=== PATIENT | female | born 1950 | race Caucasian/White ===

== ENCOUNTER 2024-07-30 10:49 | Outpatient (REF) | payer MEDICARE, SELFPAY ==
--- NOTE | ~2024-07-30 | XR_ITS ---
EXAMINATION: XR LUMBOSACRAL SPINE CLINICAL INFORMATION: M43.16 - Spondylolisthesis, lumbar region COMPARISON: None available. TECHNIQUE: 6 views of the lumbar spine, inclusive of flexion and extension views, were obtained. FINDINGS: There is a minimal right convex scoliosis, possibly positional. There is a normal lordosis. There is no fracture, compression deformity, or suspicious bone lesion. There are degenerative facet changes most notable L4-S1. There are mild to moderate degenerative disc changes L4-5 and L5-S1. There are otherwise mild disc degenerative changes. Neutral view demonstrates an 8 mm anterolisthesis of L4 on L5, and a 6 mm anterolisthesis of L5 on S1, both degenerative in appearance. Suggestion of pars defects at L4-5. On flexion exam, there is an 8 mm anterolisthesis of L4 on L5. There is a stable 6 mm anterolisthesis of L5 on S1. On extension exam there is a stable 8 mm anterolisthesis of L4 on L5. There is a stable 6 mm anterolisthesis of L5 on S1. There are vascular calcifications in the soft tissues. XR/XR lumbar spine 4V min IMPRESSION: 1. Moderate spondylosis of the lumbar spine most significant at L4-S1. 2. 8 mm degenerative anterolisthesis of L4 on L5, with questionable pars defects. 3. 6 mm degenerative anterolisthesis of L5 on S1. 4. Both subluxations appear unchanged on flexion and extension. There is no main film evidence of instability. Electronically signed by: Fermin Traore MD 08/02/2024 02:48 PM EDT
--- NOTE | ~2024-07-30 | XR_ITS ---
EXAMINATION: XR THORACIC SPINE CLINICAL INFORMATION: M54.9 - Dorsalgia, unspecified COMPARISON: None available. TECHNIQUE: 3 views of the thoracic spine were obtained. FINDINGS: There is a minimal levoconvex scoliosis, apex at T8. There is a normal kyphosis. There is no fracture, compression deformity, subluxation, or suspicious bone lesion. There is mild to moderate diffuse disc degeneration present. There is normal facet alignment. On the swimmer's view, degenerative changes of the lower cervical spine present with severe disc degeneration C4-5 and C5-6. Lungs appear somewhat hyperaerated likely reflective of COPD. There are vascular calcifications of the aorta. XR/XR thoracic spine 3V IMPRESSION: 1. No acute findings thoracic spine. Mild to moderate degenerative spondylosis. Electronically signed by: Fermin Traore MD 08/02/2024 02:41 PM EDT
== END 2024-07-30 10:50 | disposition home or self-care (01) ==
LOC: HO.XRAY 10:49
PROVIDERS: PCP Physician Assistant Medical; Referring Provider Internal Medicine Rheumatology; Visit Provider Nurse Practitioner Family
DX: M43.16 Spondylolisthesis, lumbar region (principal); M51.369 Other intervertebral disc degeneration, lumbar region without mention of lumbar back pain or lower extremity pain; M48.061 Spinal stenosis, lumbar region without neurogenic claudication; M54.16 Radiculopathy, lumbar region; M54.50 Low back pain, unspecified; M54.9 Dorsalgia, unspecified
CPT/HCPCS: 72072; 72110; 99202

== ENCOUNTER 2024-07-30 10:49 | Outpatient (AMB) | payer MEDICARE, SELFPAY ==
--- NOTE | 2024-07-30 10:59 | MHC.OFFVIS ---
Vital Signs 07/30/24 11:06 Height 5 ft 8 in Weight 183 lb BMI 27.8 BP 172/77 H Blood Pressure Location Rt brachial Position Sitting Pulse 63 Pulse Source Pulse Oximeter Pulse Oximetry (%) 97 Oxygen Delivery Method Room Air Intake Visit Reasons: Chronic Lower Back Pain/Sciatic Symptoms Intake Note: Pain today 5/10 Allergies erythromycin base Allergy (Unknown, Verified 07/30/24 11:05) Unknown lisinopril Allergy (Unknown, Verified 07/30/24 11:05) cough Medication List - Last Reconciled 07/31/24 by VALENTIN Meneses chlorthalidone 25 mg PO DAILY denosumab (Prolia) 60 mg subcut [id number] diltiazem HCl CD 180 mg PO DAILY famotidine 40 mg PO DAILY fluconazole 100 mg PO DAILY folic acid 1 mg PO DAILY ryan root extract 250 mg PO lidocaine 5% 1 patch topical DAILY 30 days losartan 100 mg PO DAILY magnesium oxide 200 mg PO .prn naproxen 500 mg PO DAILY timolol maleate 0.25% 1 drp ophthalmic (eye) DAILY HPI HPI Chronic Lower Back Pain/Sciatic Symptoms: Details: Patient is a 74 years old female with history of long standing chronic back pain, osteoporosis, RA, lumbar spinal stenosis with neurogenic claudication, presents today for second opinion for worsening low back pain with bilateral radiculopathy, worse on the left. She was referred by [facility]. Patient reports she completed lumbar spine MRI at [facility] in April and was seen by Dr. Echevarria at [facility] and was offered epidural steroid injection. She reports chronic lower back pain with mainly lateral and posterior of left leg numbness, tingling, weakness and bilateral neuropathy for many years, which has been worsening for past one year. She reports her legs become significantly numb during the night. Patient also reports mid-lower back pain when she makes certain movements. She recalls a sudden brief pain episode last month when she turned to the left and this increased her left lower thoracic and lower back pain and was quite unbearable. Patient reports despite daily pain, she remains physically active and used to regularly attend gym and doing hanging bar exercises for back until her late 50's because she injured her arms and shoulders and developed tendinitis. Back pain with sciatica symptoms has been present since her early 60's, alternating both sides but mainly on the left. Reports history of long distance bicycle rider in her 20's. Patient reports she usually walks 2 miles 2-3 times per week using walking sticks for balance. She has little dog at home and lives at home independently with her . Pain has been affecting her daily activities, functioning, mobility, sleep and social interactions. Denies any fever or chills, abdominal or groin pain, infection, rash, swelling, foot drop, bladder or bowel dysfunction, or saddle anesthesia. Reports left lower extremity intermittent weakness and bilateral numbness of both legs, worse at night with supine position. Patient reports history of prednisone treatments for RA in the past while residing in [facility]. She is currently on methotrexate for RA and Prolia for osteoporosis. Patient is a former tobacco smoker, reports h/o alcohol rehabilitation in through . Denies recreational drugs use or coffee intake. Location: Lower back pain with left sciatica, B/L leg numbness w/ supine sleep Duration: Chronic pain for 40 years, worsening for past one year Characteristics of symptom or complaint: Shooting, throbbing, cramping, aching, sore, heavy, radiating, throbbing Aggravating or associated factors: Walking, movements, cold weather, lifting, twisting, prolonged sitting Relieving factors: Heat therapy, Aleve, Tylenol, Aspirin, rest, homeopathic treatments Treatment: PT in 2019, Acupuncture, home exercise program, gym, walking [facility] Medical History (Updated 07/31/24 @ 08:13 by VALENTIN Meneses) Lumbar degenerative disc disease Spinal stenosis of lumbar region with radiculopathy Low back pain GERD (gastroesophageal reflux disease) HTN (hypertension) Rheumatoid arthritis Plantar fasciitis, right Osteoporosis Knee pain Surgical History Hx of tonsillectomy Review of Systems Const All systems reviewed & are unremarkable except as noted in HPI and below Physical Exam Vital Signs: Last Vital Signs Pulse 63 07/30/24 11:06 BP 172/77 H 07/30/24 11:06 Pulse Ox 97 07/30/24 11:06 Oxygen Delivery Method Room Air 07/30/24 11:06 BMI result Body Mass Index 27.8 General: Appears afebrile. Alert and oriented. Mood and affect appropriate. Follows and participates in conversation appropriately. Respiratory effort is unlabored. No cough. Able to transition from sit to stand unassisted. Ambulates with bilaterally normal heel strike and toe off. General: Yes no CVA tenderness Back/Spine/Pelvis Other: Partially limited lumbar ROM due to pain. Lumbar extension and flexion reproduces mild to moderate pain, worse with left lateral axial rotation. No limping. Can flex forward to 75-80 degrees and extend to 5-10 degrees before experiencing lumbar pain. Demonstrates 5/5 right and 4/5 left strength of quadriceps bilaterally as well as flexion/dorsiflexion of bilateral feet against resistance. 2+ pedal pulses bilaterally. Straight leg rise with dorsiflexion positive on the left. +2 right +1 left patellar and diminished achilles reflexes bilaterally. Facet loading test positive bilaterally. Florentino sign tender on the left, slight TTP on the right, Davis?s, Pelvic compression and Stinchfield tests are positive bilaterally, left>right. No groin pain with I/E hip rotations. Valsalva maneuver negative. Back: no CVA tenderness Cervical Spine: cervical ROM normal, No cervical muscular tenderness and No Cervical spine tenderness Thoracic/Lumbar Spine: thoracic and lumbar spine normal to inspection, No Thoracic/lumbar spine scar(s), Lasegue's sign positive on the left, pain with thoraco-lumbar ROM, paraspinal muscle tenderness on the left greater than right, thoraco-lumbar ROM limited, thoracic spinal tenderness (mid to lower thoracic) and lumbar spinal tenderness at L4 and at L5 Pelvis: buttock tenderness on the left Sacroiliac joints: bilaterally tender to palpation Extrem General: Yes capillary refill normal, Yes no clubbing, cyanosis or edema and Yes no calf tenderness Results Reviewed Results Reviewed: MR SPINE LUMBAR without CONTRAST 04/28/24 at [facility] INDICATION: Stenosis and nerve root impingement. Chronic lower back pain with left leg numbness, weakness, and neuropathy for many years. Left sciatica. TECHNIQUE: Unenhanced multiplanar, multisequence MR imaging of the lumbar spine. COMPARISON: None Available. FINDINGS: Grade I anterolisthesis of L4 on L5. Approximately 4 mm of slippage anteriorly. Normal signal intensity distal cord. Conus ends normally at L1 level. Bone marrow signal is within normal limits, and no suspicious osseous lesion is identified. Paraspinal soft tissues and visualized portions of the abdomen and pelvis are unremarkable. At T12-L1 there is diffuse bulge causing mild effacement of the central canal. No significant impression on the distal cord. At L1-2 there is diffuse bulge causing mild effacement of the thecal sac. At L2-3 there is diffuse bulge causing mild effacement of the thecal sac. At L3-4 there is diffuse bulge causing mild effacement of the thecal sac. At L4-5 there is diffuse bulge, facet joint arthropathy and hypertrophy of the ligamentum flavum contributing to a severe stenosis. Diffuse bulge extends into the left neural foramen narrowing the foramen but no significant impression on the exiting nerve root. At L5-S1 there is diffuse bulge and facet joint arthropathy causing moderate effacement of the thecal sac. Diffuse bulge is slightly touching the exiting right L5 nerve root beyond the foramen. IMPRESSION: Alignment abnormalities, degenerative disc disease and degenerative changes throughout the lower thoracic and lumbar spines as described. Findings are most severe at L4-5 where there is a severe stenosis. Assessment & Plan Assessment & Plan (1) Lumbar degenerative disc disease: Code(s): M51.369 - Other intervertebral disc degeneration, lumbar region without mention of lumbar back pain or lower extremity pain Category: Medical (2) Spinal stenosis of lumbar region with radiculopathy: Code(s): M48.061 - Spinal stenosis, lumbar region without neurogenic claudication; M54.16 - Radiculopathy, lumbar region Category: Medical (3) Low back pain: Code(s): M54.50 - Low back pain, unspecified Category: Medical (4) Lumbar degenerative disc disease: Code(s): M51.369 - Other intervertebral disc degeneration, lumbar region without mention of lumbar back pain or lower extremity pain Category: Medical (5) Spinal stenosis of lumbar region with radiculopathy: Code(s): M48.061 - Spinal stenosis, lumbar region without neurogenic claudication; M54.16 - Radiculopathy, lumbar region Category: Medical (6) Low back pain: Code(s): M54.50 - Low back pain, unspecified Category: Medical (7) Spondylolisthesis of lumbar region: Code(s): M43.16 - Spondylolisthesis, lumbar region Category: Medical (8) Mid back pain: Code(s): M54.9 - Dorsalgia, unspecified Category: Medical (9) Spinal stenosis of lumbar region with radiculopathy: Code(s): M48.061 - Spinal stenosis, lumbar region without neurogenic claudication; M54.16 - Radiculopathy, lumbar region Category: Medical (10) Sacroiliitis: Code(s): M46.1 - Sacroiliitis, not elsewhere classified Category: Medical Plan Discussed interventional treatments for lumbar stenosis related pain as well as axial low back pain with mild SIJ pain components. Due to osteoporosis, we will avoid therapeutic [place] and proceed with Neurosurgery evaluation with our colleagues at [facility]. Thoracic spine and lumbar spine with flexion and extension imaging to assess degree of degenerative changes, any subluxation, listhesis, compression fractures or pars defects and follow up on recent MRI findings. Script provided for lidocaine patches per patient's request. Patient is aware to call if pain worsens or if she develops any red flag symptoms to seek emergency care. Patient denies any cauda equina syndrome symptoms at this time. All questions and concerns have been answered and patient agreed with the plan. Follow up for xray results/Neurosurgery eval and sooner as needed. Orders: Orders XR lumbar spine 4V min 07/30/24 M43.16 - Spondylolisthesis, lumbar region, M48.061 - Spinal stenosis, lumbar region without neurogenic claudication, M51.369 - Other intervertebral disc degeneration, lumbar region without mention of lumbar back pain or lower extremity pain, M54.16 - Radiculopathy, lumbar region, M54.50 - Low back pain, unspecified XR thoracic spine 3V 07/30/24 M54.9 - Dorsalgia, unspecified Referrals Neuro Spine Referral M48.061 - Spinal stenosis, lumbar region without neurogenic claudication, M54.16 - Radiculopathy, lumbar region Medications: New lidocaine 5% 1 patch topical DAILY 30 days 30 ea 0RF pain M48.061 - Spinal stenosis, lumbar region without neurogenic claudication, M51.369 - Other intervertebral disc degeneration, lumbar region without mention of lumbar back pain or lower extremity pain, M54.16 - Radiculopathy, lumbar region, M54.50 - Low back pain, unspecified Coding Level of Care Code New Pt Level 4 (01048) Complex EM visit Add On G2211 Diagnoses Lumbar degenerative disc disease M51.369 Spinal stenosis of lumbar region with radiculopathy M48.061; M54.16 Low back pain M54.50 Spondylolisthesis of lumbar region M43.16 Mid back pain M54.9 Sacroiliitis M46.1
[2024-07-30 11:06] VITALS: BP 172/77; PULSE 63; O2SAT 97; BMI 27.8
--- OUTSIDE RECORDS SUMMARY | 2024-07-30 12:20 | XMS_ITS | Data Portability ---
Author Organization [place] - [employer] [facility], autoContract - [facility]Trans [facility] Address [address] [place] [address] Assessment Encounter Date Assessment Date Assessment LastModified by Organization Details LastModified Time 04/09/2024 04/09/2024 Head injury from garage door accident - Assessment: No signs of concussion or significant damage. Patient reports tenderness and a bump on the head. - Plan: - Reassure the patient that the injury is healing - Advise her to monitor for any worsening symptoms or new neurological symptoms - If symptoms worsen, consider re-evaluation Microvascular ischemia - Assessment: Incidental finding on the CT scan. - Plan: - Continue with preventative health measures, including blood pressure and cholesterol management. BP well controlled. On statin. LDL at goal - Encourage her to maintain a healthy lifestyle, including regular exercise and a balanced diet Risks and benefits of the treatment plan were discussed thoroughly with patient. Patient is in agreement with the current plan of care and all questions were answered. Patient agreed to call immediately with any new or worsening symptoms for advice. Patient will follow up in 1 week if not improving (or as above) Not available 04/09/2024 15:18:07 05/13/2024 05/13/2024 Patient verbally consented to participate in a telehealth visit today. Prior to visit patient was offered a face to face encounter as well but preferred telemedicine. The patient is aware that if at any point they or the provider feel the visit is in not adequate they can opt for scheduling a face to face visit. Verbal consent for this telehealth visit was obtained after limitations of telehealth were discussed with the patient. Risk of using a telemedicine provider include limited overall physical examination findings which may be difficult with diagnostic accuracy. OV declined Video not available IGT A1c 5.7 Continue diet exercise Reassess 4 to 6 months Hypocalcemia Possible secondary hyperparathyroidism Improvement on calcium and vitamin D without resolution Previous significant increase in PTH may have been secondary to recent Prolia injection Patient is interested in further evaluation off hypocalcemia and osteoporosis, will refer to endocrinology Restless legs Ferritin 72 Continue periodic monitoring of iron levels Venous insufficiency Plan in place with [facility] vein center Spinal stenosis Plan in place with orthopedics, considering ESL Microvascular ischemic changes on head CT at ER, possible history of infarction Check cranial MRI Normal echo 2017 Chronic inflammatory disorder may be contributing Continue best efforts at modifying vascular risk factors Hyperlipidemia CAC score 120 (2019), repeat 2024 Continue rosuvastatin 5 qd RA Plan in place with rheumatology Patient is in agreement with the current plan of care and all questions were answered. Patient agreed to call immediately or go straight to the emergency room with any new or worsening symptoms, or any symptoms that patient or others find worrisome; patient will proceed to the ER immediately if unable to reach our office Patient will follow up if no improvement after implementing care plan above Not available 05/15/2024 19:51:55 Plan of Treatment Reminders Order Date Submit Date Provider Last Modified By Organization Details Last Modified Time Details Appointments None recorded . Lab CBC 024 05/15/20 [facility], [address], [place], [address], 4 19:50:25 iron + TIBC + ferritin , serum 024 05/15/20 [facility], [address], [place], [address], 4 19:50:24 CMP, serum or plasma 024 05/15/20 [facility], [address], [place], [address], 4 19:50:26 HbA1c (hemoglo bin A1c), blood 024 05/15/20 [facility], [address], [place], [address], 4 19:50:25 lipid panel, serum 024 05/15/20 [facility], [address], [place], [address], 19:50:26 Referral None recorded . Procedures None recorded . Surgeries None recorded . Imaging None recorded . Medication Orders None recorded . Patient TargetsNo targets recorded. Patient InstructionsNo instructions recorded. Reason for Referral None Reported. Results Created Date Observation Date Name Description Value Unit Range Abnormal Flag Note LastModifiedBy Organization Detail LastModifiedTime 05/06/20 24 05/07/2024 PTH, INTAC T (ICMA ) AND IONIZ ED CALCI UM parathyroid hormone, intact 114 pg/mL 16-77 high Inter preti ve Guide Intac t PTH Calci um ----- ----- ----- --- ----- ----- ----- -- Lorena l Parat hyroi d Lorena l Lorena l Hypop yandy yroid ism Low or Low Lorena l Low Hyper parat hyroi dism Prima ry Lorena l or High High Secon jovita High Lorena l or Low Terti anthony High High Non-P yandy yroid Hyper calce theodore Low or Low Lorena l High Not Available [facility] [place] [facility] [address], [address], 05/07/2024 14:52:34 05/06/20 24 05/07/2024 PTH, INTAC T (ICMA ) AND IONIZ ED CALCI UM calcium 8.5 mg/dL 8.6-10 .4 low Not Available [facility] [place] [facility] [address], [address], 05/07/2024 14:52:34 05/06/20 24 05/07/2024 PTH, INTAC T (ICMA ) AND IONIZ ED CALCI UM calcium, ionized 4.8 mg/dL 4.7-5. 5 normal Not Available [facility] [address], [address], 05/07/2024 14:52:34 05/06/20 24 05/07/2024 LIPID PANEL WITH REFLE X TO DIREC T LDL cholesterol, total 174 mg/dL <200 normal Not Available [facility] [place] [facility] [address], [place], [address], 05/07/2024 14:52:35 05/06/20 24 05/07/2024 LIPID PANEL WITH REFLE X TO DIREC T LDL HDL cholesterol 80 mg/dL > or = 50 normal Not Available [facility] [place] [facility] [address], [place], [address], 05/07/2024 14:52:35 05/06/20 24 05/07/2024 LIPID PANEL WITH REFLE X TO DIREC T LDL triglyceride s 72 mg/dL <150 normal Not Available [facility] [place] [facility] [address], [place], [address], 05/07/2024 14:52:35 05/06/20 24 05/07/2024 LIPID PANEL WITH REFLE X TO DIREC T LDL LDL-choleste rol 79 mg/dL _(charles c) normal Refer ence range : <100 Tommy able range <100 mg/dL for prima ry preve ntion ; <70 mg/dL for patie nts with CHD or diabe tic patie nts with > or = 2 CHD risk facto rs. LDL-C is now calcu lated using the Emily n-Hop kins calcu jace n, which is a valid ated novel metho d provi ding mick r accur acy than the Fried balaji equat ion in the estim ation of LDL-C . Emily ahn SS et al. MELBA. 2013; 310(1 9): 2061- 2068 (http ://ed ucati on.Qu Rowena obrienIngageapps. com/f aq/FA Q164) Not Available [facility] [address], [place], [address], 05/07/2024 14:52:35 05/06/20 24 05/07/2024 LIPID PANEL WITH REFLE X TO DIREC T LDL chol/HDLC ratio 2.2 (calc ) <5.0 normal Not Available [facility] [address], [place], [address], 05/07/2024 14:52:35 05/06/20 24 05/07/2024 LIPID PANEL WITH REFLE X TO DIREC T LDL non HDL cholesterol 94 mg/dL _(charles c) <130 normal For patie nts with diabe romeo plus 1 major ASCVD risk facto r, treat ing to a non-H DL-C goal of <100 mg/dL (LDL- C of <70 mg/dL ) is chase oden therakshat rhodes optio n. Not Available [facility] [address], [place], [address], 05/07/2024 14:52:35 05/06/20 24 05/07/2024 IRON AND TOTAL IRON SHELLY NG CAPAC ITY iron, total 90 mcg/d L 45-160 normal Not Available [facility] [address], [place], [address], 05/07/2024 14:52:35 05/06/20 24 05/07/2024 IRON AND TOTAL IRON SHELLY NG CAPAC ITY iron binding capacity 319 mcg/d L_(ca lc) 250-45 0 normal Not Available [facility] [address], [place], [address], 05/07/2024 14:52:35 05/06/20 24 05/07/2024 IRON AND TOTAL IRON SHELLY NG CAPAC ITY % saturation 28 %_(ca lc) 16-45 normal Not Available [facility] [address], [place], [address], 05/07/2024 14:52:35 05/06/20 24 05/07/2024 COMPR EHENS NOMI METAB OLIC PANEL glucose 105 mg/dL 65-99 high Fasti ng refer ence inter ceasar For someo ne witho ut known diabe romeo, a gluco se value betwe en 100 and 125 mg/dL is consi stent with predi abete s and shoul d be confi rmed with a follo w-up test. Not Available [facility] [place] [facility] [address], [place], [address], 05/07/2024 14:52:36 05/06/2005/07/2024 COMPR EHENS NOMI METAB OLIC PANEL urea nitrogen (BUN) 15 mg/dL 7-25 normal Not Available [facility] [address], [place], [address], 05/07/2024 14:52:36 05/06/20 24 05/07/2024 COMPR EHENS NOMI METAB OLIC PANEL creatinine 0.70 mg/dL 0.60-1 .00 normal Not Available [facility] [place] [facility] [address], [place], [address], 05/07/2024 14:52:36 05/06/20 24 05/07/2024 COMPR EHENS NOMI METAB OLIC PANEL eGFR 92 mL/mi n/1.7 3m2 > or = 60 normal Not Available [facility] [address], [place], [address], 05/07/2024 14:52:36 05/06/20 24 05/07/2024 COMPR EHENS NOMI METAB OLIC PANEL BUN/creatini ne ratio SEE NOTE: (calc ) 6-22 Not Repor hill: BUN and Creat inine are withi n refer ence range . Not Available [facility] [address], [place], [address], 05/07/2024 14:52:36 05/06/20 24 05/07/2024 COMPR EHENS NOMI METAB OLIC PANEL sodium 140 mmol/ L 135-14 6 normal Not Available [facility] [address], [place], [address], 05/07/2024 14:52:36 05/06/20 24 05/07/2024 COMPR EHENS NOMI METAB OLIC PANEL potassium 4.2 mmol/ L 3.5-5. 3 normal Not Available [facility] [address], [place], [address], 05/07/2024 14:52:36 05/06/20 24 05/07/2024 COMPR EHENS NOMI METAB OLIC PANEL chloride 106 mmol/ L 98-110 normal Not Available [facility] [address], [place], [address], 05/07/2024 14:52:36 05/06/20 24 05/07/2024 COMPR EHENS NOMI METAB OLIC PANEL carbon dioxide 26 mmol/ L 20-32 normal Not Available [facility] [address], [place], [address], 05/07/2024 14:52:36 05/06/20 24 05/07/2024 COMPR EHENS NOMI METAB OLIC PANEL calcium 8.5 mg/dL 8.6-10 .4 low Not Available [facility] [address], [place], [address], 05/07/2024 14:52:36 05/06/20 24 05/07/2024 COMPR EHENS NOMI METAB OLIC PANEL protein, total 7.0 g/dL 6.1-8. 1 normal Not Available [facility] [address], [place], [address], 05/07/2024 14:52:36 05/06/20 24 05/07/2024 COMPR EHENS NOMI METAB OLIC PANEL albumin 3.9 g/dL 3.6-5. 1 normal Not Available [facility] [address], [place], [address], 05/07/2024 14:52:36 05/06/20 24 05/07/2024 COMPR EHENS NOMI METAB OLIC PANEL globulin 3.1 g/dL_ (calc ) 1.9-3. 7 normal Not Available [facility] [address], [place], [address], 05/07/2024 14:52:36 05/06/20 24 05/07/2024 COMPR EHENS NOMI METAB OLIC PANEL albumin/glob ulin ratio 1.3 (calc ) 1.0-2. 5 normal Not Available [facility] [address], [place], [address], 05/07/2024 14:52:36 05/06/20 24 05/07/2024 COMPR EHENS NOMI METAB OLIC PANEL bilirubin, total 0.6 mg/dL 0.2-1. 2 normal Not Available [facility] [address], [place], [address], 05/07/2024 14:52:36 05/06/20 24 05/07/2024 COMPR EHENS NOMI METAB OLIC PANEL alkaline phosphatase 72 U/L 37-153 normal Not Available [facility] [address], [place], [address], 05/07/2024 14:52:36 05/06/20 24 05/07/2024 COMPR EHENS NOMI METAB OLIC PANEL AST 20 U/L 10-35 normal Not Available [facility] [address], [place], [address], 05/07/2024 14:52:36 05/06/20 24 05/07/2024 COMPR EHENS NOMI METAB OLIC PANEL ALT 25 U/L 6-29 normal Not Available [facility] [place] [facility] [address], [place], [address], 05/07/2024 14:52:36 05/06/20 24 05/07/2024 CBC (INCL UDES DIFF/ PLT) white blood cell count 5.6 thous and/u L 3.8-10 .8 normal Not Available [facility] [place] [facility] [address], [place], [address], 05/07/2024 14:52:36 05/06/20 24 05/07/2024 CBC (INCL UDES DIFF/ PLT) red blood cell count 4.27 ashok on/uL 3.80-5 .10 normal Not Available [facility] [place] [facility] [address], [place], [address], 05/07/2024 14:52:36 05/06/20 24 05/07/2024 CBC (INCL UDES DIFF/ PLT) hemoglobin 13.4 g/dL 11.7-1 5.5 normal Not Available [facility] [place] [facility] [address], [place], [address], 05/07/2024 14:52:36 05/06/20 24 05/07/2024 CBC (INCL UDES DIFF/ PLT) hematocrit 40.5 % 35.0-4 5.0 normal Not Available [facility] [place] [facility] [address], [place], [address], 05/07/2024 14:52:36 05/06/20 24 05/07/2024 CBC (INCL UDES DIFF/ PLT) MCV 94.8 fL 80.0-1 00.0 normal Not Available [facility] [place] [facility] [address], [place], [address], 05/07/2024 14:52:36 05/06/20 24 05/07/2024 CBC (INCL UDES DIFF/ PLT) MCH 31.4 pg 27.0-3 3.0 normal Not Available [facility] [place] [facility] [address] [place], [place], [address], 05/07/2024 14:52:36 05/06/20 24 05/07/2024 CBC (INCL UDES DIFF/ PLT) MCHC 33.1 g/dL 32.0-3 6.0 normal For adult s, a sligh t decre ase in the calcu lated MCHC value (in the range of 30 to 32 g/dL) is most likel y not clini maikol signi fican t; fahad er, it shoul d be inter prete d with cauti on in corre lat n with other red cell tj eters and the patie nt's clini charles condi tion. Not Available [facility] [place] [facility] [address] [place], [place], [address], 05/07/2024 14:52:36 05/06/20 24 05/07/2024 CBC (INCL UDES DIFF/ PLT) RDW 14.1 % 11.0-1 5.0 normal Not Available [facility] [address] [place], [place], [address], 05/07/2024 14:52:36 05/06/20 24 05/07/2024 CBC (INCL UDES DIFF/ PLT) platelet count 275 thous and/u L 140-40 0 normal Not Available [facility] [address] [place], [place], [address], 05/07/2024 14:52:36 05/06/20 24 05/07/2024 CBC (INCL UDES DIFF/ PLT) MPV 10.3 fL 7.5-12 .5 normal Not Available [facility] [address], [place], [address], 05/07/2024 14:52:36 05/06/20 24 05/07/2024 CBC (INCL UDES DIFF/ PLT) absolute neutrophils 3662 cells /uL 1500-7 800 normal Not Available [facility] [place] [facility] [address], [place], [address], 05/07/2024 14:52:36 05/06/20 24 05/07/2024 CBC (INCL UDES DIFF/ PLT) absolute lymphocytes 1019 cells /uL 850-39 00 normal Not Available [facility] [place] [facility] [address], [place], [address], 05/07/2024 14:52:36 05/06/20 24 05/07/2024 CBC (INCL UDES DIFF/ PLT) absolute monocytes 538 cells /uL 200-95 0 normal Not Available [facility] [place] [facility] [address], [place], [address], 05/07/2024 14:52:36 05/06/20 24 05/07/2024 CBC (INCL UDES DIFF/ PLT) absolute eosinophils 330 cells /uL 15-500 normal Not Available [facility] [place] [facility] [address], [place], [address], 05/07/2024 14:52:36 05/06/20 24 05/07/2024 CBC (INCL UDES DIFF/ PLT) absolute basophils 50 cells /uL 0-200 normal Not Available [facility] [place] [facility] [address], [place], [address], 05/07/2024 14:52:36 05/06/20 24 05/07/2024 CBC (INCL UDES DIFF/ PLT) neutrophils 65.4 % normal Not Available [facility] [place] [facility] [address], [place], [address], 05/07/2024 14:52:36 05/06/20 24 05/07/2024 CBC (INCL UDES DIFF/ PLT) lymphocytes 18.2 % normal Not Available [facility] [place] [facility] [address], [place], [address], 05/07/2024 14:52:36 05/06/20 24 05/07/2024 CBC (INCL UDES DIFF/ PLT) monocytes 9.6 % normal Not Available [facility] [place] [facility] [address], [place], [address], 05/07/2024 14:52:36 05/06/20 24 05/07/2024 CBC (INCL UDES DIFF/ PLT) eosinophils 5.9 % normal Not Available [facility] [place] [facility] [address], [place], [address], 05/07/2024 14:52:36 05/06/20 24 05/07/2024 CBC (INCL UDES DIFF/ PLT) basophils 0.9 % normal Not Available [facility] [place] [facility] [address], [place], [address], 05/07/2024 14:52:36 05/06/20 24 05/07/2024 GLADYS TIN ferritin 72 NG/mL 16-288 normal Not Available [facility] [place] [facility] [address], [address], 05/07/2024 14:52:37 05/06/20 24 05/07/2024 VITAM IN D,25- OH,TO MIGUEL,I A vitamin D,25-oh,tota l,ia 36 NG/mL 30-100 normal Vitam in D Statu s 25-OH Vitam in D: Defic iency : <20 ng/mL Insuf ficie ncy: 20 - 29 ng/mL Optim al: > or = 30 ng/mL For 25-OH Vitam in D testi ng on patie nts on D2-blanchard pplem entat ion and patie nts for whom quant itati on of D2 and D3 fract ions is requi red, the [facility] Ass[facility] eD(TM ) 25-OH VIT D, (D2,D 3), LC/MS /MS is recom leann d: order code 57509 (amena ents >2yrs ). See Note 1 Note 1 For addit ional infor bassam de la cruz refer to http: //[facility] manuel ahn.Kane stDia gnost ics.c om/fa q/FAQ 199 (This link is being provi ded for infor abby quezada/ educa gema l purpo ses only. ) Not Available [facility] [place] [facility] [address], [address], 05/07/2024 14:52:37 05/06/20 24 05/07/2024 HEMOG LOBIN A1C WITH MPG hemoglobin A1C 5.7 %_of_ total _HGB <5.7 high For someo ne witho ut known diabe romeo, a hemog lobin A1c value betwe en 5.7% and 6.4% is consi stent with predi abete s and shoul d be confi rmed with a follo w-up test. For someo ne with known diabe romeo, a value <7% indic ates that their diabe romeo is well contr olled . A1c targe ts shoul d be indiv idual ized based on durat ion of diabe romeo, age, comor bid condi tions , and other consi derat ions. This assay resul t is consi stent with an incre ased risk of diabe romeo. Curre ntly, no conse nsus exist s regar ding use of hemog lobin A1c for diagn osis of diabe romeo for child angel. Not Available [facility] [place] [facility] [address], [address], 05/07/2024 14:52:38 05/06/20 24 05/07/2024 HEMOG LOBIN A1C WITH MPG mean plasma glucose 126 mg/dL _(charles c) Not Available [facility] [place] [facility] [address], [place], [address], 05/07/2024 14:52:38 05/04/20 24 05/03/2024 MRI, lumba r spine , w/o contr ast No observ ation record ed. [id number] [facility] [place] [address] [facility] [address], [place], [address], 05/09/2024 20:11:43 Result Notes None recorded. Problems Name Problem SNOMED Code Status Onset Date Resolution Date Notes Provider Name and Address Organization Details Recorded Time History of procedure 081443309 Active 2017 Echo Normal 08/29/17; TMC6Uuroh iption: History of echocardi ogram; QZQ50Omxm ription: History of echocardi ogram; dlname: Billie; dfname: Rita; Physician _Suffix: [place]; Physician _Phone: tel:[phone]; Physician _Fax: fax:[phone]; Physician _Addr1: [address] [place] [address]; Physician _Addr2: [facility] 6; Physician _City: [place]; Physician _State: [place]; Physician _PostalCo de: [id number]; Not Available [facility] 5 11:24:16 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 55862910091 645499 Active 2016 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/2015; TNZ6Ohyga iption: Neuropath y involving both lower extremiti es; NSP21Smbz ription: Neuropath y involving both lower extremiti es; NPI: [id number] 2; Not Available [facility] 5 11:24:16 Detachmen t of retina of left eye 47838308827 617426 Active 2019 Detached retina, left; JFZ1Immlw iption: Detached retina, left; CWS78Stjd ription: Detached retina, left; NPI: [id number] 2; Not Available [facility] 5 11:24:16 History of arthrosco py of knee joint 778143025 Active 2016 H/O arthrosco py of right knee; CEU2Hzfpe iption: H/O arthrosco py of right knee; MBE19Glxb ription: H/O arthrosco py of right knee; NPI: [id number] 2; Not Available [facility] 5 11:24:16 Electromy ogram abnormal 398601134 Active 2017 EMG LE 08/02/15; VZK5Axeof iption: Abnormal EMG; CKD48Mlim ription: Abnormal EMG; Not Available [facility] 5 11:24:16 Essential hypertens ion 11070379 Active 2016 Essential hypertens ion; FBY4Ogcxq iption: Essential hypertens ion; PQB99Frwf ription: Essential hypertens ion; NPI: [id number] 2; Not Available [facility] 5 11:24:17 Body mass index 25-29 - overweigh t 329501874 Active 2018 Overweigh t (BMI 25.0-29.9 ); OZG9Uhxht iption: Overweigh t (BMI 25.0-29.9 ); CMB21Vazs ription: Overweigh t (BMI 25.0-29.9 ); NPI: [id number] 2; Not Available [facility] 5 11:24:18 Chronic low back pain 591485704 Active 2018 Chronic bilateral low back pain with sciatica; KLR3Coqsv iption: Chronic bilateral low back pain with sciatica; SJL74Zaff ription: Chronic bilateral low back pain with sciatica; NPI: [id number] 2; Not Available [facility] 5 11:24:18 Degenerat ion of lumbar intervert ebral disc 54500424 Active 2019 Lumbar degenerat nomi disc disease; CYD8Clwmz iption: Lumbar degenerat nomi disc disease; BLU68Zdsz ription: Lumbar degenerat nomi disc disease; dlname: Delia; dfname: Blanchard; dminit: Gym; Physician _Suffix: MD; Physician _Specialt y: Rehabilit ation Medicine; NPI: [id number] 9; Not Available [facility] 5 11:24:19 History of cardiovas cular disease 414579766 Active 2017 History of Raynaud's syndrome; MVV4Lnwne iption: History of Raynaud's syndrome; JLN21Igdb ription: History of Raynaud's syndrome; Not Available [facility] 5 11:24:19 Senile osteoporo sis 22211095 Active 2017 osteoporo sis BMD 09/16/2017 ; T -2.7 spine, T -2.1; WXL1Ewuth iption: Age-relat ed osteoporo sis without current pathologi charles fracture; RPS69Aehk ription: Age-relat ed osteoporo sis without current pathologi charles fracture; NPI: [id number] 2; Not Available [facility] 5 11:24:20 Glaucoma 69338829 Active 2022 Unspecifi ed glaucoma; HGU3Mcftp iption: Unspecifi ed glaucoma; RIR96Vezy ription: Unspecifi ed glaucoma; NPI: [id number] 2; Not Available [facility] 5 11:24:21 Rheumatoi d arthritis of multiple joints 969880543 Active 2016 Rheumatoi d arthritis involving multiple sites with positive rheumatoi d factor; UYJ4Bcjqj iption: Rheumatoi d arthritis involving multiple sites with positive rheumatoi d factor; RNT18Anmo ription: Rheumatoi d arthritis involving multiple sites with positive rheumatoi d factor; NPI: [id number] 2; Not Available [facility] 5 11:24:22 Lumbar radiculop athy 354514674 Active 2019 Lumbar radiculop athy; KFU4Fqlby iption: Lumbar radiculop athy; ROU19Tioj ription: Lumbar radiculop athy; NPI: [id number] 9; Not Available [facility] 5 11:24:23 History of glaucoma 743561757 Active 2016 History of glaucoma; NIU1Fmsqv iption: History of glaucoma; QVH26Zrzj ription: History of glaucoma; NPI: [id number] 2; Not Available [facility] 5 11:24:23 Mixed hyperlipi demia 321703884 Active 2019 Mixed hyperlipi demia; AJS2Snqnl iption: Mixed hyperlipi demia; CZO42Gbcu ription: Mixed hyperlipi demia; NPI: [id number] 2; Not Available [facility] 5 11:24:23 Venous insuffici ency of leg 264137406 Active 2016 Venous insuffici ency of both lower extremiti es; LBR1Jjwre iption: Venous insuffici ency of both lower extremiti es; DGA44Epnm ription: Venous insuffici ency of both lower extremiti es; NPI: [id number]; Not Available [facility] 5 11:24:23 Restless legs 38563259 Active 2023 ANTONIETTA Carvajal [address], [place], [address] , [facility] 4 19:50:23 Spinal stenosis of lumbar region 01494678 Active 2023 ANTONIETTA Carvajal [address], [place], [address] , [place] [facility] 4 19:50:24 Periphera l venous insuffici ency 95553137 Active 2023 ANTONIETTA Carvajal [address], [place], [address] , [place] 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 4 19:50:29 Osteoporo sis 78273637 Active 2023 ANTONIETTA Carvajal [address], [place], , [place] [facility] 4 19:50:30 Impaired glucose tolerance 3872747 Active 2023 ANTONIETTA Carvajal [address], [place], , [facility] 4 19:50:33 Rheumatoi d arthritis 09840356 Active 2023 ANTONIETTA Carvajal [address] [place] [address], [address] , [facility] 4 19:52:06 Calcifica tion of coronary artery 037288941 Active 2023 ANTONIETTA Carvajal [address] [place] [address], [address] , [facility] 4 19:52:28 Problem Notes None recorded. Procedures Surgical History None recorded. Imaging Results Imaging Date Name Status LastModified by Organiz [facility] Details LastModified Time 05/03/2024 MRI, lumbar spine, w/o contrast completed [facility] [address] [facility] [address], [place], [address], 05/09/2024 20:11:43 Procedure Notes None recorded. Medical Equipment None Reported. Allergies Allergen ID Allergen Name Allergen Category Reaction Reaction Severity Criticality Documentation Date Start Date Code Code System Note Provider Name and Address Organization Details Recorded Time 1166 erythromy rico medicatio n Not available Not available Not available 04/09/2024 4053 RxNorm Rita Billie [facility] 4 14:22:49 1167 lisinopri l medicatio n Not available Not available Not available 04/09/2024 38182 RxNorm Rita Billie [facility] 4 14:23:03 Medications Name Sig Start Date Stop Date Status Note LastModified by Organization Details LastModified Time latanopro st 0.005 % eye drops INSTILL 1 DROP INTO LEFT EYE AT BEDTIME 2022 active Not Available Not Available Not Avai lable fluconazo le 100 mg tablet 04/09 completed Not Available Not Available Not Available diltiazem ER 180 mg capsule,2 4 hr,extend ed release Take 1 capsule (180 mg total) by mouth daily. 2023 active dfname: Syd kirkland; dlname: Avalos; Physicia n_Addr1: [address]; Physicia n_Addr2: [facility]; Physicia n_City: [place] ; Physicia n_State: [place]; [place] n_Postal Code: [id number]; NPI: [id number]; Physicia n_Suffix : SHAYNE; [employer] n_Phone: tel: [phone]; [employer] n_Fax: fax: [phone]; [place] n_Specia lty: Director [employer] ; Not Available Not Available Not Available diltiazem CD 180 mg capsule,e xtended release 24 hr active Not Available Not Available Not Available chlorthal idone 25 mg tablet 04/09 completed Not Available Not Available Not Available methotrex ate sodium 2.5 mg tablet Take 10 tablets (25 mg total) by mouth once a week. active dfname: Lillyic al; dlname: Henok ; [place] n_Addr1: [address] [facility]; [place] n[place]City: [place]; Physicia n_State: [place]; [place] n_Postal Code: [id number]; NPI: [id number]; Physicia n_Suffix : [place]; [employer] n_Phone: tel:[phone]; Not Available Not Available Not Available nystatin- triamcino lone 100,000 unit/g-0. 1 % topical cream Apply topicall y 2 (two) times a day. 05/13 completed Not Available Not Available Not Available folic acid 1 mg tablet Take 1 tablet (1 mg total) by mouth 4 (four) times a week. active NPI: [id number]; Not Available Not Available Not Available timolol maleate 0.5 % eye drops INSTILL 1 DROP INTO BOTH EYES TWICE A DAY active Not Available Not Available No t Available losartan 100 mg tablet TAKE 1 TABLET BY MOUTH DAILY active Not Available Not Available No t Available naproxen 500 mg tablet active Not Available Not Available Not Available rosuvasta tin 5 mg tablet TAKE 1 TABLET BY MOUTH DAILY active Not Available Not Available No t Available denosumab 60 mg/mL subcutane ous syringe Inject 1 mL (60 mg total) under the skin once. active NPI: [id number]; Not Available Not Available Not Available Vyzulta 0.024 % eye drops active Not Available Not Available No t Available Vitals Date Recorded Body weight Heart rate Systolic blood pressure Diastolic blood pressure Provider Name and Address Organization Details Last Updated DateTime 04/09/2024 20431.29 g 63 /min 122 mm[Hg] 75 mm[Hg] Rita Wise [facility] 04/09/2024 14:25:41 Social History None recorded. Functional Status None recorded. Mental Status None recorded. Family History Nothing Reported. Medical History No medical history recorded. Gynecological HistoryNo gynecological history recorded. Obstetrics History GPAL:G 0 P 0 0 0 0 Immunizations Vaccine Type Date Status Note Provider Nam e and Address Organization Details Recorded Time Td (adult), 5 Lf tetanus toxoid, preservative free, adsorbed 2 completed Not Available [facility] 07/05/2024 11:41:31 Tdap 9 completed Not Available [facility] 07/05/2024 11:41:31 COVID-19, mRNA, LNP-S, PF, 30 mcg/0.3 mL dose 1 completed Not Available [facility] 07/05/2024 11:41:31 COVID-19, mRNA, LNP-S, PF, 30 mcg/0.3 mL dose 1 completed Not Available [facility] 07/05/2024 11:41:31 Past Encounters Encounter ID Performer Location Encounter Start Date Encounter Closed Date Diagnosis/Indication Diagnosis SNOMED-CT Code Diagnosis ICD10 Code Diagnosis Note [id number] Shannan Keller APRN [id number] A_PCP [address] [place] [phone] 04/09/2024 14:04:42 04/09/2024 15:31:26 Injury of head 45987360 S09.90XA Contusion of head 135641 009 S00.93XA [id number] ANTONIETTA Carvajal [id number] A_PCP [address] [place] [id number] 1 05/13/2024 07:01:04 05/17/2024 10:16:35 Impaired glucose tolerance 4338862 R73.03 High hemog lobin A1c level 802164664 R73.09 Hypocalcemia 6920076 E83 .51 Osteoporosis 05579974 M8 1.0 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 525850485 R90.82 Peripheral venous insufficiency 04770331 I87.2 Restless legs 45304589 G 25.81 Spinal ajay nosis of lumbar region 65657465 M48.062 Adult heal th examination 128061597 Z00.00 Rheumatoid arthritis 698 13365 M06.9 Calcificat ion of coronary artery 107012301 I25.84 Health Concerns Section Related Observation LastModified by Organization Detai ls LastModified Time None Recorded Concern Status LastModified by Organization Details LastModified Time None Recorded Advance Directives Directive None Recorded Payers Encounter Date Sequence Insurance Name Policy Number Policy Adhikari Covered Member ID Adhikari Member ID Guarantor Name 04/09/2024 1 [facility] (MEDICARE REPLACEMENT/A DVANTAGE - HMO) [id number] Isabel Emerson [id number] Isabel Romanon 05/13/2024 1 [facility] (MEDICARE REPLACEMENT/A DVANTAGE - HMO) [id number] Isabel Emerson [id number] Isabel Emerson Notes Date Note Type Note Provider Name and Address Organization Details Recorded Time 04/09/2024 text/html Isabel comes into the office for a follow up after going to the ED on 03/25/24 after having an accident in her driveway on [facility], where the garage door closed on her head. She went to [place] and had a CT scan, which showed no acute findings. She was advised to see her provider for a follow-up. She denies experiencing headaches, visual changes, confusion, or difficulty concentrating, and has no nausea. She does have an improving contusion on her head. Shannan Keller, [address],[facility], [place], [address], [facility] 04/09/2024 15:18:55 05/13/2024 text/html Telehealth follo w up for labsThe patient's A1c level is 5.7, indicating borderline prediabetes. In response, she has made dietary changes, including watching carbohydrate intake and increasing physical activity. She reports losing 6-8 lbs. The patient mentions a family history of diabetes mellitus on the maternal side. The patient admits to having a sweet tooth and consuming cake on her birthday, but is now watching her carbohydrate intake. She is trying to walk more for exercise.She also has several other issues she would like to mention or discuss:The patient notes a recent history of treatment for venous insufficiency in both legs and is still recuperating. 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 The patient questions whether this could indicate a possible stroke. 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 The patient has stopped taking calcium supplements since the previous office visit.In the review of systems, the patient reports leg pain from venous insufficiency and back pain from spinal stenosis. She does not report any symptoms related to her borderline prediabetes. ANTONIETTA Carvajal [address] [place] [address], [phone], [facility] 05/15/2024 19:52:59 OBGyn Episode No OBEpisode recorded.
--- OUTSIDE RECORDS SUMMARY | 2024-07-30 12:20 | XMS_ITS | Clinical Summary ---
Author Organization [facility] Address [address] [place] [address] Care Team Providers Care Benzene Worker Name Role Phone Doreen Avalos PA-C Primary Care Provider Allergies Active Allergy Reactions Criticality Noted Date Comments Erythromycin 11/22/2014 Lisinopril 11/22/2014 Medications Medication Sig Dispensed Refills Start Date End Date Status methotrexate 2.5 MG tablet Take 10 tablets (25 mg total) by mouth once a week. 0 Active folic acid (FOLVITE) tablet 1 mg Take 1 tablet (1 mg total) by mouth 4 (four) times a week. 0 Active denosumab (PROLIA) injection 60 mg/mL Inject 1 mL (60 mg total) under the skin once. 0 Active Nyla, Zingiber officinalis, (NYLA ROOT PO) Take by mouth. 0 Acti ve timolol (TIMOPTIC) 0.5 % ophthalmic solution 0 05/29/2020 Active naproxen (NAPROSYN) 500 MG tablet 0 11/15/2022 Active latanoprost (XALATAN) 0.005 % ophthalmic solution INSTILL 1 DROP INTO LEFT EYE AT BEDTIME 0 03/05/2023 Active losartan (COZAAR) 100 MG tablet TAKE 1 TABLET BY MOUTH DAILY 90 tablet 3 09/24/2023 Active rosuvastatin (CRESTOR) tablet 5 mg TAKE 1 TABLET BY MOUTH DAILY 90 tablet 3 09/24/2023 Active nystatin-triamcinol one (MYCOLOG II) cream Apply topically 2 (two) times a day. 60 g 0 02/17/2024 Active dilTIAZem (CARDIZEM CD) 180 MG 24 hr capsule TAKE 1 CAPSULE BY MOUTH DAILY 90 capsule 3 03/11/2024 Active Active Problems Problem Noted Date Diagnosed Date Unspecified glaucoma 02/04/2023 Overview: Mixed hyperlipidemia 12/22/2019 Lumbar degenerative disc disease 09/08/2019 Lumbar radiculopathy 09/08/2019 Spinal stenosis of lumbar re gion with neurogenic claudication 09/08/2019 Detached retina, left 07/22/2019 Chronic bilateral low back pain with sciatica Overweight (BMI 25.0-29.9) 11/21/2018 History of Raynaud's syndrome 11/19/2017 EMG LE 08/02/15 11/19/2017 Overview: Mild symmetric sensory polyneuropathy and chronic L4 radiculopathy Left peroneal neuropathy bu no symptoms (normal exam) osteoporosis BMD 09/16/2017; T -2.7 spine, T -2.1 09/25/2017 Overview: 09-16-17 Osteopenia. LSS T -2.7 Hip - 2.1 Followed by Rheumatology Echo Normal 08/29/17 09/17/2017 Agatston coronary artery calcium score 120 2/202 0 09/07/2017 Essential hypertension 04/07/2017 Rheumatoid arthritis involvi ng multiple sites with positive rheumatoid factor 04/07/2017 History of glaucoma 04/07/2017 Venous insufficiency of both lower extremities 1 06/07/2016 LE axonal sensory polyneuropathy EMG 08/02/2015 H/O arthroscopy of right knee 04/07/2017 Resolved Problems Problem Noted Date Diagnosed Date Resolved Date Cologuard Negative 11/14/2017 12/01/2017 11/03/2023 Overview: 11/14/17 Sebaceous cyst 11/22/2014 04/07/2017 Immunizations Name Administration Dates Next Due Boostrix (Tdap) 11/21/2018 Covid-19 (Pfizer) Dilution Required 08/29/2020,0 08/08/2020 [facility] 04/14/2012 Family History Medical History Relation Name Comments No Sig Med Hx Father Atrial fibrillation Mother Other Mother at age 92 cause unknown Stroke Mother Relation Name Status Comments Father Mother Social History Tobacco Use Types Packs/Day Years Used Date Smoking Tobacco: Former Cigarettes Q uit: 04/07/1979 Smokeless Tobacco: Never Alcohol Use Standard Drinks/Week Comments No 0 (1 standard drink = 0.6 oz pur e alcohol) No Drink since 1978 Sex and Gender Information Value Date Recorded Sex Assigned at Female 08/29/2020 10:42 AM EDT Gender Identity Not on file Sexual Orientation Not on file Job Start Date Occupation Industry Not on file Not on file Not on file Last Filed Vital Signs Vital Sign Reading Time Taken Comments Blood Pressure 146/59 03/25/2024 5:42 PM EDT Pulse 63 03/25/2024 5:42 PM EDT Temperature 36.3 ??C (97.4 ??F) 02/07/2024 11:35 AM E DT Respiratory Rate 18 03/25/2024 5:42 PM EDT Oxygen Saturation 98% 03/25/2024 5:42 PM EDT Inhaled Oxygen Concentration - - Weight 80.3 kg (177 lb) 03/25/2024 5:42 PM EDT Height 172.7 cm (5' 8 ) 03/25/2024 5:42 PM EDT Body Mass Index 26.91 03/25/2024 5:42 PM EDT Plan of Treatment Health Maintenance Due Date Last Done Comments Shingrix-Zoster Vaccine (1 of 2) 2002 Pneumococcal Vaccine (1 of 1 - PCV) 2017 COVID-19 Vaccine (3 - season) 2024 08/29/2020, 08/08/2020 Influenza Vaccine (#1) 2024 Osteoporosis Screening (DEXA Scan) 03/19/2024 03/19/2022, 12/30/2019 Depression Screening 11/02/2024 11/03/2023, 10/30/2022, 10/25/2021, Additional history exists Fall Risk Assessment 11/02/2024 11/03/2023, 10/30/2022, 10/25/2021, Additional history exists Preventative Health Evaluation 11/02/2024 11/03/2023, 11/03/2023, 10/30/2022, Additional history exists Breast Cancer Screening (Mammogram) 03/14/2025 03/14/2023, 03/04/2022, 02/08/2021, Additional history exists RSV Adult > 60+ Yrs or (1 - 1-dose 75+ series) 2027 DTap / Tdap / Td (2 - Td or Tdap) 11/21/2028 11/21/2018, 04/14/2012 Colon Cancer Screening (Colonoscopy) 11/18/2032 11/18/2022, 11/30/2020, 11/12/2017 Hepatitis C Screening Completed 12/15/2019 Hepatitis B Vaccines Aged Out No long er eligible based on patient's age to complete this topic RSV Ped < 20 months Aged Out No longe r eligible based on patient's age to complete this topic Procedures Procedure Name Priority Date/Time Associated Diagnosis Comments PTH, INTACT (ICMA) AND IONIZED CALCIUM Routine 05/06/2024 7:05 AM EST osteoporosis BMD 09/16/2017; T -2.7 spine, T -2.1 Vitamin D deficiency Secondary hyperparathyroidism (HCC) Prediabetes Medication monitoring encounter Hypocalcemia Restless legs Sleep related leg cramps Fatigue, unspecified type Mixed hyperlipidemia FERRITIN Routine 05/06/2024 7:05 AM EST osteoporosis BMD 09/16/2017; T -2.7 spine, T -2.1 Vitamin D deficiency Secondary hyperparathyroidism (HCC) Prediabetes Medication monitoring encounter Hypocalcemia Restless legs Sleep related leg cramps Fatigue, unspecified type Mixed hyperlipidemia IRON PANEL (IRON,TIBC,%SAT) Routine 05/06/2024 7:05 AM EST osteoporosis BMD 09/16/2017; T -2.7 spine, T -2.1 Vitamin D deficiency Secondary hyperparathyroidism (HCC) Prediabetes Medication monitoring encounter Hypocalcemia Restless legs Sleep related leg cramps Fatigue, unspecified type Mixed hyperlipidemia HEMOGLOBIN A1C WITH MPG Routine 05/06/2024 7:05 AM EST osteoporosis BMD 09/16/2017; T -2.7 spine, T -2.1 Vitamin D deficiency Secondary hyperparathyroidism (HCC) Prediabetes Medication monitoring encounter Hypocalcemia Restless legs Sleep related leg cramps Fatigue, unspecified type Mixed hyperlipidemia LIPID PANEL WITH REFLEX TO DIRECT LDL Routine 05/06/2024 7:05 AM EST osteoporosis BMD 09/16/2017; T -2.7 spine, T -2.1 Vitamin D deficiency Secondary hyperparathyroidism (HCC) Prediabetes Medication monitoring encounter Hypocalcemia Restless legs Sleep related leg cramps Fatigue, unspecified type Mixed hyperlipidemia COMPREHENSIVE METABOLIC PANEL RANDOM/FASTING Routine 05/06/2024 7:05 AM EST osteoporosis BMD 09/16/2017; T -2.7 spine, T -2.1 Vitamin D deficiency Secondary hyperparathyroidism (HCC) Prediabetes Medication monitoring encounter Hypocalcemia Restless legs Sleep related leg cramps Fatigue, unspecified type Mixed hyperlipidemia CBC W/AUTO DIFFERENTIAL Routine 05/06/2024 7:05 AM EST osteoporosis BMD 09/16/2017; T -2.7 spine, T -2.1 Vitamin D deficiency Secondary hyperparathyroidism (HCC) Prediabetes Medication monitoring encounter Hypocalcemia Restless legs Sleep related leg cramps Fatigue, unspecified type Mixed hyperlipidemia 25-HYDROXY VITAMIN D Routine 05/06/2024 7:05 AM EST osteoporosis BMD 09/16/2017; T -2.7 spine, T -2.1 Vitamin D deficiency Secondary hyperparathyroidism (HCC) Prediabetes Medication monitoring encounter Hypocalcemia Restless legs Sleep related leg cramps Fatigue, unspecified type Mixed hyperlipidemia from Last 3 Months Results * (ABNORMAL) Comprehensive Metabolic panel Random/Fasting (05/06/2024 7:05 AM EST) [facility] Glucose 105(H) 65 - 99 mg/dL [facility] Comment: ? Fasting reference interval For someone without known diabetes, a glucose value between 100 and 125 mg/dL is consistent with prediabetes and should be confirmed with a follow-up test. Urea Nitrogen (BUN) 15 7 - 25 mg/dL [facility] Creatinine, Serum 0.70 0.60 - 1.00 mg/dL [facility] EGFR 92 > OR = 60 mL/min/1. 73m2 [facility] BUN/Creatinine Ratio SEE NOTE: 6 - 22 (calc) [facility] Comment: ?? Not Reported: BUN and Creatinine are within ?? reference range. ? Sodium 140 135 - 146 mmol/L [facility] POTASSIUM 4.2 3.5 - 5.3 mmol/L [facility] Chloride 106 98 - 110 mmol/L [facility] Carbon Dioxide 26 20 - 32 mmol/L [facility] Calcium 8.5(L) 8.6 - 10.4 mg/dL [facility] PROTEIN, TOTAL 7.0 6.1 - 8.1 g/dL [facility] ALBUMIN 3.9 3.6 - 5.1 g/dL [facility] GLOBULIN 3.1 1.9 - 3.7 g/dL (calc) [facility] Albumin/Globulin Ratio 1.3 1.0 - 2.5 (calc) [facility] Bilirubin, Total 0.6 0.2 - 1.2 mg/dL [facility] ALKALINE PHOSPHATASE 72 37 - 153 U/L [facility] AST 20 10 - 35 U/L [facility] ALT 25 6 - 29 U/L [facility] 05/06/2024 7:05 AM EST 05/06/2024 7:06 AM EST Narrative Resulting Agency Comment Performing Organization Information: ?Site ID: [id number] ?Name: [employer] ?Address: [address] [place] [id number] ?Director: Jamey Nath M.D. Doreen Avalos PA-C LAB BLOOD ORDERABLES [facility] * CBC W/Auto Differential (05/06/2024 7:05 AM EST) White Blood Cell Count 5.6 3.8 - 10.8 Thousand/ uL [facility] Red Blood Cell Count 4.27 3.80 - 5.10 Million/u L [facility] Hemoglobin 13.4 11.7 - 15.5 g/dL [facility] Hematocrit 40.5 35.0 - 45.0 % [facility] MCV 94.8 80.0 - 100.0 fL [facility] MCH 31.4 27.0 - 33.0 pg [facility] MCHC 33.1 32.0 - 36.0 g/dL [facility] Comment: For adults, a slight decrease in the calculated MCHC value (in the range of 30 to 32 g/dL) is most likely not clinically significant; however, it should be interpreted with caution in correlation with other red cell parameters and the patient's clinical condition. RDW 14.1 11.0 - 15.0 % [facility] Platelet Count 275 140 - 400 Thousand/ uL [facility] MPV 10.3 7.5 - 12.5 fL [facility] Absolute Neutrophils 3,662 1,500 - 7,800 cells/uL [facility] Absolute Band Neutrophils CANCELED 0 - 750 cells/uL [facility] Comment:Result canceled by t he ancillary. Absolute Metamyelocytes CANCELED 0 cells/uL [facility] Comment:Result canceled by t he ancillary. Absolute Myeloctytes CANCELED 0 cells/uL [facility] Comment:Result canceled by t he ancillary. Absolute Promyelocytes CANCELED 0 cells/uL [facility] Comment:Result canceled by t he ancillary. Absolute Lymphocytes 1,019 850 - 3,900 cells/uL [facility] Absolute Monocytes 538 200 - 950 cells/uL [facility] Absolute Eosinophils 330 15 - 500 cells/uL [facility] Absolute Basophils 50 0 - 200 cells/uL [facility] Absolute Blasts CANCELED 0 cells/uL [facility] Comment:Result canceled by t he ancillary. Absolute Nucleated RBC CANCELED 0 cells/uL [facility] Comment:Result canceled by t he ancillary. Neutrophils 65.4 % [facility] Band Neutrophils CANCELED % [facility] Comment:Result canceled by t he ancillary. Metamyelocytes CANCELED % [facility] Comment:Result canceled by t he ancillary. Myelocytes CANCELED % [facility] Comment:Result canceled by t he ancillary. Promyelocytes CANCELED % [facility] Comment:Result canceled by t he ancillary. Lymphocytes 18.2 % [facility] Reactive Lymphocytes CANCELED 0 - 10 % [facility] Comment:Result canceled by t he ancillary. Monocytes 9.6 % [facility] Eosinophils 5.9 % [facility] Basophils 0.9 % [facility] Blasts CANCELED % [facility] Comment:Result canceled by t he ancillary. Nucleated RBC CANCELED 0 /100 WBC [facility] Comment:Result canceled by t he ancillary. Comment(s) CANCELED [facility] Comment:Result canceled by t he ancillary. 05/06/2024 7:05 AM EST 05/06/2024 7:06 AM EST Narrative Resulting Agency Comment Performing Organization Information: ?Site ID: [id number] ?Name: [employer] ?Address: [address] [place] [address] ?Director: Jamey Nath M.D. Doreen Avalos PA-C LAB BLOOD ORDERABLES Performing Organization Address [facility] de Phone Number [facility] * Iron Panel (Iron,TIBC,%Sat) (05/06/2024 7:05 AM EST) IRON, TOTAL 90 45 - 160 mcg/dL [facility] IRON BINDING CAPACITY 319 250 - 450 mcg/dL (calc) [facility] % SATURATION 28 16 - 45 % (calc) [facility] 05/06/2024 7:05 AM EST 05/06/2024 7:06 AM EST Narrative Resulting Agency Comment Performing Organization Information: ?Site ID: [id number] ?Name: [employer] ?Address: [address] [place] [address] ?Director: Jamey Nath M.D. Doreen Avalos PA-C LAB BLOOD ORDERABLES Performing Organization Address [facility] Phone Number [facility] * Ferritin (05/06/2024 7:05 AM EST) FERRITIN 72 16 - 288 ng/mL [facility] 05/06/2024 7:05 AM EST 05/06/2024 7:06 AM EST Narrative Resulting Agency Comment Performing Organization Information: ?Site ID: [id number] ?Name: [employer] ?Address: [address] [place] [address] ?Director: Jamey Nath M.D. Doreen Avalos PA-C LAB BLOOD ORDERABLES Performing Organization Address [facility] de Phone Number [facility] * 25-Hydroxy Vitamin D (05/06/2024 7:05 AM EST) Vitamin D,25-OH, Total 36 30 - 100 ng/mL [facility] Comment: Vitamin D Status ? 25-OH Vitamin D: Deficiency: ?<20 ng/mL Insufficiency: ? 20 - 29 ng/mL Optimal: ? > or = 30 ng/mL For 25-OH Vitamin D testing on patients on D2-supplementation and patients for whom quantitation of D2 and D3 fractions is required, the QuestAssureD(TM) 25-OH VIT D, (D2,D3), LC/MS/MS is recommended: order code 55981 (patients >2yrs). See Note 1 Note 1 For additional information, please refer to http://education.internetstores/faq/YTH104 (This link is being provided for informational/ educational purposes only.) 05/06/2024 7:05 AM EST 05/06/2024 7:06 AM EST Narrative Resulting Agency Comment Performing Organization Information: ?Site ID: [id number] ?Name: [employer] ?Address: [address] [place] [phone] ?Director: Jamey Nath M.D. Doreen Avalos PA-C LAB BLOOD ORDERABLES [facility] * (ABNORMAL) PTH, INTACT (ICMA) AND IONIZED CALCIUM (05/06/2024 7:05 AM EST) PARATHYROID HORMONE, INTACT 114(H) 16 - 77 pg/mL [facility] Comment: Interpretive Guide ?Intact PTH ? Calcium ? ------- Normal Parathyroid ?Normal ? Normal Hypoparathyroidism ?Low or Low Normal ?Low Hyperparathyroidism ?? Primary ?Normal or High ? High ?? Secondary ?High ? Normal or Low ?? Tertiary ? High ? High Non-Parathyroid ?? Hypercalcemia ?Low or Low Normal ?High Calcium 8.5(L) 8.6 - 10.4 mg/dL [facility] CALCIUM, IONIZED 4.8 4.7 - 5.5 mg/dL [facility] 05/06/2024 7:05 AM EST 05/06/2024 7:06 AM EST Narrative Resulting Agency Comment Performing Organization Information: ?Site ID: [id number] ?Name: [employer] ?Address: [address] [place] [id number] ?Director: Jamey Nath M.D. Doreen Avalos PA-C LAB BLOOD ORDERABLES [facility] * Lipid Panel with Reflex to Direct LDL (05/06/2024 7:05 AM EST) Cholesterol, Total 174 <200 mg/dL [facility] HDL Cholesterol 80 > OR = 50 mg/dL [facility] Triglycerides 72 <150 mg/dL [facility] LDL-Cholesterol 79 mg/dL (calc) [facility] Comment: Reference range: <100 Desirable range <100 mg/dL for primary prevention; ?? <70 mg/dL for patients with CHD or diabetic patients with > or = 2 CHD risk factors. LDL-C is now calculated using the Eliazar calculation, which is a validated novel method providing better accuracy than the Friedewald equation in the estimation of LDL-C. Malcom CISNEROS et al. MELBA. 2013;310(19): 7414-6435 (http://education.internetstores/faq/VCX381) Chol/HDLC Ratio 2.2 <5.0 (calc) [facility] Non HDL Cholesterol 94 <130 mg/dL (calc) [facility] Comment: For patients with diabetes plus 1 major ASCVD risk factor, treating to a non-HDL-C goal of <100 mg/dL (LDL-C of <70 mg/dL) is considered a therapeutic option. 05/06/2024 7:05 AM EST 05/06/2024 7:06 AM EST Narrative Resulting Agency Comment Performing Organization Information: ?Site ID: [id number] ?Name: [employer] ?Address: [address] [place] [phone] ?Director: Jamey Nath M.D. Doreen Avalos PA-C LAB BLOOD ORDERABLES Performing Organization Address [facility] de Phone Number [facility] * (ABNORMAL) HEMOGLOBIN A1C WITH MPG (05/06/2024 7:05 AM EST) Hemoglobin A1c 5.7(H) <5.7 % of total Hgb [facility] Comment: For someone without known diabetes, a hemoglobin A1c value between 5.7% and 6.4% is consistent with prediabetes and should be confirmed with a follow-up test. For someone with known diabetes, a value <7% indicates that their diabetes is well controlled. A1c targets should be individualized based on duration of diabetes, age, comorbid conditions, and other considerations. This assay result is consistent with an increased risk of diabetes. Currently, no consensus exists regarding use of hemoglobin A1c for diagnosis of diabetes for children. MEAN PLASMA GLUCOSE 126 mg/dL (calc) [facility] 05/06/2024 7:05 AM EST 05/06/2024 7:06 AM EST Narrative Resulting Agency Comment Performing Organization Information: ?Site ID: [id number] ?Name: [employer] ?Address: [address] [place] [id number] ?Director: Jamey Nath M.D. Authorizing Provider Result Ashley Avalos PA-C LAB BLOOD ORDERABLES [facility] from Last 3 Months Care Teams Benzene Worker Relationship Specialty Start Date End Date Doreen Avalos PA-C PCP - General Physician Claim Agent 11/22/14
--- OUTSIDE RECORDS SUMMARY | 2024-07-30 12:20 | XMS_ITS ---
Author Name [facility] Organization Unknown Results Test Name/Text Value Interpretation Date Range Source MCHC RBC Auto-mCnc 33.1g/dL Normal 32 - 36 [facility] Eosinophil/leuk NFr Bld Auto 5.9% Normal [facility] RBC # Bld Auto 4.27Million/uL Normal [id number] 3.8 - 5 .1 [facility] Neutrophils # Bld Auto 3662cells/uL Normal 1500 - 7800 [facility] Basophils # Bld Auto 50cells/uL Normal [id number] 0 - 2 00 [facility] MCV RBC Auto 94.8fL Normal [id number] 80 - 100 QUES T Neutrophils/leuk NFr Bld Auto 65.4% Normal [id number] [facility] Basophils/leuk NFr Bld Auto 0.9% Normal [id number] [facility] RDW RBC Auto-Rto 14.1% Normal [id number] 11 - 15 [facility] Lymphocytes/leuk NFr Bld Auto 18.2% Normal [id number] [facility] Eosinophil # Bld Auto 330cells/uL Normal [id number] 15 - 500 [facility] Hct VFr Bld Auto 40.5% Normal [id number] 35 - 45 [facility] PMV Bld Soham-Marisela 10.3fL Normal [id number] 7.5 - 12 .5 [facility] Monocytes # Bld Auto 538cells/uL Normal [id number] 200 - 950 [facility] Monocytes/leuk NFr Bld Auto 9.6% Normal [id number] [facility] Lymphocytes # Bld Auto 1019cells/uL Normal 850 - 3900 [facility] WBC # Bld Auto 5.6Thousand/uL Normal [id number] 3.8 - 1 0.8 [facility] Hgb Bld-mCnc 13.4g/dL Normal [id number] 11.7 - 15.5 QU EST Platelet # Bld Auto 275Thousand/uL Normal 14 0 - 400 [facility] MCH RBC Qn Auto 31.4pg Normal 27 - 33 Q [facility] NonHDLc SerPl-mCnc 94mg/dL(calc) Normal - 13 0 [facility] Cholest SerPl-mCnc 174mg/dL Normal [id number] - 200 [facility] LDLc SerPl Calc-mCnc 79mg/dL(calc) Normal [facility] HDLc SerPl-mCnc 80mg/dL Normal [id number] - Q [facility] Trigl SerPl-mCnc 72mg/dL Normal [id number] - 150 [facility] Cholest/HDLc SerPl 2.2(calc) Normal [id number] - 5 [facility] 25(OH)D3+25(OH)D2 SerPl-mCnc 36ng/mL Normal 30 - 100 [facility] HbA1c MFr Bld 5.7%oftotalHgb Above high normal - 5.7 [facility] Est. average glucose Bld gHb Est-mCnc 126mg/dL(calc) Normal [facility] BUN/Creat SerPl SEE NOTE: Normal 6 - 22 Q [facility] Albumin SerPl-mCnc 3.9g/dL Normal 3.6 - 5. 1 [facility] ALT SerPl-cCnc 25U/L Normal 6 - 29 QU EST Prot SerPl-mCnc 7g/dL Normal 6.1 - 8.1 Q [facility] Glucose SerPl-mCnc 105mg/dL Above high normal 65 - 99 [facility] CO2 SerPl-sCnc 26mmol/L Normal 20 - 32 QU EST Chloride SerPl-sCnc 106mmol/L Normal 98 - 11 0 [facility] Bilirub SerPl-mCnc 0.6mg/dL Normal 0.2 - 1. 2 [facility] AST SerPl-cCnc 20U/L Normal 10 - 35 QU EST BUN SerPl-mCnc 15mg/dL Normal 7 - 25 QU EST ALP SerPl-cCnc 72U/L Normal 37 - 153 QU EST eGFRcr SerPlBld CKD-EPI 2020 92mL/min/1.73m 2 Normal - [facility] Globulin Ser Calc-mCnc 3.1g/dL(calc) Normal 1.9 - 3.7 [facility] Creat SerPl-mCnc 0.7mg/dL Normal 0.6 - 1 [facility] Sodium SerPl-sCnc 140mmol/L Normal 135 - 146 [facility] Potassium SerPl-sCnc 4.2mmol/L Normal 3.5 - 5.3 [facility] Calcium SerPl-mCnc 8.5mg/dL Below low normal 8 .6 - 10.4 [facility] Albumin/Glob SerPl 1.3(calc) Normal 1 - 2.5 [facility] Ferritin SerPl-mCnc 72ng/mL Normal 16 - 28 8 [facility] Ca-I SerPl-mCnc 4.8mg/dL Normal 4.7 - 5.5 Q [facility] PTH-Intact SerPl-mCnc 114pg/mL Above high normal [id number] 48 16 - 77 [facility] Calcium SerPl-mCnc 8.5mg/dL Below low normal 8 .6 - 10.4 [facility] TIBC SerPl-mCnc 319mcg/dL(calc ) Normal [id number] 250 - 450 [facility] Iron Satn MFr SerPl 28%(calc) Normal 16 - 45 [facility] Iron SerPl-mCnc 90mcg/dL Normal [id number] 45 - 160 Q [facility] History of Medication Use Medication Directions Dispensed Refills Start Date End Date Stat us Naproxen 500mg Delayed-Release Tablet 04/12/2024 ac tive MAGNESIUM 04/12/2024 active Allergies Allergen Reaction Severity Comment Documented Date Source Statu s ERYTHROMYCIN ENS_PODCRCT LISINOPRIL ENS_PODCRCT Problems Problem Status Onset Date Problem Type Date of Resolution Source [id number] - Heel pain active 2024-04-12 EncounterDiagnosisAct ENS_PO DCRCT Other hammer toe(s) (acquired), right foot active 2024-04-12 EncounterDiagnosisAct ENS_PO DCRCT Pain in left toe(s) active 2024-04-12 ProblemAct ENS_PODCRCT Porokeratoma active 2024-04-12 ProblemAct ENS_P ODCRCT Rheumatoid arthritis, right ankle and foot active 2024-04-12 ProblemAct ENS_PODCRCT Other hammer toe(s) (acquired), left foot active 2024-04-12 EncounterDiagnosisAct ENS_PO DCRCT Rheumatoid arthritis, left ankle and foot active 2024-04-12 EncounterDiagnosisAct ENS_ PODCRCT
--- OUTSIDE RECORDS SUMMARY | 2024-07-30 12:20 | XMS_ITS | Encounter Summary ---
Author Organization [facility] Address [address] [place] [address] Care Team Providers Care Supervisor Felting Name Role Phone Kade Cummings MD Primary Care Provider [phone] Encounter Details Date Type Department Care Team ([facility] st Contact Info) Description 07/22/2019 Prep for Surgery OPHTHALMOLOGY [address] [place] [address] Triston Fulton MD [address] [facility] [address] [place] [address] Social History Tobacco Use Types Packs/Day Years Used Date Smoking Tobacco: Former Cigarettes 0 07/22/1976 - 07/22/1981 Smokeless Tobacco: Never Alcohol Use Standard Drinks/Week Comments Never 0 (1 standard drink = 0.6 oz pur e alcohol) AUDIT-C Answer Date Recorded Frequency of Alcohol Consumption Never 07/22/2019 Average Number of Drinks Not on file 020 Frequency of Binge Drinking Not on file 06/27 Sex and Gender Information Value Date Recorded Sex Assigned at Not on file Gender Identity Not on file Sexual Orientation Not on file documented as of this encounter Plan of Treatment Not on file documented as of this encounter Visit Diagnoses Not on filedocumented in this encounter Care Teams Supervisor Felting Relationship Specialty Start Date End Date Kade Cummings MD [address] [place] [address] PCP - General Internal Medicine 04/25/17 documented as of this encounter
--- OUTSIDE RECORDS SUMMARY | 2024-07-30 12:20 | XMS_ITS | Clinical Summary ---
Author Organization [facility] Address [address] [place] [address] Care Team Providers Care Adaptive Physical Educator Name Role Phone Doreen Avalos Primary Care Provider [phone] Surgical History Surgery Date Site/Laterality Comments KNEE ARTHROSCOPY Right PROCEDURE:KNEE ARTHROSCOPY SECTION PROCEDURE: SECTION TONSILLECTOMY PROCEDURE:TONSILLECTOMY Medical History Medical History Date Comments Hypertension DX:Hypertension Glaucoma DX:Glaucoma Rheumatoid aortitis DX:Rheumatoi d aortitis Family History Medical History Relation Name Comments No Known Problems Father Atrial fibrillation Mother Other: Mother at age 92 cause unknown Stroke Mother Relation Name Status Comments Father Mother Social History Tobacco Use Types Packs/Day Years Used Date Smoking Tobacco: Former Cigarettes Q uit: 04/07/1979 Smokeless Tobacco: Never Alcohol Use Standard Drinks/Week Comments No 0 (1 standard drink = 0.6 oz pur e alcohol) Comments Unknown Sex and Gender Information Value Date Recorded Sex Assigned at Not on file Legal Sex Female 12:09 AM EST Gender Identity Not on file Sexual Orientation Not on file Obstetrics History Last Filed Vital Signs Vital Sign Reading Time Taken Comments Blood Pressure 124/79 02/17/2024 10:01 AM EDT Pulse 65 02/17/2024 10:01 AM EDT Temperature - - Respiratory Rate - - Oxygen Saturation - - Inhaled Oxygen Concentration - - Weight 80.3 kg (177 lb) 03/25/2024 5:42 PM EDT Height 172.7 cm (5' 8 ) 03/25/2024 5:42 PM EDT Body Mass Index 26.91 03/25/2024 5:42 PM EDT Plan of Treatment Health Maintenance Due Date Last Done Comments Breast Cancer Screening 1950 Pneumococcal Vaccine: 50+ Years (1 of 1 - PCV) 2002 Zoster Vaccines (1 of 2) 2002 COVID-19 Vaccine (3 - Pfizer risk series) 09/26/2020 08/29/2020, 08/08/2020 Colorectal Cancer Screening: Colonoscopy 05/02/2022 Depression Screening 05/02/2022 Falls Risk Assessment 05/02/2022 Hepatitis C Screening 05/02/2022 Social Influencers of Health Screening 05/02/2022 Hypertension/CHF/CAD Annual BMP Blood Test 05/05/2022 Influenza Vaccine (#1) 2024 RSV Immunization Patients 60 + Years Old (1 - 1-dose 75+ series) 2027 Cholesterol Screening (Lipid Panel) 10/27/2028 10/28/2023 DTaP,Tdap,and Td Vaccines (3 - Td or Tdap) 11/21/2028 11/21/2018, 04/14/2012 Osteoporosis Screening (Bone Density Screening) 03/19/2032 03/19/2022 HIB Vaccines Aged Out No longer eligi ble based on patient's age to complete this topic HPV Vaccines Aged Out No longer eligi ble based on patient's age to complete this topic Hepatitis A Vaccines Aged Out No long er eligible based on patient's age to complete this topic Hepatitis B Vaccines Aged Out No long er eligible based on patient's age to complete this topic IPV Vaccines Aged Out No longer eligi ble based on patient's age to complete this topic MMR Vaccines Aged Out No longer eligi ble based on patient's age to complete this topic Meningococcal ACWY Vaccine Aged Out N o longer eligible based on patient's age to complete this topic Meningococcal B Vacine Aged Out No lo nger eligible based on patient's age to complete this topic RSV Immunization Patients Under 20 months Aged Out No longer eligible b ased on patient's age to complete this topic Varicella Vaccines Aged Out No longer eligible based on patient's age to complete this topic Procedures Procedure Name Priority Date/Time Associated Diagnosis Comments BONE DENSITY STUDY Routine 03/19/2022 10 :44 AM EDT Encounter for screening for osteoporosis Asymptomatic menopausal state Other specified disorders of bone density and structure, unspecified site Menopausal and female climacteric states from Last 3 Months or Most Recently Relevant to Health Maintenance Results * BONE DENSITY STUDY (03/19/2022 10:44 AM EDT) Anatomical Region Laterality Modality Bone Densitometr y 03/08/2022 3:39 PM EDT Narrative 03/19/2022 11:18 AM EDT Bone density study Indication and risk factors: Postmenopausal female. ??Screening for osteoporosis. ??No priors. Study acquired on a [employer] densitometer. Imaging of the lumbar spine and hip was completed. FINDINGS: Averaged L1 through L4: Bone density: 0.97 g/cm2 Z score: -0.6 T score: -1.7 Left total hip: Bone density: 0.81 g/cm2 Z score: -0.5 T score: -1.6 CONCLUSION: 1. ??Osteopenia of the lumbar spine and left hip. FRAX 10 year probability of fracture, when taking into consideration the patient's personal risk factors: There is a 11% chance of a major osteoporotic fracture and a 1% chance of a hip fracture. SESSION: Not applicable World Health Organization Definitions of Osteoporosis: T score -0.9 and above: Normal BMD T score between -1.0 and -2.4: Low BMD (Osteopenia) T score -2.5 and below: Osteoporosis Report reviewed and signed by : Dr. Amie العراقي on 03/19/2022 11:18 AM. Workstation Name - LIV Procedure Note Amie العراقي MD - 05/17/2022 Bone density study Indication and risk factors: Postmenopausal female. Screening forosteoporosis. No priors. Study acquired on a [employer] densitometer. Imaging of thelumbar spine and hip was completed. FINDINGS: Averaged L1 through L4: Bone density: 0.97 g/cm2 Z score: -0.6 T score: -1.7 Left total hip: Bone density: 0.81 g/cm2 Z score: -0.5 T score: -1.6 CONCLUSION: 1. Osteopenia of the lumbar spine and left hip. FRAX 10 year probability of fracture, when taking into consideration thepatient's personal risk factors: There is a 11% chance of a majorosteoporotic fracture and a 1% chance of a hip fracture. SESSION: Not applicable World Health Organization Definitions of Osteoporosis: T score -0.9 and above: Normal BMD T score between -1.0 and -2.4: Low BMD (Osteopenia) T score -2.5 and below: Osteoporosis Report reviewed and signed by : Dr. Amie العراقي on 03/19/2022 11:18 AM.Workstation Name - [facility] C Gautam Mcconnell MD IMG DXA PROCEDURES Final Re sult from Last 3 Months or Most Recently Relevant to Health Maintenance Care Teams Adaptive Physical Educator Relationship Specialty Start Date End Date Doreen Avalos PA PCP - General Physician Computer Customer Support Specialist 11/22/14
--- OUTSIDE RECORDS SUMMARY | 2024-07-30 12:20 | XMS_ITS | Clinical Summary ---
Author Organization [facility] Address [address] [place] [address] Care Team Providers Care Groundskeeper Name Role Phone Kade Cummings MD Primary Care Provider [phone] Allergies Active Allergy Reactions Criticality Noted Date Comments Erythromycin Unknown/Patient and Family Unable to Define Medium 07/22/2019 Lisinopril Cough Low 07/22/2019 Medications Medication Sig Dispensed Refills Start Date End Date Status brimonidine (Alphagan P) 0.1 % Solution Administer 1 drop to both eyes 2 (two) times a day. 10/06/2018 Active diltiazem (CARDIZEM CD) 180 MG 24 hr capsule Take 1 capsule by mouth daily. 09/28/2018 Active folic acid (FOLVITE) 1 MG tablet Take 1 mg by mouth daily. Active losartan (COZAAR) 50 MG tablet Take 1 tablet by mouth daily. 02/01/2019 Active methotrexate (RHEUMATREX) 2.5 MG tablet Take 20 mg by mouth once a week Active denosumab (PROLIA) 60 mg/mL Solution Prefilled Syringe subcutaneous injection Inject 60 mg under the skin every 6 (six) months. Administer in the upper arm, upper thigh, or abdomen. Active naproxen (NAPROSYN) 500 MG tablet Take 500 mg by mouth 2 times daily (every 12 hours) as needed for mild pain. Take with meals or food to reduce stomach upset. Active Social History Tobacco Use Types Packs/Day Years [...] on file Sexual Orientation Not on file Last Filed Vital Signs Vital Sign Reading Time Taken Comments Blood Pressure 130/56 07/23/2019 4:30 PM EST Pulse 74 07/23/2019 4:30 PM EST Temperature 37.3 ??C (99.1 ??F) 07/23/2019 3:30 PM ES T Respiratory Rate 12 07/23/2019 4:30 PM EST Oxygen Saturation 99% 07/23/2019 4:30 PM EST Inhaled Oxygen Concentration - - Weight - - Height - - Body Mass Index - - Plan of Treatment Health Maintenance Due Date Last Done Comments Hepatitis C Virus Screening 1952 COVID-19 Vaccine (#1) 1957 DTaP/Tdap/Td Vaccines (1 - Tdap) 1971 Pneumococcal Vaccines 50+ (1 of 2 - PCV) 1971 Zoster (Shingles) Vaccine (1 of 2) 1971 Mammogram 1992 Colonoscopy 1997 RSV Vaccine 60 years and old er and Patients (1 - Risk 60-74 years 1-dose series) 2012 DXA Bone Density (Females,Ag es 65 and older) 2017 Influenza Vaccine 12/25/2023 Hepatitis B Vaccines Aged Out No long er eligible based on patient's age to complete this topic Medical Devices Implanted Type Area Biofuels Production Associate Device Identifier Shelf Expiration Date Model / Serial / Lot Lens Iol 0 D +16 Loco Mod L Bcnvx 13mm 6mm Posterior Chamber - [id number] Implanted:Qty: 1 on 04/30/2017 by Ricardo Villarreal MD at [facility] [place], [place] [employer] [id number].160 / [id number] / Lens Iol 0 D +15.5 Loco Mod L Bcnvx 13mm 6mm Posterior - [id number] Implanted:Qty: 1 on 05/28/2017 by Ricardo Villarreal MD at [facility] [place], [place] [employer] [id number].155 / [id number] / Advance Directives * Full Code (Latest Code Status on File) Date Activated Date Inactivated Comments 07/23/2019 12:50 PM Care Teams Groundskeeper Relationship Specialty Start Date End Date Kade Cummings MD [address] [place] [id number] PCP - General Internal Medicine 04/25/17
== END 2024-07-30 11:43 | disposition home or self-care (01) ==
PROVIDERS: PCP Physician Assistant Medical; Referring Provider Internal Medicine Rheumatology; Visit Provider Nurse Practitioner Family
DX: M51.369 Other intervertebral disc degeneration, lumbar region without mention of lumbar back pain or lower extremity pain (principal); M48.061 Spinal stenosis, lumbar region without neurogenic claudication; M54.16 Radiculopathy, lumbar region; M54.50 Low back pain, unspecified; M43.16 Spondylolisthesis, lumbar region; M54.9 Dorsalgia, unspecified; M46.1 Sacroiliitis, not elsewhere classified
CPT/HCPCS: 99204; G2211

== ENCOUNTER → 2024-07-30 12:04 | Outpatient (BNV) | payer MEDICARE, SELFPAY | PROVIDERS: PCP Physician Assistant Medical; Referring Provider Internal Medicine Rheumatology; Visit Provider Radiology Diagnostic Radiology | DX: M47.817 Spondylosis without myelopathy or radiculopathy, lumbosacral region (principal); M43.16 Spondylolisthesis, lumbar region; M47.9 Spondylosis, unspecified | CPT/HCPCS: 72072; 72110 ==

== ENCOUNTER 2024-08-13 10:21 | Outpatient (AMB) | payer MEDICARE, SELFPAY ==
--- NOTE | 2024-08-13 10:24 | HO.SPINEOV ---
Vital Signs 08/13/24 10:28 Height 5 ft 8 in Weight 183 lb BMI 27.8 Intake Visit Reasons: spinal stenosis, lumbar region Intake Note: Ms. Emerson is here today c/o Low back pain. Senior Manufacturing Test Engineer Required: No Allergies erythromycin base Allergy (Unknown, Verified 08/13/24 10:29) Unknown lisinopril Allergy (Unknown, Verified 08/13/24 10:29) cough Physical Exam Vital Signs: BMI result Body Mass Index 27.8 Assessment & Plan Assessment & Plan (1) Spondylolisthesis of lumbar region: Code(s): M43.16 - Spondylolisthesis, lumbar region Category: Medical (2) Spinal stenosis of lumbar region with radiculopathy: Code(s): M48.061 - Spinal stenosis, lumbar region without neurogenic claudication; M54.16 - Radiculopathy, lumbar region Category: Medical Plan Dear colleague Thank you for referring Isabel Emerson to the office today with a chief complaint of low back pain. HPI: This 74-year-old female developed back pain when she was in her 30s. Fast for walking in her 50s she was doing exercise on a regular basis and her back pain was well controlled. In her 60s she lost the appetite to do exercises. She then developed bilateral sciatica that would alternate with walking and standing. The symptoms became so bad that she decided to give up walking. She was giving shoe inserts which gave her tremendous relief and currently she is able to walk for several miles and can stand for approximately 30 minutes before she has to sit down. Her main concern today is a left-sided pain in the mid lumbar region that comes when she twists in his certain position. She was seen by a integrated logistics programs director who recommended an injection. She was evaluated by our pain management team who did not recommend any form of injections and referred her to me for surgical opinion. PMH: Hypertension, rheumatoid arthritis Medications: Methotrexate, folic acid, naproxen, rosuvastatin, losartan, diltiazem Allergies: Erythromycin and lisinopril Social history: . Nonsmoker Physical Exam: Pleasant female. She is able to get out of chair without difficulties. She stands in a flexed position and is deviated towards the right side. She states that she is deviating towards the right side to avoid the sudden pain that can come with twisting. Neurological exam is intact for motor sensation and reflexes Radiological Studies: MRI of the lumbar spine shows a grade 1 anterolisthesis L4-5 with associated severe L4-5 spinal stenosis and bilateral facet arthropathy. A standing x-ray of the lumbar spine confirms an 8 mm slip at L4-5. Impression/Plan: This patient was initially suffering from neurogenic claudication due to the L4-5 spondylolisthesis and associated spinal stenosis. Fortunately, shoe inserts gave her tremendous relief of her symptoms. The left-sided intermittent back pain in my opinion is also related to the L4-5 level. Her symptoms are not severe enough to offer surgery to address his symptoms. She is in full agreement. She is also not a candidate for injections. She will return to my office if an increase in symptoms occur. Thank you for allowing me to participate in your patients care. total time spent was 50 minutes in counseling ,coordination of plan, personal review of imaging, surgical decision making and subsequent plan Misbah Cuellar MD, PhD Spine Fellowship Trained Neurosurgeon Director, [facility] Coding Level of Care Code New Pt Level 4 (04279) Diagnoses Spondylolisthesis of lumbar region M43.16 Spinal stenosis of lumbar region with radiculopathy M48.061; M54.16
[2024-08-13 10:28] VITALS: BMI 27.8
--- OUTSIDE RECORDS SUMMARY | 2024-08-13 12:25 | XMS_ITS | Encounter Summary ---
Author Organization [facility] Address [address] [place] [address] Care Team Providers Care After School Counselor Name Role Phone Kade Cummings MD Primary Care Provider Encounter Details Date Type Department Care Team ([facility] st Contact Info) Description 07/22/2019 Prep for Surgery OPHTHALMOLOGY [address] [place] [address] Triston Fulton MD [address] [facility] [address] [place] [address] Social History Tobacco Use Types Packs/Day Years [...] on filedocumented in this encounter Care Teams After School Counselor Relationship Specialty Start Date End Date Kade Cummings MD [address] [place] [address] PCP - General Internal Medicine 04/25/17 documented as of this encounter
--- OUTSIDE RECORDS SUMMARY | 2024-08-13 12:25 | XMS_ITS | Clinical Summary ---
Author Organization [facility] Address [address] [place] [address] Care Team Providers Care Title Abstractor Name Role Phone Kade Cummings MD Primary Care Provider [phone] Allergies Active Allergy Reactions Criticality Noted Date [...] this topic Medical Devices Implanted Type Area Assistant Manager Pt Device Identifier Shelf Expiration Date Model / Serial / Lot Lens Iol 0 D +16 Loco Mod L Bcnvx 13mm 6mm Posterior Chamber - [id number] Implanted:Qty: 1 on 04/30/2017 by Ricardo Villarreal MD at [facility] [place], [place] [employer] [id number].160 / [id number] / Lens Iol 0 D +15.5 Loco Mod L Bcnvx 13mm 6mm Posterior - [id number] Implanted:Qty: 1 on 05/28/2017 by Ricardo Villarreal MD at [facility] [place], [place] [employer] [id number].155 / [id number] / Advance Directives * Full Code (Latest Code Status on File) Date Activated Date Inactivated Comments 07/23/2019 12:50 PM Care Teams Title Abstractor Relationship Specialty Start Date End Date Kade Cummings MD [address] [place] [id number] PCP - General Internal Medicine 04/25/17
--- OUTSIDE RECORDS SUMMARY | 2024-08-13 12:25 | XMS_ITS | Clinical Summary ---
Author Organization [facility] Address [address] [place] [address] Care Team Providers Care Smoke Eater Name Role Phone Doreen Avaols PA-C Primary Care Provider [phone] Allergies Active Allergy Reactions Criticality Noted Date [...] Covid-19 (Pfizer) Dilution Required 08/29/2020,0 08/08/2020 Td ([facility]) 04/14/2012 Family History Medical History Relation Name [...] on patient's age to complete this topic Care Teams Smoke Eater Relationship Specialty Start Date End Date Doreen Avalos PA-C PCP - General Physician Therapist Rrt 11/22/14
--- OUTSIDE RECORDS SUMMARY | 2024-08-13 12:25 | XMS_ITS | Clinical Summary ---
Author Organization [facility] Address [address] [place] [address] Care Team Providers Care [employer] Task [employer] Planners Name Role Phone Doreen Avalos Primary Care Provider [phone] Surgical History Surgery Date Site/Laterality Comments KNEE [...] osteoporosis. ??No priors. Study acquired on a [employer] densitometer. Imaging of the lumbar spine and [...] forosteoporosis. No priors. Study acquired on a [employer] densitometer. Imaging of thelumbar spine and [...] Recently Relevant to Health Maintenance Care Teams [employer] Planners Relationship Specialty Start Date End Date Doreen Avalos PA PCP - General Physician [place] Machine Operator 11/22/14
--- OUTSIDE RECORDS SUMMARY | 2024-08-13 12:25 | XMS_ITS | Data Portability ---
Author Organization [place] - [facility], autoContract - [facility] [employer] [facility] Address [address] [place] [address] Assessment Encounter Date Assessment Date Assessment LastModified [...] week if not improving (or as above) [email or web address] Not available 04/09/2024 15:18:07 05/13/2024 05/13/2024 Patient [...] levels Venous insufficiency Plan in place with [facility] vein center Spinal stenosis Plan in place [...] None recorded . Lab CBC 024 05/15/20 [facility], [address], [place], [address], 4 19:50:25 iron + TIBC + ferritin , serum 024 05/15/20 [facility], [address], [place], [address], 4 19:50:24 CMP, serum or plasma 024 05/15/20 [facility], [address], [place], [address], 4 19:50:26 HbA1c (hemoglo bin A1c), blood 024 05/15/20 [facility], [address], [place], [address], 4 19:50:25 lipid panel, serum 024 05/15/20 [facility], [address], [place], [address], 19:50:26 Referral None recorded . Procedures None recorded . Surgeries None recorded . Imaging None recorded . Medication Orders None recorded . Patient TargetsNo targets recorded. Patient InstructionsNo instructions recorded. Reason for Referral None Reported. Results Created Date Observation Date Name Description Value Unit Range Abnormal Flag Note LastModifiedBy Organization Detail LastModifiedTime 03/25/20 24 03/25/[address] scan of the head witho ut contr ast: histo ry: 73-ye ar-ol d femal e with head strik e/ hendricks ?head traum a apex skull - hendricks techn ique: helic al CT scann ing of the head was perfo rmed witho ut contr ast admin istra tion. ?high resol ution refor matte d image s were produ alannah.C T conrad cols utili zed aec (auto matic expos ure contr ol) and MA modul ation with auto/ start [place] for low-d ose conrad col. kaitlynn rison : ?no prior studi es are avail able for kaitlynn rison . findi ngs: there IS mild periv entri cular white matte r lucen cy, stati stica lly most likel y the basis of micro vascu lar ische theodore. ?the most promi nent areas in the left front al periv entri cular white matte r IS kaitlynn tible with an old infar ction . the crani um IS intac t. the masto id air cells and visua lized paran rosa maria sinus es are well pneum atize d. there IS no evide nce of acute intra crani al infar ction , hemor rhage or mass detec hill. impre ssion : seque lae of micro vascu lar ische raghu disea se. there IS no evide nce of intra crani al hemor rhage , acute infar ction or mass detec hill. repor t revie wed and judy d by : dr. pilar gibbs on 03/25 6:21 pm. works deb n name - [facility] [email or web address] Not Available Not Available 08/03/2024 03:59:58 03/25/20 24 03/25/2024 lab resul t pxn pilar peterson md - 03/25 Not Available Not Available 08/03/2024 03:59:58 05/06/20 24 05/07/2024 PTH, INTAC T (ICMA [...] or Low Terti anthony High High Non-P yadny yroid Hyper calce theodore Low or Low Lorena l High Not Available [facility] [address], [address], 05/07/2024 14:52:34 05/06/20 24 05/07/2024 PTH, INTAC T (ICMA ) AND IONIZ ED CALCI UM calcium 8.5 mg/dL 8.6-10 .4 low Not Available [facility] [address], [address], 05/07/2024 14:52:34 05/06/20 24 05/07/2024 PTH, INTAC T (ICMA ) AND IONIZ ED CALCI UM calcium, ionized 4.8 mg/dL 4.7-5. 5 normal Not Available [facility] [address], [address], 05/07/2024 14:52:34 05/06/20 24 05/07/2024 LIPID PANEL WITH REFLE X TO DIREC T LDL cholesterol, total 174 mg/dL <200 normal Not Available [facility] [address], [place], [address], 05/07/2024 14:52:35 05/06/20 24 05/07/2024 LIPID PANEL WITH REFLE X TO DIREC T LDL HDL cholesterol 80 mg/dL > or = 50 normal Not Available [facility] [place] [facility] [address], [place], [address], 05/07/2024 14:52:35 05/06/20 24 05/07/2024 LIPID PANEL WITH REFLE X TO DIREC T LDL triglyceride s 72 mg/dL <150 normal Not Available [facility] [place] [facility] [address], [place], [address], 05/07/2024 14:52:35 05/06/20 24 05/07/2024 LIPID PANEL [...] n, which is a valid ated novel maryo linda rodriguezte r accur acy than the Fried balaji equat ion in the estim ation of LDL-C . Emily CISNEROS et al. MELBA. 2013; 310(1 9): 2061- 2068 (http ://ed ucati on.Qu Rowena obrienKids Movies. com/f aq/FA Q164) Not Available [facility] [place] [facility] [address], [place], [address], 05/07/2024 14:52:35 05/06/20 24 05/07/2024 LIPID PANEL WITH REFLE X TO DIREC T LDL chol/HDLC ratio 2.2 (calc ) <5.0 normal Not Available [facility] [place] [facility] [address], [place], [address], 05/07/2024 14:52:35 05/06/20 24 05/07/2024 LIPID PANEL WITH REFLE X TO DIREC T LDL non HDL cholesterol 94 mg/dL _(charles c) <130 normal For patie nts with diabe romeo plus 1 major ASCVD risk facto r, treat ing to a non-H DL-C goal of <100 mg/dL (LDL- C of <70 mg/dL ) is consi dered a thera peuti c optio n. Not Available [facility] [address], [place], [address], 05/07/2024 14:52:35 05/06/20 24 05/07/2024 IRON AND TOTAL IRON SHELLY NG CAPAC ITY iron, total 90 mcg/d L 45-160 normal Not Available [facility] [address], [place], [address], 05/07/2024 14:52:35 05/06/20 24 05/07/2024 IRON AND TOTAL IRON SHELLY NG CAPAC ITY iron binding capacity 319 mcg/d L_(ca lc) 250-45 0 normal Not Available [facility] [address], [place], [address], 05/07/2024 14:52:35 05/06/20 24 05/07/2024 IRON AND TOTAL IRON SHELLY NG CAPAC ITY % saturation 28 %_(ca lc) 16-45 normal Not Available [facility] [address], [address], 05/07/2024 14:52:35 05/06/20 24 05/07/2024 COMPR EHENS NOMI METAB OLIC PANEL glucose 105 mg/dL 65-99 high Fasti ng refer ence inter ceasar For someo ne witho ut known diabe romeo, a gluco se value betwe en 100 and 125 mg/dL is consi stent with predi abete s and shoul d be confi rmed with a follo w-up test. Not Available [facility] [address], [place], [address], 05/07/2024 14:52:36 05/06/20 24 05/07/2024 COMPR EHENS NOMI METAB OLIC PANEL urea nitrogen (BUN) 15 mg/dL 7-25 normal Not Available [facility] [address], [place], [address], 05/07/2024 14:52:36 05/06/20 24 05/07/2024 COMPR EHENS NOMI METAB OLIC PANEL creatinine 0.70 mg/dL 0.60-1 .00 normal Not Available [facility] [address], [place], [address], 05/07/2024 14:52:36 05/06/20 24 05/07/2024 COMPR EHENS NOMI METAB OLIC PANEL eGFR 92 mL/mi n/1.7 3m2 > or = 60 normal Not Available [facility] [address], [place], [address], 05/07/2024 14:52:36 05/06/20 24 05/07/2024 COMPR EHENS NOMI METAB OLIC PANEL BUN/creatini ne ratio SEE NOTE: (calc ) 6-22 Not Repor hill: BUN and Creat inine are withi n refer ence range . Not Available [facility] [address], [place], [address], 05/07/2024 14:52:36 05/06/20 24 05/07/2024 COMPR EHENS NOMI METAB OLIC PANEL sodium 140 mmol/ L 135-14 6 normal Not Available [facility] [address], [place], [address], 05/07/2024 14:52:36 05/06/20 24 05/07/2024 COMPR EHENS NOMI METAB OLIC PANEL potassium 4.2 mmol/ L 3.5-5. 3 normal Not Available [facility] [address], [place], [address], 05/07/2024 14:52:36 05/06/20 24 05/07/2024 COMPR EHENS NOMI METAB OLIC PANEL chloride 106 mmol/ L 98-110 normal Not Available [facility] [address], [place], [address], 05/07/2024 14:52:36 05/06/20 24 05/07/2024 COMPR EHENS NOMI METAB OLIC PANEL carbon dioxide 26 mmol/ L 20-32 normal Not Available [facility] [address], [place], [address], 05/07/2024 14:52:36 05/06/20 24 05/07/2024 COMPR EHENS NOMI METAB OLIC PANEL calcium 8.5 mg/dL 8.6-10 .4 low Not Available [facility] [address], [place], [address], 05/07/2024 14:52:36 05/06/20 24 05/07/2024 COMPR EHENS NOMI METAB OLIC PANEL protein, total 7.0 g/dL 6.1-8. 1 normal Not Available [facility] [address], [place], [address], 05/07/2024 14:52:36 05/06/20 24 05/07/2024 COMPR EHENS NOMI METAB OLIC PANEL albumin 3.9 g/dL 3.6-5. 1 normal Not Available [facility] [address], [place], [address], 05/07/2024 14:52:36 05/06/20 24 05/07/2024 COMPR EHENS NOMI METAB OLIC PANEL globulin 3.1 g/dL_ (calc ) 1.9-3. 7 normal Not Available [facility] [address], [place], [address], 05/07/2024 14:52:36 05/06/20 24 05/07/2024 COMPR EHENS NOMI METAB OLIC PANEL albumin/glob ulin ratio 1.3 (calc ) 1.0-2. 5 normal Not Available [facility] [address], [place], [address], 05/07/2024 14:52:36 05/06/20 24 05/07/2024 COMPR EHENS NOMI METAB OLIC PANEL bilirubin, total 0.6 mg/dL 0.2-1. 2 normal Not Available [facility] [address], [place], [address], 05/07/2024 14:52:36 05/06/20 24 05/07/2024 COMPR EHENS NOMI METAB OLIC PANEL alkaline phosphatase 72 U/L 37-153 normal Not Available [facility] [address], [place], [address], 05/07/2024 14:52:36 05/06/20 24 05/07/2024 COMPR EHENS NOMI METAB OLIC PANEL AST 20 U/L 10-35 normal Not Available [facility] [address], [place], [address], 05/07/2024 14:52:36 05/06/20 24 05/07/2024 COMPR EHENS NOMI METAB OLIC PANEL ALT 25 U/L 6-29 normal Not Available [facility] [address] [place], [address], 05/07/2024 14:52:36 05/06/20 24 05/07/2024 CBC (INCL UDES DIFF/ PLT) white blood cell count 5.6 thous and/u L 3.8-10 .8 normal Not Available [facility] [place] [facility] [address], [place], [address], 05/07/2024 14:52:36 05/06/20 24 05/07/2024 CBC (INCL UDES DIFF/ PLT) red blood cell count 4.27 ashok on/uL 3.80-5 .10 normal Not Available [facility] [place] [facility] [address], [place], [address], 05/07/2024 14:52:36 05/06/20 24 05/07/2024 CBC (INCL UDES DIFF/ PLT) hemoglobin 13.4 g/dL 11.7-1 5.5 normal Not Available [facility] [place] [facility] [address], [place], [address], 05/07/2024 14:52:36 05/06/20 24 05/07/2024 CBC (INCL UDES DIFF/ PLT) hematocrit 40.5 % 35.0-4 5.0 normal Not Available [facility] [place] [facility] [address], [place], [address], 05/07/2024 14:52:36 05/06/20 24 05/07/2024 CBC (INCL UDES DIFF/ PLT) MCV 94.8 fL 80.0-1 00.0 normal Not Available [facility] [place] [facility] [address], [place], [address], 05/07/2024 14:52:36 05/06/20 24 05/07/2024 CBC (INCL UDES DIFF/ PLT) MCH 31.4 pg 27.0-3 3.0 normal Not Available [facility] [place] [facility] [address], [place], [address], 05/07/2024 14:52:36 05/06/20 24 05/07/2024 CBC (INCL UDES DIFF/ PLT) MCHC 33.1 g/dL 32.0-3 6.0 normal For adult s, a sligh t decre ase in the calcu lated MCHC value (in the range of 30 to 32 g/dL) is most likel y not clini maikol signi fican t; howev er, it shoul d be inter prete d with cauti on in corre lat n with other red cell tj eters and the patie nt's clini charles condi tion. Not Available [facility] [place] [facility] [address], [place], [address], 05/07/2024 14:52:36 05/06/20 24 05/07/2024 CBC (INCL UDES DIFF/ PLT) RDW 14.1 % 11.0-1 5.0 normal Not Available [facility] [place] [facility] [address], [place], [address], 05/07/2024 14:52:36 05/06/20 24 05/07/2024 CBC (INCL UDES DIFF/ PLT) platelet count 275 thous and/u L 140-40 0 normal Not Available [facility] [place] [facility] [address], [place], [address], 05/07/2024 14:52:36 05/06/20 24 05/07/2024 CBC (INCL UDES DIFF/ PLT) MPV 10.3 fL 7.5-12 .5 normal Not Available [facility] [place] [facility] [address], [place], [address], 05/07/2024 14:52:36 05/06/20 24 05/07/2024 CBC (INCL UDES DIFF/ PLT) absolute neutrophils 3662 cells /uL 1500-7 800 normal Not Available [facility] [place] [facility] [address], [place], [address], 05/07/2024 14:52:36 05/06/20 24 05/07/2024 CBC (INCL UDES DIFF/ PLT) absolute lymphocytes 1019 cells /uL 850-39 00 normal Not Available [facility] [place] [facility] [address], [place], [address], 05/07/2024 14:52:36 05/06/20 24 05/07/2024 CBC (INCL UDES DIFF/ PLT) absolute monocytes 538 cells /uL 200-95 0 normal Not Available [facility] [place] [facility] [address], [place], [address], 05/07/2024 14:52:36 05/06/20 24 05/07/2024 CBC (INCL UDES DIFF/ PLT) absolute eosinophils 330 cells /uL 15-500 normal Not Available [facility] [place] [facility] [address], [place], [address], 05/07/2024 14:52:36 05/06/20 24 05/07/2024 CBC (INCL UDES DIFF/ PLT) absolute basophils 50 cells /uL 0-200 normal Not Available [facility] [place] [facility] [address], [place], [address], 05/07/2024 14:52:36 05/06/20 24 05/07/2024 CBC (INCL UDES DIFF/ PLT) neutrophils 65.4 % normal Not Available [facility] [place] [facility] [address], [place], [address], 05/07/2024 14:52:36 05/06/20 24 05/07/2024 CBC (INCL UDES DIFF/ PLT) lymphocytes 18.2 % normal Not Available [facility] [place] [facility] [address], [place], [address], 05/07/2024 14:52:36 05/06/20 24 05/07/2024 CBC (INCL UDES DIFF/ PLT) monocytes 9.6 % normal Not Available [facility] [place] [facility] [address], [place], [address], 05/07/2024 14:52:36 05/06/20 24 05/07/2024 CBC (INCL UDES DIFF/ PLT) eosinophils 5.9 % normal Not Available [facility] [place] [facility] [address], [place], [address], 05/07/2024 14:52:36 05/06/20 24 05/07/2024 CBC (INCL UDES DIFF/ PLT) basophils 0.9 % normal Not Available [facility] [address], [place], [address], 05/07/2024 14:52:36 05/06/20 24 05/07/2024 GLADYS TIN ferritin 72 NG/mL 16-288 normal Not Available [facility] [address], [place], [address], 05/07/2024 14:52:37 05/06/20 24 05/07/2024 VITAM IN D,25- OH,TO MIGUEL,I A vitamin D,25-oh,tota l,ia 36 NG/mL 30-100 normal Vitam in D Statu s 25-OH Vitam in D: Defic iency : <20 ng/mL Insuf ficie ncy: 20 - 29 ng/mL Optim al: > or = 30 ng/mL For 25-OH Vitam in D testi ng on patie nts on D2-peerira pplem entat ion and patie nts for whom quant itati on of D2 and D3 fract ions is requi red, the [facility] e[facility](TM ) 25-OH VIT D, (D2,D 3), LC/MS /MS is recom leann d: order code 87600 (amena ents >2yrs ). See Note 1 Note 1 For addit ional infor bassam de la cruz refer to http: //donis Burgos stDia gnost ics.c om/fa q/FAQ 199 (This link is being provi ded for infor abby quezada/ educa gema l purpo ses only. ) Not Available [facility] [place] [facility] [address], [place], [address], 05/07/2024 14:52:37 05/06/2005/07/2024 HEMOG LOBIN A1C WITH MPG hemoglobin A1C [...] for child angel. Not Available [facility] [place] [facility] [address], [place], [address], 05/07/2024 14:52:38 05/06/2005/07/2024 HEMOG LOBIN A1C WITH MPG mean plasma glucose 126 mg/dL _(charles c) Not Available [facility] [place] [facility] [address], [place], [address], 05/07/2024 14:52:38 05/04/20 24 05/03/2024 MRI, lumba r spine , w/o contr ast No observ ation record ed. [email or web address] [facility] [address] [facility] [address], [place], [address], 05/09/2024 20:11:43 08/03/19 25 07/30/2024 XR, thora cic spine No observ ation record ed. [email or web address] [facility] [address] [facility], [place], [address], 08/08/2024 13:56:57 08/03/19 25 07/30/2024 XR, lumbo sacra l spine , 2 or 3 view No observ ation record ed. [email or web address] [facility] [address] [place] [address], [address], 08/08/2024 13:57:26 Result Notes None recorded. Problems Name Problem SNOMED Code Status Onset Date Resolution Date Notes Provider Name and Address Organization Details Recorded Time History of procedure 921642173 Active 2017 Echo Normal 08/29/17; PCR1Itepl iption: History of echocardi ogram; JUR98Song ription: History of echocardi ogram; dlname: Billie; dfname: Rita; Physician _Suffix: ENMA; Physician _Phone: tel:[phone]; Physician _Fax: fax:[phone]; Physician _Addr1: [address] [place] [address]; Physician _Addr2: [facility] 6; Physician _City: [place]; Physician _State: [place]; Physician _PostalCo de: [id number]; Not Available [facility] 5 11:24:16 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 59064110139 428586 Active 2016 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/2015; SLG5Dxhsy iption: Neuropath y involving both lower extremiti es; JIP90Qopv ription: Neuropath y involving both lower extremiti es; NPI: [id number] 2; Not Available [facility] 5 11:24:16 Detachmen t of retina of left eye 08805213329 121165 Active 2019 Detached retina, left; KBL5Xaewh iption: Detached retina, left; JGD80Easd ription: Detached retina, left; NPI: [id number]; Not Available [facility] 5 11:24:16 History of arthrosco py of knee joint 271775978 Active 2016 H/O arthrosco py of right knee; MNZ9Cbcmk iption: H/O arthrosco py of right knee; MPH65Ifnf ription: H/O arthrosco py of right knee; NPI: [id number]; Not Available [facility] 5 11:24:16 Electromy ogram abnormal 211492255 Active 2017 EMG LE 08/02/15; OAD8Ufamg iption: Abnormal EMG; GIA65Inxi ription: Abnormal EMG; Not Available [facility] 5 11:24:16 Essential hypertens ion 12795718 Active 2016 Essential hypertens ion; XJF4Jowen iption: Essential hypertens ion; ZUJ26Gztz ription: Essential hypertens ion; NPI: [id number] 2; Not Available [facility] 5 11:24:17 Body mass index 25-29 - overweigh t 758864474 Active 2018 Overweigh t (BMI 25.0-29.9 ); CEE1Mppqz iption: Overweigh t (BMI 25.0-29.9 ); DXI37Mepc ription: Overweigh t (BMI 25.0-29.9 ); NPI: [id number] 2; Not Available [facility] 5 11:24:18 Chronic low back pain 193861620 Active 2018 Chronic bilateral low back pain with sciatica; OWA6Npntz iption: Chronic bilateral low back pain with sciatica; QMZ10Ckda ription: Chronic bilateral low back pain with sciatica; NPI: [id number] 2; Not Available [facility] 5 11:24:18 Degenerat ion of lumbar intervert ebral disc 43660752 Active 2019 Lumbar degenerat nomi disc disease; ZQU4Wwopi iption: Lumbar degenerat nomi disc disease; AXO92Rrhu ription: Lumbar degenerat nomi disc disease; dlname: Delia; dfname: Lo; dminit: Gym; Physician _Suffix: MD; Physician _Specialt y: Rehabilit ation Medicine; NPI: [id number] 9; Not Available [facility] 5 11:24:19 History of cardiovas cular disease 681319699 Active 2017 History of Raynaud's syndrome; TBZ1Zgbsi iption: History of Raynaud's syndrome; NMY00Blqb ription: History of Raynaud's syndrome; Not Available [facility] 5 11:24:19 Senile osteoporo sis 92535984 Active 2017 osteoporo sis BMD 09/16/2017 ; T -2.7 spine, T -2.1; WCO4Tcbxs iption: Age-relat ed osteoporo sis without current pathologi charles fracture; NUM42Lsxk ription: Age-relat ed osteoporo sis without current pathologi charles fracture; NPI: [id number] 2; Not Available [facility] 5 11:24:20 Glaucoma 66334199 Active 2022 Unspecifi ed glaucoma; YRB5Afyyb iption: Unspecifi ed glaucoma; DVF80Zcdv ription: Unspecifi ed glaucoma; NPI: [id number] 2; Not Available [facility] 5 11:24:21 Rheumatoi d arthritis of multiple joints 217581455 Active 2016 Rheumatoi d arthritis involving multiple sites with positive rheumatoi d factor; JGV4Jqjmy iption: Rheumatoi d arthritis involving multiple sites with positive rheumatoi d factor; AMT34Syyf ription: Rheumatoi d arthritis involving multiple sites with positive rheumatoi d factor; NPI: [id number] 2; Not Available [facility] 5 11:24:22 Lumbar radiculop athy 840454763 Active 2019 Lumbar radiculop athy; BFS4Bvztw iption: Lumbar radiculop athy; MSY69Jkkv ription: Lumbar radiculop athy; NPI: [id number] 9; Not Available [facility] 5 11:24:23 History of glaucoma 085205169 Active 2016 History of glaucoma; YDM8Iyvte iption: History of glaucoma; YNJ88Ypoy ription: History of glaucoma; NPI: [id number] 2; Not Available [facility] 5 11:24:23 Mixed hyperlipi demia 743285286 Active 2019 Mixed hyperlipi demia; SNE7Ckgtu iption: Mixed hyperlipi demia; ZGM92Vgxq ription: Mixed hyperlipi demia; NPI: [id number] 2; Not Available [facility] 5 11:24:23 Venous insuffici ency of leg 714465891 Active 2016 Venous insuffici ency of both lower extremiti es; DAD3Exujs iption: Venous insuffici ency of both lower extremiti es; URB79Oaxr ription: Venous insuffici ency of both lower extremiti es; NPI: [id number] 2; Not Available [facility] 5 11:24:23 Restless legs 35144528 Active 2023 [address], [place], [address] , [facility] 4 19:50:23 Spinal stenosis of lumbar region 20162105 Active 2023 [address], [place], [address] , [facility] 4 19:50:24 Periphera l venous insuffici ency 47198776 Active 2023 AN[address]TA [address], [place], [place], , [place] [facility] 4 19:50:27 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 480323918 Active 2023 AN[address], [place], [address] , [facility] 4 19:50:29 Osteoporo sis 57460857 Active 2023 AN[address]TA [address], [place], [address] , [place] [facility] 19:50:30 Impaired glucose tolerance 3561075 Active 2023 AN[address]TA [address], [place], [address] , [place] - [facility] 19:50:33 Rheumatoi d arthritis 68382149 Active 2023 [address]TA [address], [place], [address] , [place] - [facility] 19:52:06 Calcifica tion of coronary artery 545448837 Active 2023 [address]TA [address], [place], [address] , [place] [facility] 19:52:28 Problem Notes None recorded. Procedures Surgical History Date Name Laterality Status Provider Name and Address Organization Details Recorded Time Anesth knee joint procedure completed Not Available [facility] 08/03/2024 04:04:07 Anes delivery only completed Not Available [facility] 08/03/2024 04:04:07 Removal of tonsils completed Not Available [facility] 08/03/2024 04:04:07 Imaging Results Imaging Date Name Status LastModified by Organiz ation Details LastModified Time 05/03/2024 MRI, lumbar spine, w/o contrast completed [facility] [address] [place] [address], [place], [address], 05/09/2024 20:11:43 07/30/2024 XR, thoracic spine completed [email or web address] [address], [address], 08/08/2024 13:56:57 07/30/2024 XR, lumbosacral spine, 2 or 3 view completed [email or web address] [facility] [address] [place], [address], 08/08/2024 13:57:26 Procedure Notes None recorded. Medical Equipment None Reported. Allergies Allergen ID Allergen Name Allergen Category Reaction Reaction Severity Criticality Documentation Date Start Date Code Code System Note Provider Name and Address Organization Details Recorded Time 1166 erythromy rico medicatio n Not available Not available Not available 04/09/2024 4053 RxNorm Rita Billie null, [facility] 4 14:22:49 1167 lisinopri l medicatio n Not available Not available Not available 04/09/2024 24542 RxNorm Rita Billie null, [facility] 4 14:23:03 Medications Name Sig Start Date [...] daily. 2023 active dfname: Syd kirkland; dlname: César Physicia n_Addr1: [address] [facility]; Physicia n_Addr2: [facility]; Physicia n_City: [place] ; Physicia n_State: [place]; Physicia n_Postal Code: [id number]; NPI: [id number]; Physicia n_Suffix : PA-C; Physicia n_Phone: tel:[phone]; Physicia n_Fax: fax:[phone]; Physicia n_Specia lty: Insolvency Practitioner ; Not Available Not Available Not Available diltiazem CD 180 mg capsule,e xtended release 24 hr active Not Available Not Available Not Available chlorthal idone 25 mg tablet 04/09 completed Not Available Not Available Not Available methotrex ate sodium 2.5 mg tablet Take 10 tablets (25 mg total) by mouth once a week. active dfname: Joanne al; dlname: Provider ; Physicia n_Addr1: [address]; Emasimone n_City: [place]; Jessica n_State: [place]; Jessica n_Postal Code: [id number]; NPI: [id number]; Jessica n_Suffix : KATHERIN ahn_Phone: tel:[phone]; Not Available Not Available Not Available nystatin- triamcino lone 100,000 unit/g-0. 1 % topical cream Apply topicall y 2 (two) times a day. 05/13 completed Not Available Not Available Not Available folic acid 1 mg tablet Take 1 tablet (1 mg total) by mouth 4 (four) times a week. active NPI: [id number]; Not Available Not Available Not Available [...] total) under the skin once. active NPI: [id number]; Not Available Not Available Not Available Vyzulta 0.024 % eye drops active Not Available Not Available No t Available Vitals Date Recorded Body weight Heart rate Systolic blood pressure Diastolic blood pressure Provider Name and Address Organization Details Last Updated DateTime 04/09/2024 27496.29 g 63 /min 122 mm[Hg] 75 mm[Hg] Rita [facility] 04/09/2024 14:25:41 Social History Question Answer Notes LastModified by Organizat ion Details LastModified Time Tobacco Smoking Status Current Every Day Smoker Not Available [facility] 08/03/2024 04:02:59 What Is Your Level Of Alcohol Consumption? None [email or web address] Information not available 08/03/2024 Sex: Unknown Functional Status None recorded. Mental Status None recorded. Family History Relationship Description Onset Age of this Age Resolved Age Notes LastModified by Organization Details LastModified Time Father Problem No Sig Med Hx; Member s: Father Not available 08/03/2024 04:05:34 Mother Atrial fibrillation Atrial fibril lation ; Member s: Mother Not available 08/03/2024 04:05:34 Notes:08/03/2024: Mother: Ot her, Stroke Medical History No medical history recorded. Gynecological HistoryNo gynecological history recorded. Obstetrics History GPAL:G 0 P 0 0 0 0 Immunizations Vaccine Type Date Status Note Provider Nam e and Address Organization Details Recorded Time Td (adult), 5 Lf tetanus toxoid, preservative free, adsorbed 2 completed Not Available [facility] 07/05/2024 11:41:31 Tdap 9 completed Not Available [facility] 07/05/2024 11:41:31 COVID-19, mRNA, LNP-S, PF, 30 mcg/0.3 mL dose 1 completed Not Available [facility] 07/05/2024 11:41:31 COVID-19, mRNA, LNP-S, PF, 30 mcg/0.3 mL dose 1 completed Not Available [facility] 07/05/2024 11:41:31 Past Encounters Encounter ID Performer Location Encounter Start Date Encounter Closed Date Diagnosis/Indication Diagnosis SNOMED-CT Code Diagnosis ICD10 Code Diagnosis Note [id number] Shannan Keller APRN [id number]_BL A_PCP [address] [place] [address] [id number] 1 04/09/2024 14:04:42 04/09/2024 15:31:26 Injury of head 89452377 S09.90XA Contusion of head 366785 009 S00.93XA [id number] ANTONIETTA Carvajal [id number] A_PCP [address] [place] [address] [id number] 1 05/13/2024 07:01:04 05/17/2024 10:16:35 Impaired glucose tolerance 3984921 R73.03 High hemog lobin A1c level 396732785 R73.09 Hypocalcemia 5698712 E83 .51 Osteoporosis 25447552 M8 1.0 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 851315990 R90.82 Peripheral venous insufficiency 03789917 I87.2 Restless legs 09356079 G 25.81 Spinal ajay nosis of lumbar region 57510340 M48.062 Adult heal th examination 639185054 Z00.00 Rheumatoid arthritis 698 27414 M06.9 Calcificat ion of coronary artery 537052604 I25.84 Health Concerns Section Related Observation LastModified by Organization Detai ls LastModified Time None Recorded Concern Status LastModified by Organization Details LastModified Time None Recorded Advance Directives Directive None Recorded Payers Encounter Date Sequence Insurance Name Policy Number Policy Adhikari Covered Member ID Adhikari Member ID Guarantor Name 04/09/2024 1 [facility] (MEDICARE REPLACEMENT/A DVANTAGE - HMO) [id number] Isabel Emerson [id number] Isabel Emerson 05/13/2024 1 [facility] (MEDICARE REPLACEMENT/A DVANTAGE - HMO) [id number] Isabel Emersno [id number] Isabel Emerson Notes Date Note Type Note Provider Name and Address Organization Details Recorded Time 04/09/2024 text/html Isabel comes into the office for a follow up after going to the ED on 03/25/24 after having an accident in her driveway on [facility], where the garage door closed on her head. She went to [place] and had a CT scan, which showed no acute findings. She was advised to see her provider for a follow-up. She denies experiencing headaches, visual changes, confusion, or difficulty concentrating, and has no nausea. She does have an improving contusion on her head. Shannan Keller, [address], [phone], [facility] - [facility] 04/09/2024 15:18:55 05/13/2024 text/html Telehealth follo w [...] and supplements include Prolia, most recent injection Feb or Mar per her java sdet. The patient has stopped taking calcium supplements since the previous office visit.In the review of systems, the patient reports leg pain from venous insufficiency and back pain from spinal stenosis. She does not report any symptoms related to her borderline prediabetes. ANTONIETTA Carvajal [address] [place] [address], [id number], [facility] - [facility] 05/15/2024 19:52:59 OBGyn Episode No OBEpisode recorded.
== END 2024-08-13 11:40 | disposition home or self-care (01) ==
LOC: HO.HNS 10:22
PROVIDERS: PCP Physician Assistant Medical; Referring Provider Nurse Practitioner Family; Visit Provider Neurological Surgery
DX: M43.16 Spondylolisthesis, lumbar region (principal); M48.061 Spinal stenosis, lumbar region without neurogenic claudication; M54.16 Radiculopathy, lumbar region
CPT/HCPCS: 99204

== ENCOUNTER → 2024-08-13 10:21 | Outpatient (BNVA) | payer MEDICARE, SELFPAY | PROVIDERS: PCP Physician Assistant Medical; Referring Provider Nurse Practitioner Family; Visit Provider Neurological Surgery | DX: M43.16 Spondylolisthesis, lumbar region (principal); M48.061 Spinal stenosis, lumbar region without neurogenic claudication; M54.16 Radiculopathy, lumbar region | CPT/HCPCS: 99202 ==

== ENCOUNTER 2024-12-10 13:14 | Outpatient (AMB) | payer MEDICARE, SELFPAY ==
--- OUTSIDE RECORDS SUMMARY | 2021-05-02 07:30 | XMS_ITS | Continuity of Care Document ---
Author Organization [facility] Address [address] [address] Phone Care Team Providers Care Treater Name Role Phone Lencho Still MD Unavailable [...] Established 15 Mins [facility], [address], [id number], tel:[phone] [place] Body mass index (BMI) 28.0-28.9, adultCramp and spasmVenous insufficiency (chronic) (peripheral) 1 [address]. [address], [facility] [address], [place], [address], [place]. tel: [phone] Referring Provider: Doreen Avalos, [address] [facility], [place], [address]. tel:[phone] [facility], [address] [place] [address], [id number], [place] [phone] VR - [place] Chronic venous hypertension w inflammation of r low extremVaricose veins of right lower extremities with pain 1 Che[address]. [address], [address], [place], [address], [place]. tel: [phone] Referring Provider: Doreen Avalos, [address] [facility], [place], [address]. tel:[phone] Office/Outpt E&M Established 15 Mins [facility], [address] [place] [address], [id number], [place] [phone] VR - [place] Body mass index (BMI) 28.0-28.9, adultVenous insufficiency (chronic) (peripheral) 1 [address]. [address], [address], [place], [address], [place]. tel:[phone] Referring Provider: Doreen Avalos, [address] [facility], [place], [address]. tel:[phone] [facility], [address] [place] [address], [id number], [place] tel:[phone] VR - [place] Chronic venous htn w inflammation of bilateral low extrm Thomas-0 7-202 1 [address]. [address], [address], [place], [address], [place]. tel: [phone] Referring Provider: Bridgette Carvajal [address], [place], [address]. tel:[phone] Office/Outpt E&M Established 15 Mins [facility], [address] [place] [address], [id number], [place] tel:[phone] - [place] Body mass index (BMI) 28.0-28.9, adultVenous insufficiency (chronic) (peripheral)Asym ptomatic varicose veins of right lower extremity Jul-0 8- 1 [address]a. [address], [address], [place], [address], [place]. tel: [phone] Referring Provider: Bridgette Carvajal [address], [place], [address]. tel:[phone] [facility], [address] [place] [address], [place], [place], [id number], [place] tel:[phone] VR - [place] Chronic venous hypertension w oth comp of r low extrem Jul-0 8- 1 Che[address]a. [address], [address], [place], [address], [place]. tel: [phone] Referring Provider: Bridgette Carvaj[address], [place], [address]. tel:[phone] [facility], [address] [place] [address], [place], [place], [id number], [place] tel:[phone] VR - [place] Encntr for f/u exam aft trtmt for cond oth than malig neoplmChronic venous hypertension w oth comp of r low extrem 1 [address]. [address], [address], [facility], [address], [place]. tel: [phone] Referring Provider: Doreen Avalos, [address] [facility], [place], [address]. tel:[phone] [facility], [address] [place] [address], [id number], [place] tel:[phone] VR - [place] Varicose veins of right lower extremity with inflammation 1 [address]. [address], [address], [place], [address], [place]. tel: [phone] Referring Provider: Doreen Avalos, [address] [facility], [place], [address]. tel:[phone] Office/Oupt E&M New Pt 45 Mins [facility], [address] [place] [address], [id number], [place] tel:[phone] VR - [place] Body mass index (BMI) 28.0-28.9, adultEssential (primary) hypertensionVeno us insufficiency (chronic) (peripheral)Vari cose veins of bi low extrem w oth complications 1 [address]. [address], [address], [facility], [address], [place]. tel: [phone] Referring Provider: Doreen Avalos, [address] [facility], [place], [address]. tel:[phone] [facility], [address] [place] [address], [id number], [place] tel:[phone] VR - [place] Chronic venous htn w oth comp of bilateral low extrm 1 [address]. [address], [address], [facility], [address], [place]. tel:[phone] Referring Provider: Doreen Avalos, [address] [place], [address]. tel:[phone] [facility], [address] [place] [address], [id number], tel:[phone] VR - [place] Varicose veins of right lower extremities with pain 0 Virgie DAMON Thang. [address] [place] [address], [facility] [address], [place], [id number] , . tel: [phone] Referring Provider: Doreen Avalos, [address] [place], [address]. tel:[phone] Family History Family Member Type Diagnosis Age [...] Insurance type Covered democrat ID Authormindya bee(s) [facility] Medicare A dvantage X [id number] Social History Type Description Quantity Date Captured [...] Diet education completed Goal Diet education completed Referral Ordered: [...] Patient education booklet given Related to Cramping Giving Encouragement to Exercise Related to Body mass index [BMI] 28.0-28.9, adult Diet education Related to Body mass index [BMI] 28.0-28.9, adult Giving Encouragement to Exercise Related to Body mass index [BMI] 28.0-28.9, adult Diet education Related to Body mass index [BMI] 28.0-28.9, adult Patient education booklet given Related to Venous Insufficiency (Chronic / Peripheral) Giving Encouragement to Exercise Related to Body mass index [BMI] 28.0-28.9, adult Diet education Related to Body mass index [BMI] 28.0-28.9, adult Continue compression stocking us e Related to Venous Insufficiency (Chronic / Peripheral) Continue compression stocking us e Related to Venous Insufficiency (Chronic / Peripheral) Patient education booklet given Related to Venous Insufficiency (Chronic / Peripheral) Exercise education Related to Es sential (primary) hypertension Diet education Related to Essen tial (primary) hypertension Lifestyle education Related to E ssential (primary) hypertension Giving Encouragement to Exercise Related to Body mass index [BMI] 28.0-28.9, adult Diet education Related to Body mass index [BMI] 28.0-28.9, adult Assessments Type Assessment Date assessment Body mass index [BMI] 28.0-28.9, adult assessment Cramp and spasm assessment Venous insufficiency (chronic) ( peripheral) Patient Care Teams Name Effective Dates (start - stop) Status Members No Information
--- OUTSIDE RECORDS SUMMARY | 2024-12-10 13:17 | XMS_ITS | Clinical Summary ---
Author Organization [facility] Address [address] [place] [address] Care Team Providers Care Sheet Metal Worker Apprentice Name Role Phone Doreen Avalos PA-C Primary Care Provider [phone] Allergies Active Allergy Reactions Criticality Noted Date [...] Covid-19 (Pfizer) Dilution Required 08/29/2020,0 08/08/2020 [facility]/14/2012 Family History Medical History Relation Name [...] 63 03/25/2024 5:42 PM EDT Temperature 36.3 C (97.4 F) 02/07/2024 11:35 AM EDT Respiratory Rate 18 03/25/2024 5:42 PM EDT [...] of 1 - PCV) 2017 COVID-19 Vaccine ( - season) 2024 08/29/2020, 08/08/2020 Osteoporosis Screening (DEXA Scan) 03/19/2024 03/19/2022, 12/30/2019 Depression Screening 11/02/2024 11/03/2023, 10/30/2022, 10/25/2021, Additional history exists Fall Risk Assessment 11/02/2024 11/03/2023, 10/30/2022, 10/25/2021, Additional history exists Preventative Health Evaluation 11/02/2024 11/03/2023, 11/03/2023, 10/30/2022, Additional history exists Influenza Vaccine (#1) 2025 Breast Cancer Screening (Mammogram) 03/14/2025 03/14/2023, 03/04/2022, [...] age to complete this topic Care Teams Sheet Metal Worker Apprentice Relationship Specialty Start Date End Date Doreen Avalos PA-C PCP - General Physician Outsole Cementer 11/22/14
--- OUTSIDE RECORDS SUMMARY | 2024-12-10 13:17 | XMS_ITS | Clinical Summary ---
Author Organization [facility] Address [address] [place] [address] Phone Care Team Providers Care Vacuum Metalizing Supervisor Name Role Phone Doreen Avalos Primary Care Provider [phone] Surgical History Surgery Date Site/Laterality Comments KNEE [...] 03/25/2024 5:42 PM EDT Plan of Treatment Upcoming Encounters Date Type Department Care Team (Late st Contact Info) Description 01/28/2025 11:30 AM EDT Consult Rehabilitation Medicine - [place] [address] [facility] [address] [place] [id number] Lo Lin MD [address] [place] [address] Health Maintenance Due Date Last Done Comments Breast Cancer Screening 1950 Pneumococcal Vaccine: 50+ Years (1 of 1 - PCV) 2002 Zoster Vaccines (1 of 2) 2002 COVID-19 Vaccine (3 - Pfizer risk series) 09/26/2020 08/29/2020, 08/08/2020 Colorectal Cancer Screening: Colonoscopy 05/02/2022 Falls Risk Assessment 05/02/2022 Hepatitis C Screening 05/02/2022 Social Influencers of Health Screening 05/02/2022 Hypertension/CHF/CAD Annual BMP Blood Test 05/05/2022 Depression Screening 05/26/2024 Influenza Vaccine (#1) 2025 RSV Immunization Adult Patients (1 - 1-dose 75+ series) 2027 Cholesterol [...] age to complete this topic Meningococcal B Vaccine Aged Out No l onger eligible based on patient's age to complete [...] Indication and risk factors: Postmenopausal female. Screening for osteoporosis. No priors. Study acquired on a [facility] densitometer. Imaging of the lumbar spine and [...] on 03/19/2022 11:18 AM. Workstation Name - [facility] Procedure Note Amie العراقي MD - 05/17/2022 Bone density study Indication and risk factors: Postmenopausal female. Screening forosteoporosis. No priors. Study acquired on a [employer] densitometer. Imaging of thelumbar spine and [...] on 03/19/2022 11:18 AM.Workstation Name - [facility] Gautam Mcconnell MD IMG DXA PROCEDURES Final Re sult from Last 3 Months or Most Recently Relevant to Health Maintenance Insurance [facility]) Care Teams Vacuum Metalizing Supervisor Relationship Specialty Start Date End Date Doreen Avalos PA PCP - General Physician Security Alarm Technician 11/22/14
--- OUTSIDE RECORDS SUMMARY | 2024-12-10 13:17 | XMS_ITS | Encounter Summary ---
Author Organization [facility] Address [address] [place] [address] Care Team Providers Care Metal Bumper Name Role Phone Kade Cummings MD Primary Care Provider Encounter Details Date Type Department Care Team ([facility] st Contact Info) Description 07/22/2019 Prep for Surgery OPHTHALMOLOGY [address] [place] [phone] Triston Fulton MD [address] [facility] [address] [place] [address] Social History Tobacco Use Types Packs/Day Years Used Date Smoking Tobacco: Former Cigarettes 0 07/22/1976 - 07/22/1981 Smokeless Tobacco: Never Alcohol Use Standard Drinks/Week Comments Never 0 (1 standard drink = 0.6 oz pur e alcohol) AUDIT-C Answer Date Recorded Frequency of Alcohol Consumption Never 07/22/2019 Average Number of Drinks Not on file 020 Frequency of Binge Drinking Not on file 06/27 Comments Unknown Sex and Gender Information Value Date Recorded Sex Assigned at Not on file Legal Sex Female 3:03 PM EST Gender Identity Not on file Sexual Orientation Not on file documented as of this encounter Functional Status documented as of this encounter Plan of Treatment Not on file documented as of this encounter Visit Diagnoses Not on filedocumented in this encounter Care Teams Metal Bumper Relationship Specialty Start Date End Date Kade Cummings MD [address] [place] [address] PCP - General Internal Medicine 04/25/17 documented as of this encounter
--- OUTSIDE RECORDS SUMMARY | 2024-12-10 13:17 | XMS_ITS ---
Author Name [facility] Organization Unknown Results Test Name/Text Value Interpretation Date Range Source Ferritin SerPl-mCnc 72.0 ng/mL Normal 05/07/2024 16 - 288 [facility] 25(OH)D3+25(OH)D2 SerPl-mCnc 36.0 ng/mL Normal 05/07/2024 30 - 100 [facility] Iron Satn MFr SerPl 28.0 % (calc) Normal 05/07/2024 16 - 45 [facility] Iron SerPl-mCnc 90.0 mcg/dL Normal 05/07/2024 45 - 160 [facility] TIBC SerPl-mCnc 319.0 mcg/dL (calc) Normal 05/07/2024 250 - 450 [facility] Ca-I SerPl-mCnc 4.8 mg/dL Normal 05/07/2024 4.7 - 5.[address] Calcium SerPl-mCnc 8.5 mg/dL Below low normal 05/07/2024 8.6 - 10.4 [facility] PTH-Intact SerPl-mCnc 114.0 pg/mL Above high normal 05/07/20 24 16 - 77 [facility] Hct VFr Bld Auto 40.5 % Normal 05/07/2024 35 - 45 QU EST Neutrophils # Bld Auto 3662.0 cells/uL Normal 05/07/2024 1500 - 7800 [facility] Hgb Bld-mCnc 13.4 g/dL Normal 05/07/2024 11.7 - 15.5 [facility] Neutrophils/leuk NFr Bld Auto 65.4 % Normal 05/07/2024 [facility] WBC # Bld Auto 5.6 Thousand/uL Normal 05/07/2024 3.8 - 10 .8 [facility] Monocytes/leuk NFr Bld Auto 9.6 % Normal 05/07/2024 [facility] Monocytes # Bld Auto 538.0 cells/uL Normal 05/07/2024 200 - 950 [facility] Eosinophil # Bld Auto 330.0 cells/uL Normal 05/07/2024 15 - 500 [facility] Basophils/leuk NFr Bld Auto 0.9 % Normal 05/07/2024 [facility] MCH RBC Qn Auto 31.4 pg Normal 05/07/2024 27 - [address] PMV Bld Soham-Marisela 10.3 fL Normal 05/07/2024 7.5 - 12.5 [facility] Lymphocytes # Bld Auto 1019.0 cells/uL Normal 05/07/2024 850 - 3900 [facility] RDW RBC Auto-Rto 14.1 % Normal 05/07/2024 11 - 15 QU EST Eosinophil/leuk NFr Bld Auto 5.9 % Normal 05/07/2024 [facility] RBC # Bld Auto 4.27 Million/uL Normal 05/07/2024 3.8 - 5. 1 [facility] MCV RBC Auto 94.8 fL Normal 05/07/2024 80 - 100 [facility] Basophils # Bld Auto 50.0 cells/uL Normal 05/07/2024 0 - 200 [facility] MCHC RBC Auto-mCnc 33.1 g/dL Normal 05/07/2024 32 - 36 [facility] Lymphocytes/leuk NFr Bld Auto 18.2 % Normal 05/07/2024 [facility] Platelet # Bld Auto 275.0 Thousand/uL Normal 05/07/2024 140 - 400 [facility] LDLc SerPl Calc-mCnc 79.0 mg/dL (calc) Normal 05/07/2024 [facility] HDLc SerPl-mCnc 80.0 mg/dL Normal 05/07/2024 - QU EST NonHDLc SerPl-mCnc 94.0 mg/dL (calc) Normal 05/07/2024 - 130 [facility] Cholest/HDLc SerPl 2.2 (calc) Normal 05/07/2024 - 5 [facility] Cholest SerPl-mCnc 174.0 mg/dL Normal 05/07/2024 - 200 [facility] Trigl SerPl-mCnc 72.0 mg/dL Normal 05/07/2024 - 150 [facility] Est. average glucose Bld gHb Est-mCnc 126.0 mg/dL (calc) Normal 05/07/2024 [facility] HbA1c MFr Bld 5.7 % of total Hgb Above high normal 05/07/2024 - 5.7 [facility] BUN SerPl-mCnc 15.0 mg/dL Normal 05/07/2024 7 - [address] CO2 SerPl-sCnc 26.0 mmol/L Normal 05/07/2024 20 - 32 QU EST Creat SerPl-mCnc 0.7 mg/dL Normal 05/07/2024 0.6 - 1 QU EST Globulin Ser Calc-mCnc 3.1 g/dL (calc) Normal 05/07/2024 1.9 - 3.7 [facility] Glucose SerPl-mCnc 105.0 mg/dL Above high normal 05/07/2024 65 - 99 [facility] Calcium SerPl-mCnc 8.5 mg/dL Below low normal 05/07/2024 8.6 - 10.4 [facility] Potassium SerPl-sCnc 4.2 mmol/L Normal 05/07/2024 3.5 - 5 .3 [facility] Albumin/Glob SerPl 1.3 (calc) Normal 05/07/2024 1 - 2.5 [facility] Prot SerPl-mCnc 7.0 g/dL Normal 05/07/2024 6.1 - 8.[address] eGFRcr SerPlBld CKD-EPI 2020 92.0 mL/min/1.73m2 Normal 05/07/2024 - [facility] Albumin SerPl-mCnc 3.9 g/dL Normal 05/07/2024 3.6 - 5.1 [facility] ALT SerPl-cCnc 25.0 U/L Normal 05/07/2024 6 - 29 [facility] Sodium SerPl-sCnc 140.0 mmol/L Normal 05/07/2024 135 - 14 6 [facility] BUN/Creat SerPl SEE NOTE: Normal 05/07/2024 6 - [address] Bilirub SerPl-mCnc 0.6 mg/dL Normal 05/07/2024 0.2 - 1.2 [facility] Chloride SerPl-sCnc 106.0 mmol/L Normal 05/07/2024 98 - 1 10 [facility] ALP SerPl-cCnc 72.0 U/L Normal 05/07/2024 37 - 153 [facility] AST SerPl-cCnc 20.0 U/L Normal 05/07/2024 10 - 35 [facility] History of Medication Use Medication Directions Dispensed Refills Start Date End Date Stat prednisone 20 mg tablet Take 2 tablets every day by oral route in the morning for 3 days. 11/30/2024 active tramadol 50 mg tablet Take 1 tablet every 6-8 hours by oral route, for pain; can take with tylenol. 11/30/2024 active losartan 100 mg tablet Take 1 tablet by mouth daily. 09/03/2024 active rosuvastatin 5 mg tablet Take 1 tablet by mouth daily. 09/03/2024 active MAGNESIUM 04/12/2024 active Naproxen 500mg Delayed-Release Tablet 04/12/2024 active diltiazem ER 180 mg capsule,24 hr,extended release Take 1 capsule (180 mg total) by mouth daily. 05/28/2023 active latanoprost 0.005 % eye drops INSTILL 1 DROP INTO LEFT EYE AT BEDTIME 03/05/2023 active nystatin-triamcinolo ne 100,000 unit/g-0.1 % topical cream Apply topically 2 (two) times a day. 4 completed chlorthalidone 25 mg tablet 4 completed fluconazole 100 mg tablet 4 completed prednisone 20 mg tablet active tramadol 50 mg tablet active methocarbamol 500 mg tablet active denosumab 60 mg/mL subcutaneous syringe Inject 1 mL (60 mg total) under the skin once. active folic acid 1 mg tablet Take 1 tablet (1 mg total) by mouth 4 (four) times a week. active methocarbamol 500 mg tablet active methotrexate sodium 2.5 mg tablet Take 10 tablets (25 mg total) by mouth once a week. active naproxen 500 mg tablet active Reclast active timolol maleate 0.5 % eye drops INSTILL 1 DROP INTO BOTH EYES TWICE A DAY active Vyzulta 0.024 % eye drops active Allergies Allergen Reaction Severity Comment Documented Date Source Statu s ERYTHROMYCIN ENS_PODCRCT ERYTHROMYCIN BASE [facility] LISINOPRIL ENS_PODCRCT Problems Problem Status Onset Date Problem Type Date of Resolution Source Essential hypertension active 2017-04-07 ProblemAct [facility] Lumbar radiculopathy active 2019-09-08 ProblemAct [facility] Bilateral peripheral neuropathy of lower limbs active 2017-04-07 ProblemAct [facility] Rheumatoid arthritis of multiple joints active 2017-04-07 ProblemAct [facility] Impaired glucose tolerance active 2024-05-15 ProblemAct [facility] Electromyogram abnormal active 2017-11-19 ProblemAct [facility] History of glaucoma active 2017-04-07 ProblemAct [facility] Venous insufficiency of leg active 2017-04-07 ProblemAct [facility] Peripheral venous insufficiency active 2024-05-15 ProblemAct [facility] Glaucoma active 2023-02-04 ProblemAct [facility] Osteoporosis active 2024-05-15 [address] [facility] NE History of arthroscopy of knee joint active 2017-04-07 ProblemAct [facility] Degeneration of lumbar intervertebral disc active 2019-09-08 ProblemAct [facility] Spinal stenosis of lumbar region active 2024-05-15 ProblemAct [facility] Rheumatoid arthritis active 2024-05-15 ProblemAct [facility] Calcification of coronary artery active 2024-05-15 ProblemAct [facility] Body mass index 25-29 - overweight active 2018-11-21 ProblemAct [facility] Senile osteoporosis active 2017-09-25 ProblemAct [facility] Mixed hyperlipidemia active 2019-12-22 ProblemAct [facility] Detachment of retina of left eye active 2019-07-22 ProblemAct [facility] Restless legs active 2024-05-15 Problem[address] [facility]_S ONE History of procedure active 2017-09-17 ProblemAct [facility] 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 active 2024-05-15 ProblemAct [facility] Restless legs active 2024-05-15 ProblemAct [facility]_S ONE Detachment of retina of left eye active 2019-07-22 ProblemAct [facility] 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 active 2024-05-15 ProblemAct [facility] Chronic low back pain active 2018-11-21 ProblemAct [facility] History of cardiovascular disease active 2017-11-19 ProblemAct [facility] Other hammer toe(s) (acquired), left foot active 2024-04-12 EncounterDiagnosisAct ENS_PO DCRCT [id number] - Heel pain active 2024-04-[address] ENS_PODCRCT Rheumatoid arthritis, left ankle and foot active 2024-04-12 EncounterDiagnosisAct ENS_ PODCRCT Rheumatoid arthritis, right ankle and foot active 2024-04-12 ProblemAct ENS_PODCRCT Other hammer toe(s) (acquired), right foot active 2024-04-12 EncounterDiagnosisAct ENS_PO DCRCT Pain in left toe(s) active 2024-04-12 ProblemAct ENS_PODCRCT Porokeratoma active 2024-04-12 ProblemAct ENS_P ODCRCT Immunizations Vaccine Date Source Lot Number Status SARS-COV-2 (COVID-19) vaccin e, mRNA, spike protein, LNP, preservative free, 30 mcg/0.3mL dose, charissa-sucrose formulation 12/21/2021 [facility] [id number] c ompleted SARS-COV-2 (COVID-19) vaccin e, mRNA, spike protein, LNP, preservative free, 30 mcg/0.3mL dose 03/05/2021 [facility] [id number] completed SARS-COV-2 (COVID-19) vaccin e, mRNA, spike protein, LNP, preservative free, 30 mcg/0.3mL dose 08/29/2020 [facility] [id number] completed SARS-COV-2 (COVID-19) vaccin e, mRNA, spike protein, LNP, preservative free, 30 mcg/0.3mL dose 08/08/2020 [facility] [id number] completed tetanus toxoid, reduced diph theria toxoid, and acellular pertussis vaccine, adsorbed 11/21/2018 [facility] [id number] completed tetanus and diphtheria toxoi ds, adsorbed, preservative free, for adult use 04/14/2012 [facility] completed Encounters Encounter Type Encounter Reason Primary Diagnosis Location Date Ambulatory [facility] 11/30/2024 Ambulatory [facility] 05/08/2024 Ambulatory [facility] 03/29/2024 Emergency Headache, unspecified Headache, unspecified [facility] 03/25/2024 Care Team Organization Name Specialty Phone Email Start Date End Da te [facility] 09/18/2024 [facility] 04/12/20 [facility] 03[facility]30/2024 [facility] 03/26/2024 12/07/2024 [facility] 03/26/2024 [facility] 05/2023 [facility] 03/20/2023 [facility] 02/15/2021 01/12/2024
--- NOTE | 2024-12-10 13:55 | A.SPINEOV_ITS ---
Intake Visit Reasons: continued and increasing back pain Intake Note: Mrs. Banda is here today c/o increasing back pain. Sulfuric Acid Plant Operator Required: No Allergies erythromycin base Allergy (Unknown, Verified 12/10/24 13:55) Unknown lisinopril Allergy (Unknown, Verified 12/10/24 13:55) cough Assessment & Plan Assessment & Plan (1) Spondylolisthesis of lumbar region: Code(s): M43.16 - Spondylolisthesis, lumbar region Category: Medical (2) Spinal stenosis of lumbar region with radiculopathy: Code(s): M48.061 - Spinal stenosis, lumbar region without neurogenic claudication; M54.16 - Radiculopathy, lumbar region Category: Medical Plan Dear colleague, On 12/10/2024, I saw for follow-up Isabel Banda. She experienced a significant increase in her symptomatology. Previously when I saw her she was symptomatic from an L4-5 spondylolisthesis with severe L4-5 spinal stenosis but she was able to manage her symptoms and was not interested in any invasive solutions. In the beginning of November her symptoms dramatically changed. She can not walk or stand for any given period of time. In addition, she has severe back pain. She now ambulates with a walker to get some relief. The back pain radiates down both legs in his a 10/10. She to prednisone and tramadol without success. She denies weakness or numbness. She is looking for a permanent solution. As previously stated, she is suffering from neurogenic claudication caused by the lumbar spondylolisthesis and spinal stenosis. A dynamic x-ray shows a grade 2 L4-5 spondylolisthesis and possibly also a spondylolisthesis at L5-S1. The treatment for current symptoms remains surgery. I would like to obtain a CT of the lumbar spine to have a better understanding of the bony anatomy and the amount of spondylolisthesis at the L5-S1 level. If the L5-S1 level shows a significant shift than this needs to be included in the proposed fusion through an oblique lumbar interbody fusion. We will request CT of the lumbar spine and she will follow-up with me shannen to determine a final plan. Of note, I do not think that an epidural steroid injection is going to be helpful in this patient. I spent 25 minutes in his consult to review imaging and discussing plan of care. Misbah Cuellar MD, PhD Spine Fellowship Trained Neurosurgeon Director, [facility] Orders: Orders CT lumbar spine wo IV con Today M43.16 - Spondylolisthesis, lumbar region, M48.061 - Spinal stenosis, lumbar region without neurogenic claudication, M54.16 - Radiculopathy, lumbar region Coding Level of Care Code Est Pt Level 3 (79620) Diagnoses Spondylolisthesis of lumbar region M43.16 Spinal stenosis of lumbar region with radiculopathy M48.061; M54.16
== END 2024-12-10 14:35 | disposition home or self-care (01) ==
LOC: HO.HNS 13:15
PROVIDERS: PCP Physician Assistant Medical; Visit Provider Neurological Surgery
DX: M43.16 Spondylolisthesis, lumbar region (principal); M48.061 Spinal stenosis, lumbar region without neurogenic claudication; M54.16 Radiculopathy, lumbar region
CPT/HCPCS: 99213

== ENCOUNTER → 2024-12-10 13:14 | Outpatient (BNVA) | payer MEDICARE, SELFPAY | PROVIDERS: PCP Physician Assistant Medical; Visit Provider Neurological Surgery | DX: M43.16 Spondylolisthesis, lumbar region (principal); M48.061 Spinal stenosis, lumbar region without neurogenic claudication; M54.16 Radiculopathy, lumbar region | CPT/HCPCS: 99212 ==

== ENCOUNTER 2025-01-25 05:53 | Inpatient (IN) | payer MEDICARE, SELFPAY ==
--- OUTSIDE RECORDS SUMMARY | 2021-05-02 07:30 | XMS_ITS | Continuity of Care Document ---
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 [address] [place], [facility] [address], [place], [address], [place]. tel: [phone] Referring Provider: Doreen Avalos, [address] [facility], [place], [address]. tel:[phone] [facility], [address] [place] [address], [id number], [place] [phone] VR - [place] - [place] Chronic venous hypertension w inflammation of r low extremVaricose veins of right lower extremities with pain 1 Cheko Musa. [address] [place], [address], [place], [address], [place]. tel: [phone] Referring Provider: Doreen Avalos, [address] [facility], [place], [address]. tel:[phone] Office/Outpt E&M Established 15 Mins [facility], [address] [place] [address], [id number], [place] [phone] VR - [place] - [place] Body mass index (BMI) 28.0-28.9, adultVenous insufficiency (chronic) (peripheral) 1 Cheko Musa. [address] [place], [address], [place], [address], [place]. tel:[phone] Referring Provider: Doreen Avalos, [address] [facility], [place], [address]. tel:[phone] [facility], [address] [place] [address], [id number], [place] tel:[phone] VR - [place] - [place] Chronic venous htn w inflammation of bilateral low extrm Thomas-0 7-202 1 Cheko Musa. [address] [place], [address], [place], [address], [place]. tel: [phone] Referring Provider: Bridgette Carvajal RD, [place], [address]. tel:[phone] Office/Outpt E&M Established 15 Mins [facility], [address] [place] [address], [id number], [place] tel:[phone] - [place] - [place] Body mass index (BMI) 28.0-28.9, adultVenous insufficiency (chronic) (peripheral)Asym ptomatic varicose veins of right lower extremity Jul-0 8- 1 Cheko Musa. [address] [place], [address], [place], [address], [place]. tel: [phone] Referring Provider: Bridgette [place]vajal RD, [place], [address]. tel:[phone] [facility], [address] [place] [address], [place], [place], [id number], [place] tel:[phone] VR - [place] - [place] Chronic venous hypertension w oth comp of r low extrem Jul-0 8- 1 Cheko Musa. [address] [place], [address], [place], [address], [place]. tel: [phone] Referring Provider: Bridgette Carvajal RD, [place], [address]. tel:[phone] [facility], [address] [place] [address], [place], [place], [id number], [place] tel:[phone] VR - [place] - [place] Encntr for f/u exam aft trtmt for cond oth than malig neoplmChronic venous hypertension w oth comp of r low extrem 1 Cheko Musa. [address] [place], [address], [facility] [place], [address], [place]. tel: [phone] Referring Provider: Doreen Avalos, [address] [facility], [place], [address]. tel:[phone] [facility], [address] [place] [address], [id number], [place] tel:[phone] VR - [place] - [place] Varicose veins of right lower extremity with inflammation 1 Cheko Musa. [address] [place], [address], [place], [address], [place]. tel: [phone] Referring Provider: Doreen Avalos, [address] [facility], [place], [address]. tel:[phone] Office/Oupt E&M New Pt 45 Mins [facility], [address] [place] [address], [id number], [place] tel:[phone] VR - [place] - [place] Body mass index (BMI) 28.0-28.9, adultEssential (primary) hypertensionVeno us insufficiency (chronic) (peripheral)Vari cose veins of bi low extrem w oth complications 1 Cheko Musa. [address] [place], [address], [facility] [place], [address], [place]. tel: [phone] Referring Provider: Doreen Avalos, [address] [facility], [place], [address]. tel:[phone] [facility], [address] [place] [address], [id number], [place] tel:[phone] VR - [place] - [place] Chronic venous htn w oth comp of bilateral low extrm 1 Cheko Musa. [address] [place], [address], [facility] [place], [address], [place]. tel:[phone] Referring Provider: Doreen Avalos, [address] [place], [address]. tel:[phone] Physician for Vein Synagogue [facility], [address] [place] [address], [id number], tel:[phone] VR - [place] - [place] Varicose veins of right lower extremities with pain 0 Virgie DAMON Thang. [address] [place] [address], [facility] [address], [place], [id number] , . tel: [phone] Referring Provider: Doreen Avalos, [address] [place], [address]. tel:[phone] Family History Family Member Type Diagnosis Age [...] insufficiency Payers Payer name Insurance type Covered democrat ID Authormindya bee(s) [facility] Medicare A dvantage X CI [id number] Social History Type Description Quantity Date Captured [...] Of Treatment Date Type Action Status Goal Tobacco cessation counseling completed Goal Diet [...]
--- OUTSIDE RECORDS SUMMARY | 2024-11-08 20:00 | XMS_ITS | Continuity of Care Document ---
Author Organization [facility] Address [address] MD [place] [address] Phone Care Team Providers Care Railroader Name Role Phone Mark DAMON, INDIRA, TAL, [...] Diagnoses Date Provider Providers Copied on Encounter [place] [facility], [address] [place] [address] Dr Ribeiro 1000[facility] 1000[place], [id number], tel:[phone] CVR - [facility] No Information 5 Mark DAMON RVT, TAL Martin. [address] [place] [address], [id number], [place]. tel:[phone] Referring Provider: Doreen Avalos [address] [place] [address], [facility]. tel:[phone] Office/Outpt E&M Established 25 Mins- CT & [place] [facility], [address] [place] [address] Dr Ribeiro 1000[facility] 1000[place]rice [place], [id number], tel:[phone] CVR [facility] Chronic venous hypertension (idiopathic) with other complications of bilateral lower extremity 5 Mark DAMON RVT, TAL Martin. [address] [place] [address], [id number], [place]. tel:[phone] Referring Provider: Bridgette Carvajal [place], [place], [facility]. tel:[phone] [place] [facility], [address] [place] [address] Dr Ribeiro 1000[facility] 1000[place]rice [place], [id number], [place] tel:[phone] CVR [facility] Chronic venous hypertension (idiopathic) with other complications of bilateral lower extremity 5 Mark DAMON RVT, RPVI Robert. [address] [place] [address], [id number], [place]. tel:[phone] Referring Provider: Bridgette Carvajal [place], [facility]. tel:[phone] Office/Outpt E&M Established 15 Mins- CT & [place] [facility] MD [facility], [address] [place] [address] Dr Ribeiro 1000Beatrice velasquez MD, [id number], [place] tel:[phone] [facility] - [place] Venous insufficiency (chronic) (peripheral)Es sential (primary) hypertension 4 Malina Christensen. [address] [place] [address], [facility] [place], [id number], [place]. tel:[phone] Referring Provider: Doreen Avalos [address] [place] [address], [facility]. tel:[phone] [facility] [place] [facility], [address] [place] [address] Dr Ribeiro 1000Beatrice velasquez MD, [id number], [place] tel:[phone] CVR - [facility] Chronic venous hypertension (idiopathic) with other complications of bilateral lower extremity 4 Delia Benítez. [address] [place] [address], [place], [place], [id number], [place]. tel:[phone] Referring Provider: Doreen Avalos [address] [place] [address], [facility]. tel:[phone] [facility] [place], [address] [place] [address] Dr Ribeiro 1000Beatrice velasquez MD, [id number], [place] tel:[phone] [facility] - [place] Localized edema 4 Mark DAMON RVT, RPVI Robert. [address] [place] [address], [place], [id number], [place]. tel:[phone] [facility] [place] [facility], [address] [place] [address] Dr Ribeiro 1000SuBeatrice velasquez MD, [id number], [place] tel:[phone] [facility] Encounter for follow-up examination after completed treatment for conditions other than malignant neoplasmPain in right lower leg 4 Mark DAMON RVT, RPVI Robert. [address] [place] [address], [facility] [place], [id number], [place]. tel:[phone] Referring Provider: Doreen Avalos [address] [place] [address], [facility]. tel:[phone] [facility] [place] [facility], [address] [place] [address] Dr Ribeiro 1000Suite [place]rice Rizvi MD, [id number], [place] tel:[phone] [facility] Encounter for follow-up examination after completed treatment for conditions other than malignant neVaricose veins of right lower extremity with pain 4 Mark DAMON RVT, TAL Martin. [address] [place] [address], [facility] [place], [id number], [place]. tel:[phone] Referring Provider: Bridgette Carvajal [place], [facility]. tel:[phone] [facility], [address] [place] [address] Dr Ribeiro 1000Suite Beatrice Rizvi MD, [id number], [place] tel:[phone] [facility] Varicose veins of right lower extremity with other complications 4 Devin Schaeffer. [address] [place] [address], [facility] [place] [place], [id number], [place]. tel:[phone] Referring Provider: Doreen Avalos [address] [place] [address], [facility]. tel:[phone] [facility], [address] [place] [address] Dr Ribeiro 1000Suite Beatrice Rizvi MD, [id number], [place] tel:[phone] [facility] Varicose veins of right lower extremity with other complications 4 Mark DAMON RVT, TAL Martin. [address] [place] [address], [facility] [place] [place], [id number], [place]. tel:[phone] Referring Provider: Bridgette Carvajal [place], [facility]. tel:[phone] [facility], [address] [place] [address] Dr Ribeiro 1000Suite Beatrice Rizvi MD, [id number], [place] tel:[phone] [place] Venous insufficiency (chronic) (peripheral) 4 Mark DAMON RVT, RPVI Robert. [address] [place] [address], [facility] [place], [id number], [place]. tel:[phone] [facility] MD [facility], [address] [place] [address] Dr Ribeiro 1000SuBeatrice velasquez MD, [id number], [place] tel:[phone] [facility] - [place] Encounter for follow-up examination after completed treatment for conditions other than malignant neoplasmPain in left leg 4 Mark DAMON RVT, TAL Martin. [address] [place] [address], [place] [address], [facility] [place], [id number], [place]. tel:[phone] Referring Provider: Doreen Avalos [address] [place] [address], [address]. tel:[phone] [facility] MD [facility], [address] [place] [address] Dr Ribeiro 1000Suite Beatrice Rizvi MD, [id number], [place] tel:[phone] [facility] - [place] No Information 4 Mark DAMON RVT, RPVI Robert. [address] [place] [address], [facility] [place], [id number], [place]. tel:[phone] Referring Provider: Doreen Avalos [address] [place] [address], [address]. tel:[phone] [facility], [address] [place] [address] Dr Ribeiro 1000Suite Beatrice Rizvi MD, [id number], [place] tel:[phone] CVR - [facility] Varicose veins of left lower extremity with other complications 4 Mark DAMON RVT, RPVI Robert. [address] [place] [address], [place], [id number], [place]. tel:[phone] Referring Provider: Doreen Avalos [address] [place], [address]. tel:[phone] [facility] MD [facility], [address] [place] [address] Dr Ribeiro 1000Suite Beatrice Rizvi [place], [id number], tel:[phone] [facility] No Information 4 Mark DAMON RVT, TAL Martin. [address] [place] [address], [facility] [place], [id number], [place]. tel:[phone] Office/Outpt E&M Established 25 Mins- CT & [place] [facility], [address] [place] [address] Dr Ribeiro 1000[facility] 1000Beatrice [place], [id number], tel:[phone] [facility] Chronic venous hypertension (idiopathic) without complications of bilateral lower extremityEssen tial (primary) hypertensionPr uritus, unspecified Jan- 4 Mark DAMON RVT, TAL Martin. [address] [place] [address], [facility] [place], [id number], [place]. tel:[phone] Referring Provider: Bridgette Carvajal [place], [facility]. tel:[phone] [place] [facility], [address] [place] [address] Dr Ribeiro 1000[place] [address]Beat[place], [id number], tel:[phone] [facility] Varicose veins of bilateral lower extremities with pain 4 Mark DAMON RVT, TAL Martin. [address] [place] [address], [facility] [place], [id number], [place]. tel:[phone] Referring Provider: Bridgette Carvajal [place], [facility]. tel:[phone] Family History Family Member Type Diagnosis Age [...] Goal Tobacco cessation counseling completed Referral Ordered: Weight management: Referral to [...] BOOKYanelis D Appointment Isabel Banda (1 Year) BOOKYanelis D History Of Present Illness Encounter Date Complaint History Of Prese nt Illness No Information Functional Status Date Functional Assessmen t No Information Instructions Date Instruction Additional Infor mation Diet education Related to Body mass index (BMI) 27.0-27.9, adult Giving Encouragement to exercise Related to Body mass index (BMI) 27.0-27.9, adult Lifestyle education Related to B rommel mass index (BMI) 27.0-27.9, adult Compression stocking usage as conservative measure Related to Chronic venous hypertension (idiopathic) with other complications of bilateral lower extremity Patient education [...] education booklet given Related to Localized edema Diet education Related to Body mass index (BMI) 27.0-27.9, adult Giving Encouragement to exercise Related to Body mass index (BMI) 27.0-27.9, adult Jan- Lifestyle education Related to B rommel mass index (BMI) 27.0-27.9, adult Patient education booklet given Related to Chronic venous hypertension (idiopathic) without complications of bilateral lower extremity Pre and post instruc tions reviewed and provided Related to Chronic venous hypertension (idiopathic) without complications of bilateral lower extremity Assessments Type Assessment Date No Information Patient Care Teams Name Effective Dates (start - stop) Status Members No Information
[2025-01-19 10:49] VITALS: BP 138/65; PULSE 59; RESP 16; O2SAT 97; BMI 28.0
[2025-01-25] VITALS (13 sets, daily range): BP systolic 119–172; BP diastolic 49–69; PULSE 53–75; RESP 8–18; TEMP 34.8–37.5; O2SAT 94–99; BMI 28.3
--- NOTE | ~2025-01-25 | FL_ITS ---
EXAMINATION: XR FLUOROSCOPY WITH IMAGES CLINICAL INFORMATION: L4-5 OLIF COMPARISON: None available. TECHNIQUE: Fluoroscopy provided to: Dr. Cuellar Fluoroscopy time: 0.2 minutes DAP: 18.05 Gycm2 Images: 6 FINDINGS: 6 fluoroscopic spot images obtained of the lumbar spine during L4-5 lumbar fusion. Please refer to the full operative report for details. FL/FL guidance in OR IMPRESSION: Fluoroscopic guidance. Electronically signed by: Fermin Traore MD 01/25/2025 12:34 PM EDT
--- OUTSIDE RECORDS SUMMARY | 2025-01-25 06:05 | XMS_ITS | Encounter Summary ---
Author Organization [facility] Address [address] [place] [address] Care Team Providers Care Semi Conductor Assembler Name Role Phone Kade Cummings MD Primary Care Provider [phone] Encounter Details Date Type Department Care Team ([facility] st Contact Info) Description 07/22/2019 Prep for Surgery [facility] OPHTHALMOLOGY [address] [place] [id number] Triston Fulton MD [address] [facility] [address] [place] [address] Social History Tobacco Use Types Packs/Day Years [...] on filedocumented in this encounter Care Teams Semi Conductor Assembler Relationship Specialty Start Date End Date Kade Cummings MD [address] [place] [address] PCP - General Internal Medicine 04/25/17 documented as of this encounter
--- OUTSIDE RECORDS SUMMARY | 2025-01-25 06:05 | XMS_ITS | Clinical Summary ---
Author Organization [facility] Address [address] [place] [address] Phone Care Team Providers Care Chief Hydroelectric Station Operator Name Role Phone Doreen Avalos Primary Care Provider [phone] Surgical History Surgery Date Site/Laterality Comments KNEE [...] osteoporosis. No priors. Study acquired on a [employer] densitometer. Imaging of the lumbar spine and [...] forosteoporosis. No priors. Study acquired on a [employer] densitometer. Imaging of thelumbar spine and [...] on 03/19/2022 11:18 AM.Workstation Name - [facility] [place]aut[place] Mcconnell MD IMG DXA PROCEDURES Final Re sult from Last 3 Months or Most Recently Relevant to Health Maintenance Insurance [facility] Member Subscriber Plan / Payer (Ef fective 2024-Present) Name:ABDI EMERSON Relation to Subscriber:Self Name:Abdi Emerson Payer ID:[id number] Type:Not on file Address: [address] [address] Care Teams Chief Hydroelectric Station Operator Relationship Specialty Start Date End Date Doreen Avalos PA PCP - General Physician Mobile Marketing Manager 11/22/14
--- OUTSIDE RECORDS SUMMARY | 2025-01-25 06:05 | XMS_ITS | Clinical Summary ---
Author Organization [facility] Address [address] [place] [address] Care Team Providers Care Commissioned Police Officer Name Role Phone Kade Cummings MD Primary Care Provider [phone] Allergies Active Allergy Reactions Criticality Noted Date Comments Erythromycin Unknown/Patient and Family Unable to Define Medium 07/22/2019 Lisinopril Cough Low 07/22/2019 Medications brimonidine (Alphagan P) 0.1 % Solution Administer 1 drop to both eyes 2 (two) times a day. 9 Active diltiazem (CARDIZEM CD) 180 MG 24 hr capsule Take 1 capsule by mouth daily. 9 Active folic acid (FOLVITE) 1 MG tablet Take 1 mg by mouth daily. Active losartan (COZAAR) 50 MG tablet Take 1 tablet by mouth daily. 9 Active methotrexate (RHEUMATREX) 2.5 MG tablet Take [...] 74 07/23/2019 4:30 PM EST Temperature 37.3 C (99.1 F) 07/23/2019 3:30 PM EST Respiratory Rate 12 07/23/2019 4:30 PM EST Oxygen Saturation 99% 07/23/2019 4:30 PM EST Inhaled Oxygen Concentration - - Weight - - Height - - Body Mass Index - - Plan of Treatment Health Maintenance Due Date Last Done Comments Advance Care Planning 1950 Hepatitis C Virus Screening 1950 COVID-19 Vaccine (#1) 1957 DTaP/Tdap/Td Vaccines (1 - Tdap) 1971 Pneumococcal Vaccines 50+ (1 of 2 - PCV) 1971 Zoster (Shingles) Vaccine (1 of 2) 1971 Mammogram 1992 Colonoscopy 1997 RSV Vaccine 60 years and old er and Patients (1 - Risk 60-74 years 1-dose series) 2012 DXA Bone Density (Females,Ag es 65 and older) 2017 Influenza Vaccine 12/24/2024 Hepatitis B Vaccines Aged Out No long er eligible based on patient's age to complete this topic Medical Devices Implanted Type Area Automobile Mechanic Helper Device Identifier Shelf Expiration Date Model / Serial / Lot Lens Iol 0 D +16 Loco Mod L Bcnvx 13mm 6mm Posterior Chamber - [id number] Implanted:Qty: 1 on 04/30/2017 [facility] [employer] [id number] / [id number] / Lens Iol 0 D +15.5 Loco Mod L Bcnvx 13mm 6mm Posterior - [id number] Implanted:Qty: 1 on 05/28/2017 by Ricardo Villarreal MD at [facility] [place] [employer] [id number] / [id number] / Insurance [employer] MGD MEDICARE Advance Directives * Full Code (Latest Code Status on File) Date Activated Date Inactivated Comments 07/23/2019 12:50 PM Care Teams Commissioned Police Officer Relationship Specialty Start Date End Date Kade Cummings MD [address] [place] [address] PCP - General Internal Medicine 04/25/17
--- OUTSIDE RECORDS SUMMARY | 2025-01-25 06:05 | XMS_ITS | Clinical Summary ---
Author Organization [facility] Address [address] [place] [address] Care Team Providers Care Antenna Engineer Name Role Phone Doreen Avalos PA-C Primary Care Provider [phone] Allergies Active Allergy Reactions Criticality Noted Date [...] age to complete this topic Care Teams Antenna Engineer Relationship Specialty Start Date End Date Doreen Avalos PA-C PCP - General Physician Computer Systems Auditor 11/22/14
[2025-01-25] MEDS: Lactated Ringers 1,000 ML 100 ML IVCONT (06:19)
--- NOTE | 2025-01-25 06:58 | PHA.MEDREC ---
Pharmacy Consult ? Medication Reconciliation Pharmacy has completed the medication reconciliation. Reviewed med rec done by nursing, matches claims.
--- NOTE | 2025-01-25 07:02 | MHC.SHP ---
Pre-Procedural Eval Section A - 24 Hr Update-Section A only Date of Service: 01/25/25 The patient is an INPATIENT: No Changes since office visit: No Cold of Flu in the past 2 weeks, No New Medical Problems, No Changes in Medication and No Patient answered all questions The patient has been examined within 24 hours of the surgical procedure. The History & Physical has been completed within 30 days and I have reviewed it.: No Section B - Complete if H&P > 30 days Chief Complaint: s/p L4-5 OLIF Allergies: Allergies Allergy/AdvReac Type Severity Reaction Status Date / Time erythromycin base Allergy Unknown Unknown Verified 01/25/25 05:58 lisinopril Allergy Unknown cough Verified 01/25/25 05:58 Review of Systems Sugical H&P ROS: Negative: Constitution, Cardiovascular, Respiratory, Neurological, Psychiatric, Hem-Onc, Allergic/Immunologic, Gastrointestinal, Genitourinary, Musculoskeletal, Integumentary, Endocrine and Eyes/Ears/Nose/Throat Exam Surgical H&P Exam: Normal: HEENT, Normal: Heart, Normal: Lungs, Normal: Extremities, Normal: Abdomen, Normal: Skin and Normal: Neurological (awake, alert,oriented x 3 ) Plan Diagnosis/Plan: Unchanged L4-5 Oblique lumbar interbody fusion Time Spent With Patient Time: Total time managing care of this patient today __6__ minutes.
--- NOTE | 2025-01-25 07:10 | HO.ANESPROP2 ---
Documented by User: Ninfa Rodriguez NP 01/21/25 09:04 HPI - Anesthesia Eval Consult details Narrative: 74yo F for L4-5 Oblique Lumbar Interbody Fusion, 01/25/25 Medically optimized per PCP No recent illness No CP/SOB with very limited activity d/t pain - feels debilitating since 11/2024 - prior to injury, walked for exercise PSVT: resolved 2001, r/t menopause symptoms Murmur: heard by one provider years ago, none on exam at [facility] Chronic venous insufficiency: Mild on exam, L>R. 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 PMF Active Problems Active Problems: All Active Problems Sacroiliitis (Acute) Mid back pain (Acute) Spondylolisthesis of lumbar region (Acute) Low back pain (Acute) Spinal stenosis of lumbar region with radiculopathy (Acute) Lumbar degenerative disc disease (Acute) Past Medical History Medical History Paroxysmal ventricular tachycardia Murmur Peripheral neuropathy Impaired fasting glucose Spinal stenosis of lumbar region Peripheral venous insufficiency Calcification of coronary artery Glaucoma Restless leg syndrome Mixed hyperlipidemia Lumbar degenerative disc disease Spinal stenosis of lumbar region with radiculopathy Low back pain GERD (gastroesophageal reflux disease) HTN (hypertension) Rheumatoid arthritis Plantar fasciitis, right Osteoporosis Knee pain Family History Family history of problems with anesthesia: No Surgical History Surgical History Hx of cataract surgery Hx of section Hx of detached retina repair Hx of arthroscopy of right knee Hx of tonsillectomy History of Problems with Anesthesia: No Social History Social History Are you a primary care consultant to a significant other at home: No Do you presently have visiting nurse or other home services: No Patient Tobacco Use Status: Never used Tobacco Use of substances other than those prescribed or required for medical reasons: No Have you been hit, kicked, punched, or otherwise hurt by someone within the past year? If so, by whom?: No Are you DNR?: Yes Advance Directives: No Advance Directives Information Provided: Yes Advance Directives on File: No Patient : No : No Poor oral hygiene: Yes Meds Allergies Allergy/AdvReac Type Severity Reaction Status Date / Time erythromycin base Allergy Unknown Unknown Verified 01/25/25 05:58 lisinopril Allergy Unknown cough Verified 01/25/25 05:58 Home Medications ?Medication ?Instructions ?Recorded ?Confirmed ?Last Taken ?Type diltiazem HCl 180 mg 180 mg PO BEDTIME 07/30/24 01/25/25 Unknown History capsule,extended release 24 hr folic acid 1 mg tablet 1 mg PO DAILY 07/30/24 01/25/25 Unknown History losartan 100 mg tablet 100 mg PO DAILY 07/30/24 01/25/25 Unknown History naproxen 500 mg tablet 500 mg PO DAILY PRN Inflammation 07/30/24 01/25/25 01/18/25 History timolol maleate 0.25 % eye drops 1 drp ophthalmic (eye) BID 07/30/24 01/25/25 01/25/25 05:15 History rosuvastatin 5 mg tablet 5 mg PO DAILY 01/18/25 01/25/25 Unknown History cyanocobalamin (vitamin B-12) 1,000 mcg PO DAILY 01/19/25 01/25/25 Unknown History 1,000 mcg tablet (Vitamin B-12) latanoprostene bunod 0.024 % eye 1 drp ophthalmic (eye) QPM 01/19/25 01/25/25 Unknown History drops (Vyzulta) magnesium glycinate 120 mg (as 240 mg PO DAILY 01/19/25 01/25/25 Unknown History glycinate) capsule methotrexate sodium 2.5 mg tablet 20 mg PO QWEEK 01/19/25 01/25/25 01/11/25 History zoledronic acid 5 mg/100 mL in 1 ea IV [id number] 01/19/25 01/25/25 12/09/24 History mannitol 5 %-water intravenous piggybck (Reclast) Exam Height,Weight and Vital Signs: Height 5 ft 8.5 in Weight 84.822 kg Last Vital Signs Pulse 59 01/19/25 10:49 Resp 16 01/19/25 10:49 BP 138/65 01/19/25 10:49 Pulse Ox 97 01/19/25 10:49 O2 Del Method Room Air 01/19/25 10:49 Pertinent Lab Results Pertinent Lab Results: CMP and CBC 12/2024 from outside facility WNL Lab Results 01/19/25 Range/Units 12:11 Blood Type A Positive Antibody Screen NEGATIVE Narrative Narrative: EKG 12/2024 NSR @ 70 Airway Mallampati Class: I TM Dist: >3cm Neck ROM: Full (sore) Loose/Missing/Broken Teeth: Yes (Permanent bridge upper) Heart: RRR Lungs: CTAB Assessment and Plan Assessment Anesthesia Assessment: Chart Reviewed Final Anesthetic Review Family History of Problems with Anesthesia: No History of Problems with Anesthesia: No Documented by User: Laury Barksdale DO 01/25/25 07:47 PMF Past Medical History Medical History Paroxysmal ventricular tachycardia Murmur Peripheral neuropathy Impaired fasting glucose Spinal stenosis of lumbar region Peripheral venous insufficiency Calcification of coronary artery Glaucoma Restless leg syndrome Mixed hyperlipidemia Lumbar degenerative disc disease Spinal stenosis of lumbar region with radiculopathy Low back pain GERD (gastroesophageal reflux disease) HTN (hypertension) Rheumatoid arthritis Plantar fasciitis, right Osteoporosis Knee pain Family History Family history of problems with anesthesia: No Surgical History Surgical History Hx of cataract surgery Hx of section Hx of detached retina repair Hx of arthroscopy of right knee Hx of tonsillectomy History of Problems with Anesthesia: No Social History Social History Are you a primary care consultant to a significant other at home: No Do you presently have visiting nurse or other home services: No Patient Tobacco Use Status: Never used Tobacco Use of substances other than those prescribed or required for medical reasons: No Have you been hit, kicked, punched, or otherwise hurt by someone within the past year? If so, by whom?: No Are you DNR?: Yes Advance Directives: No Advance Directives Information Provided: Yes Advance Directives on File: No Patient : No : No Poor oral hygiene: Yes Meds Allergies Allergy/AdvReac Type Severity Reaction Status Date / Time erythromycin base Allergy Unknown Unknown Verified 01/25/25 05:58 lisinopril Allergy Unknown cough Verified 01/25/25 05:58 Home Medications ?Medication ?Instructions ?Recorded ?Confirmed ?Last Taken ?Type diltiazem HCl 180 mg 180 mg PO BEDTIME 07/30/24 01/25/25 Unknown History capsule,extended release 24 hr folic acid 1 mg tablet 1 mg PO DAILY 07/30/24 01/25/25 Unknown History losartan 100 mg tablet 100 mg PO DAILY 07/30/24 01/25/25 Unknown History naproxen 500 mg tablet 500 mg PO DAILY PRN Inflammation 07/30/24 01/25/25 01/18/25 History timolol maleate 0.25 % eye drops 1 drp ophthalmic (eye) BID 07/30/24 01/25/25 01/25/25 05:15 History rosuvastatin 5 mg tablet 5 mg PO DAILY 01/18/25 01/25/25 Unknown History cyanocobalamin (vitamin B-12) 1,000 mcg PO DAILY 01/19/25 01/25/25 Unknown History 1,000 mcg tablet (Vitamin B-12) latanoprostene bunod 0.024 % eye 1 drp ophthalmic (eye) QPM 01/19/25 01/25/25 Unknown History drops (Vyzulta) magnesium glycinate 120 mg (as 240 mg PO DAILY 01/19/25 01/25/25 Unknown History glycinate) capsule methotrexate sodium 2.5 mg tablet 20 mg PO QWEEK 01/19/25 01/25/25 01/11/25 History zoledronic acid 5 mg/100 mL in 1 ea IV [id number] 01/19/25 01/25/25 12/09/24 History mannitol 5 %-water intravenous piggybck (Reclast) Exam Exam Date and Time: 01/25/25 0710 Height,Weight and Vital Signs: Height 5 ft 8.5 in Weight 84.822 kg Last Vital Signs Pulse 59 01/19/25 10:49 Resp 16 01/19/25 10:49 BP 138/65 01/19/25 10:49 Pulse Ox 97 01/19/25 10:49 O2 Del Method Room Air 01/19/25 10:49 Vital Signs Pulse Rate 59 01/19/25 10:49 Respiratory Rate 16 01/19/25 10:49 Blood Pressure 138/65 01/19/25 10:49 Pulse Oximetry 97 01/19/25 10:49 Oxygen Delivery Method Room Air 01/19/25 10:49 Temperature 97.8 F 01/25/25 06:06 Pulse Rate 59 01/25/25 06:06 Respiratory Rate 17 01/25/25 06:06 Blood Pressure 144/60 H 01/25/25 06:06 Pulse Oximetry 98 01/25/25 06:06 Oxygen Delivery Method Room Air 01/25/25 06:06 Airway Mallampati Class: II TM Dist: <=3cm Neck ROM: Limited (sore) Loose/Missing/Broken Teeth: Yes (Permanent bridge upper) Heart: S1S2 Assessment and Plan Assessment Anesthesia Assessment: Anesthesia Plan Discussed and Chart Reviewed Final Anesthetic Review Family History of Problems with Anesthesia: No History of Problems with Anesthesia: No NPO: Yes ASA Class: II Final Preanesthetic Review: No Changes in Pt Med Stat, Meds/Allgs Chart Reviewed, Consent Obtained/Reviewed and Anes Risks/Benef Reviewed Patient Risk: Low Procedure Risk: Intermediate Anesthetic Plan Anesthetic Plan: GA and Agree w/ Assess. and Plan Disposition: Standard PACU
--- NOTE | 2025-01-25 09:27 | P.OP_ITS ---
Operative Note Operative Note Date of Service: 01/25/25 Narrative: Preop Diagnosis: 1.) L4-5 lumbar spondylolisthesis with associated spinal stenosis 2.) Neurogenic claudication Procedure: 1) L4-5 discectomy, arthrodesis and implantation cage through an anterolateral, retroperitoneal approach 2) L4-5 posterior instrumented fusion 3) allograft 4) Injection of 10 cc of Exparel at the transverse process for a muscular erector spinae block and additional Exparel in paravertebral tissue for postop management Consent Informed Consent was obtained for this operation. I have explained the nature, purpose and benefits of the operation. I have discussed the risks and benefit of the operation including possible complications or adverse events with patient/family. Alternative(s) were discussed with the patient with their relative benefits and risks as well as the consequences of not accepting the operation were included in obtaining consent. Surgeon: DAKOTA INIGUEZ MD, PHD Procedure Assisted By: michael Echeverria Description of Procedure This patient is suffering from severe leg pain and back pain due to an L4-5 spondylolisthesis and associated spinal stenosis. The patient was offered an oblique lumbar interbody fusion L4-5. The procedure and complications were ex plained. The patient was consented. The patient was brought to the operating room and endotracheally intubated. The patient was turned in a lateral position with the left side up. Prep and drape was done followed by timeout. A small incision was made in the left lower abdominal quadrant. The muscle fascia was opened after which the 3 muscle layer was split to enter the retroperitoneal space. Dilators were docked in the anterior one third of the L4-5 disc space followed by a retractor. The retractor was opened. The L4-5 disc space was exposed. An annulotomy was done after which an elevator Gregory was used to release the disc material from its endplates and to perforate the contralateral side. A partial discectomy was done. An 8 mm, 10 mm and 12 mm with 6 degree lordosis height trial implant was inserted. The discectomy was completed. The endplates were prepared. An 12 x 45 mm with 6 degree lordosis 4 web cage filled with allograft was inserted into the disc space under fluoroscopic guidance. This resulted in correction of the spondylolisthesis and increase of the disc height. The retractor was removed. Hemostasis was done. The incision was closed in 2 layers. Steri-Strips used to approximate incision. An OpSite with Tegaderm was used to cover the incision. This marked first part of the procedure. The patient was turned prone on the Jose M spine table. 2C arms were installed for fluoroscopy. Prep and drape was done followed by a second timeout. Injection of 10 cc of Exparel at the bilateral L4 transverse processi for a muscular erector spinae block. Two paramedian incisions were made lateral from the L4 and L5 pedicles. The muscle fascia was opened after which the muscle layer was split bluntly to expose the posterolateral gutter. The following steps were taken. A pediguard tap was used to create a transpedicular trajectory into the vertebral body. A K wire was placed. A specially designed instrument was advanced over the K wire to decorticate the posterolateral gutter in preparation for the posterolateral fusion. A pedicle screw was advanced over the K wire and the K wire was removed. The steps were done for the bilateral L4 and L5 pedicles. A total of 4 screws were placed with a diameter of 7.5 x 45 mm. Pedicle screws were connected with 45 mm ernestina bilaterally and locked down with locking caps. The extension towers were removed. The posterolateral gutter was filled with allograft to complete the posterolateral L4-5 fusion Hemostasis was done and the incision was closed in 2 layers. Steri-Strips were used to approximate the incision. An OpSite with tegaderm was used to cover the incision. All sponge and needle counts were correct. Patient was extubated and transferred in stable is to recovery room. Anesthesia: General Estimated Blood Loss (ml): 20 mL Duration of Surgery: 90 minutes Complications: None Postoperative Plan: Admit to inpatient for clinical observation
[2025-01-25] MEDS: oxyCODONE HCl Immed Release 5 MG TABLET PO (12:15)
--- NOTE | 2025-01-25 15:08 | PC.NURSE ---
Addendum entered by Faraz Colón RN 01/26/25 11:32: d/c vitals 97.4F, RR 16, Pulse 58, BP 130/58. O2 95% room air Addendum entered by Faraz Colón RN 01/25/25 15:49: informed MD of pt's temp and slurred speech Original Note: per pocket secretary assembler, pt was str cath'ed for 350cc
[2025-01-25] MEDS: dilTIAZem HCL CD 180 MG CAP.ER.24H PO (19:21)
[2025-01-25] MEDS: oxyCODONE HCl Immed Release 5 MG TABLET 10 MG PO (19:37)
[2025-01-25] MEDS: timoloL maleate 0.5 % Oph Sol 5 ML DRBTL 1 DROP EYE-BOTH (19:38)
[2025-01-25] MEDS: LATANOPROSTENE BUNOD 0.024% 1 EACH EYE-BOTH (19:38)
[2025-01-26 03:21] VITALS: BP 147/67; PULSE 65; RESP 16; TEMP 36.1; O2SAT 96
--- NOTE | 2025-01-26 03:29 | PC.NURSE ---
pt had meds in pharmacy that will need to be returned upon discharge
[2025-01-26] MEDS: oxyCODONE HCl Immed Release 5 MG TABLET 10 MG PO (06:59)
[2025-01-26 07:41] VITALS: BP 139/66; PULSE 66; RESP 16; TEMP 36.3; O2SAT 96
--- NOTE | 2025-01-26 08:13 | PM.DS ---
DS: Providers Provider Date of Service: 01/25/25 Date of admission: 01/25/25 05:53 Date of discharge: 01/26/25 Primary care physician: ANTONIETTA Graham Admitting clinician: Misbah Cuellar DS: Diagnosis Discharge Diagnosis (1) Spinal stenosis of lumbar region with radiculopathy: Status: Acute DS: Summary Hospital Course Hospital Course: Patient was admitted for elective lumbar fusion surgery L4-5. Patient underwent a procedure without complication, was transferred to the PACU and then subsequently to 2/3 floor where she had began a recovery. Diet was advanced without any problem. She was allowed to get up and walk around, was able to get to the bathroom and void without any issues. First postoperative night was unremarkable. She would have some pain and discomfort which was treated with oxycodone, IV Toradol and IV Tylenol. The patient's saw physical therapy on postoperative day 1., was able to clear to go home with her walker. There were no complications with her stay. The patient was given discharge instructions and activity guidelines and will follow up with us in 3 weeks. Time Attestation Discharge Coordination Time (in mins): 5 minutes Quality: Safe Use of Opioids Does Pt have an Active Cancer Diagnosis on the Problem List?: No Quality: Stroke Does the patient have a stroke diagnosis?: No Physical Exam Vital Signs: Vital Signs: Last Vital Signs Temp 97.4 F 01/26/25 07:41 Pulse 66 01/26/25 07:41 Resp 16 01/26/25 07:41 BP 139/66 01/26/25 07:41 Pulse Ox 96 01/26/25 07:41 O2 Del Method Room Air 01/26/25 07:41 O2 Flow Rate 2 01/25/25 12:13 BMI result Body Mass Index 28.3 Discharge Plan Discharge Anticipated Discharge Date/Time: 01/26/25 10:58 Patient Disposition: Home, Self-Care Discharge Diagnosis: Status post L4-5 oblique lumbar interbody fusion Referrals: Doreen Avalos PA [Primary Care Provider, Medical] - 1 Week Discharge Medications: New oxycodone 5 mg tablet See Rx Instructions .ROUTE .COMPLEX PRN (Reason: pain) Qty: 30 0RF Rx Instructions: 1-2 tabs po q4 hours prn pain; Partial Fill upon patient request. docusate sodium [Colace] 100 mg capsule 100 mg PO BID Qty: 20 0RF methocarbamol 500 mg tablet 500 mg PO TID PRN (Reason: spasm) Qty: 30 0RF Continued rosuvastatin 5 mg tablet 5 mg PO DAILY Vyzulta 0.024 % Drops 1 drp OPHTHALMIC (EYE) QPM cyanocobalamin (vitamin B-12) [Vitamin B-12] 1,000 mcg Tablet 1,000 mcg PO DAILY magnesium glycinate 120 mg Capsule 240 mg PO DAILY zoledronic [id number] [Reclast] 5 mg/100 mL Piggyback 1 ea IV [id number] diltiazem HCl 180 mg capsule,extended release 24hr 180 mg PO BEDTIME folic acid 1 mg tablet 1 mg PO DAILY losartan 100 mg tablet 100 mg PO DAILY naproxen 500 mg tablet 500 mg PO DAILY PRN (Reason: Inflammation) timolol maleate 0.25 % drops 1 drp ophthalmic (eye) BID Held methotrexate sodium 2.5 mg tablet 20 mg PO QWEEK Hold Instructions: Resume on 02/09/25. You may resume 2 weeks after surgery if your wounds are healed Patient Comments: patient takes every Friday Discharge Orders: Discharge Order (Routine); Ordered 01/26/25 Ordered By: Vinod Lomax Diet: Advance to usual diet Activity on Discharge: As tolerated Stand Alone Forms: Patient Portal Discharge page Print Language: Belarusian Activity Restrictions/Additional Instructions: After your spinal surgery we ask you to observe the following restrictions/guidelines: Activity: It is normal to feel some discomfort as you increase your activity, but that will improve with time. We ask you avoid heavy lifting or acitivities that cause pain. As a general rule, 8lbs is a safe limit for lifting right after surgery. Walk as much as you feel comfortable but not to exhaustion. You will feel extra tired the first few days after surgery. Stay well hydrated. It is OK to walk up and down stairs You may return to driving when you are off narcotics (such as vicodin, oxycodone, dilaudid, etc), and you are back to normal functional capacity. If you have any concerns please check with office before driving. Return to work is specific to each patient and each surgery, so please speak with your doctor/PA at first follow up. Please bring paperwork such as FMLA at that time if you need it filled out. Medications: For optimum pain control, it is best to start with a combination of 500 mg of Tylenol every 4 hours with 600 mg of Motrin every 8 hours, and use narcotics as needed in between for breakthrough pain. We will give you a short supply of narcotics after surgery (usually one weeks worth). If you need more please call the office but do not use more than prescribed. You will need to give our office 48 hours notice if you need narcotics refilled and we do not fill narcotics on weekends or evenings. If you are on a narcotic, it is a good idea to take a stool softener such as colace or senna to avoid constipation If you take blood thinner such as aspirin, Plavix, Coumadin, Effient, Eliquis etc for conditions such as Afib, DVT, Pulmonary embolus, coronary disease, stents etc please speak with your surgeon about specific details as to when you can resume these medications. Follow up: Please call the office, , after surgery to arrange a 3 week follow up for wound check. Wound Care: You may remove your dressing on the first day after surgery. ?You may ?leave open to air. Please do not remove the steri strips underneath. they will fall off on their own in one week. IT IS NORMAL FOR THE WOUND TO OOZE OR BE BLOODY FOR A FEW DAYS AFTER SURGERY. ?IF THIS HAPPENS JUST PLACE NEW DRESSING OVER IT TO AVOID STAINING CLOTHES. You may shower on post op day # 1 We ask that you do not let the water soak the wound. If it does get wet, just towel dry lightly. Please do not scrub your incision or place any type of chemical/ointment on the wound. No tub baths, pools or jacuzzis for one month. If you have any leaking or redness from your wound, or fevers, please call office Care Plan Goals: Discharge home Health Concerns: None Plan of Treatment: Follow up in the office in 3 weeks Assessment: Stable
--- NOTE | 2025-01-26 08:21 | HO.POSTANES ---
Post Anesthesia Evaluation Post Anesthesia Evaluation Date of Service: 01/26/25 Vital Signs: Vital Signs Temp Pulse Resp BP Pulse Ox O2 Del Method 01/26/25 07:41 97.4 F 66 16 139/66 96 Room Air 01/26/25 03:21 96.9 F 65 16 147/67 H 96 Room Air Anesthesia: General Mental Status: Awake Pain Control: Satisfactory Nausea/Vomiting: None Hydration: Adequate Anesthesia-Related Issues: No Anes. Related Issues
[2025-01-26] MEDS: timoloL maleate 0.5 % Oph Sol 5 ML DRBTL 1 DROP EYE-BOTH (08:27)
--- NOTE | 2025-01-26 09:02 | MHC.CM.PN ---
Addendum entered by Martha Valentine 01/26/25 11:37: PT recommends Home self care. Patient is discharged to home self care. She has arranged for her spouse to provide transportation home. Original Note: IMM 01/26/25 S/P L-4-5 YAEL Lives with spouse She was independent prior to 11/28/24 DME Cane,Walker, Rollator, Shower bench, Travel WC Grab bars + hand held shower DP home pending PT eval today. Patients spouse will provide transportation home.
== END 2025-01-26 11:25 | disposition home or self-care (01) | DRG 451 ==
LOC: HO.SSSA 06:04 → HO.S3 11:21
PROVIDERS: Admitting Provider Neurological Surgery; PCP Physician Assistant Medical; Visit Provider Neurological Surgery
PROC: 0SG00A0 Fusion of Lumbar Vertebral Joint with Interbody Fusion Device, Anterior Approach, Anterior Column, Open Approach (ICD-10-PCS; principal; 2025-01-25 07:30)
DX: M48.062 Spinal stenosis, lumbar region with neurogenic claudication (principal); M43.16 Spondylolisthesis, lumbar region; M06.9 Rheumatoid arthritis, unspecified; Z79.631 Long term (current) use of antimetabolite agent; Z79.899 Other long term (current) drug therapy
CPT/HCPCS: 86850; 86900; 86901; 97116; 97161; 97530; C1713; J0131; J0665; J0666; J0690; J1100; J1171; J1885; J2003; J2405; J2704; J3010; L8699

== ENCOUNTER → 2025-01-25 05:53 | Outpatient (BNV) | payer MEDICARE, SELFPAY | PROVIDERS: Admitting Provider Neurological Surgery; PCP Physician Assistant Medical; Visit Provider Neurological Surgery | DX: M48.062 Spinal stenosis, lumbar region with neurogenic claudication (principal) | CPT/HCPCS: 20930; 22558; 22612; 22840; 22853; 99499 ==

== ENCOUNTER 2025-02-15 13:34 | Outpatient (AMB) | payer MEDICARE, SELFPAY ==
--- NOTE | 2025-02-15 13:51 | A.SPINEOV_ITS ---
Intake Visit Reasons: 1st post op Intake Note: Mrs. Bnada is here today for her 1st post op. Terrazzo Finisher Required: No Allergies erythromycin base Allergy (Unknown, Verified 02/15/25 13:51) Unknown lisinopril Allergy (Unknown, Verified 02/15/25 13:51) cough Assessment & Plan Assessment & Plan (1) Low back pain: Code(s): M54.50 - Low back pain, unspecified Category: Medical Plan Procedure: L4-5 OLIF Isabel comes in today for her 1st postoperative appointment after having an L4-[address] Cuellar a few weeks ago. She reports that her severe cramping/burning pain has resolved since her surgery. She still gets some low back pain, and still has some burning/tingling of her bilateral lower extremities that waxes/wanes throughout the day. Given this, she has remained fairly active in his able to walk around her home and get out of the house with the assistance of a cane. She is completing her basic activities of daily living without much issue. She is accompanied by her to this visit today, and they both asked several questions regarding the postoperative healing course, including the surgical approach, the instrumentation used, and the healing course. I answered all of her questions to the best of my ability. No new neurological deficits. The patient ambulates well and rises from seated position without difficulty. Her posterior and lateral incision sites are closed and well healing. I would like to follow up with Isabel again in 6 weeks for her 2nd postop visit with a set of x-rays Chico Cuellar MD,PhD [facility] Coding Level of Care Code Global (65748) Diagnoses Low back pain M54.50
--- OUTSIDE RECORDS SUMMARY | 2025-02-15 16:41 | XMS_ITS | Clinical Summary ---
Author Organization Formerly [facility] Address [address] [place] [id number] Care Team Providers Care Multifocal Lens Inspector Name Role Phone Kade Cummings MD Primary Care Provider [phone] Allergies Active Allergy Reactions Criticality Noted Date [...] this topic Medical Devices Implanted Type Area Cuff Turner Device Identifier Shelf Expiration Date Model / Serial / Lot Lens Iol 0 D +16 Loco Mod L Bcnvx 13mm 6mm Posterior Chamber - [id number] Implanted:Qty: 1 on 04/30/2017 by [facility] [employer] [employer] [id number] / [id number] / Lens Iol 0 D +15.5 Loco Mod L Bcnvx 13mm 6mm Posterior - [id number] Implanted:Qty: 1 on 05/28/2017 by Ricardo Villarreal MD at [facility] [place] [employer] [id number] / [id number] / Insurance [employer] MGD MEDICARE Advance Directives * Full Code (Latest Code Status on File) Date Activated Date Inactivated Comments 07/23/2019 12:50 PM Care Teams Multifocal Lens Inspector Relationship Specialty Start Date End Date Kade Cummings MD [address] [place] [id number] PCP - General Internal Medicine 04/25/17
--- OUTSIDE RECORDS SUMMARY | 2025-02-15 16:41 | XMS_ITS | Clinical Summary ---
Author Organization [facility] Address [address] [place] [address] Phone Care Team Providers Care Paper Handler Name Role Phone Doreen Avalos Primary Care Provider [phone] Surgical History Surgery Date Site/Laterality Comments KNEE [...] osteoporosis. No priors. Study acquired on a Hole 19 densitometer. Imaging of the lumbar spine and [...] reviewed and signed by : Dr. Amie العرقاي on 03/19/2022 11:18 AM. Workstation Name - [facility] Procedure Note Amie العراقي MD - 05/17/2022 Bone density study Indication and risk factors: Postmenopausal female. Screening forosteoporosis. No priors. Study acquired on a Phantom Advance densitometer. Imaging of thelumbar spine and [...] on 03/19/2022 11:18 AM.Workstation Name - [facility] Gautam Mcconnell MD IMG DXA PROCEDURES Final Re sult from Last 3 Months or Most Recently Relevant to Health Maintenance Insurance [facility] ([facility]) Care Teams Paper Handler Relationship Specialty Start Date End Date Doreen Avalos PA PCP - General Physician Summer Child Caregiver 11/22/14
--- OUTSIDE RECORDS SUMMARY | 2025-02-15 16:41 | XMS_ITS | Clinical Summary ---
Author Organization [facility] Address [address] [place] [address] Care Team Providers Care Southeast Regional Sales Manager Name Role Phone Doreen Avalos PA-C Primary [...] Covid-19 (Pfizer) Dilution Required 08/29/2020,0 08/08/2020 [facility] 04/14/2012 Family History Medical History Relation [...] Vaccine (1 of 1 - PCV) 2017 Osteoporosis Screening (DEXA Scan) 03/19/2024 03/19/2022, 12/30/2019 Depression Screening 11/02/2024 11/03/2023, 10/30/2022, 10/25/2021, Additional history exists Fall Risk Assessment 11/02/2024 11/03/2023, 10/30/2022, 10/25/2021, Additional history exists Preventative Health Evaluation 11/02/2024 11/03/2023, 11/03/2023, 10/30/2022, Additional history exists COVID-19 Vaccine ( season) 2025 08/29/2020, 08/08/2020 Influenza Vaccine (#1) 2025 Breast Cancer Screening [...] age to complete this topic Care Teams Southeast Regional Sales Manager Relationship Specialty Start Date End Date Doreen Avalos PA-C PCP - General Physician Material Handler 11/22/14
--- OUTSIDE RECORDS SUMMARY | 2025-02-15 16:41 | XMS_ITS | Encounter Summary ---
Author Organization [facility] Address [address] [place] [address] Care Team Providers Care Rail Project Engineer Name Role Phone Kade Cummings MD Primary Care Provider Encounter Details Date Type Department Care Team ([facility] st Contact Info) Description 07/22/2019 Prep for Surgery [facility] O[facility]THALMOLOG[facility] [address] [place] [phone] Triston Fulton MD 85 [facility] [address] [place] [address] Social History Tobacco Use Types Packs/Day Years [...] on filedocumented in this encounter Care Teams Rail Project Engineer Relationship Specialty Start Date End Date aKde Cummings MD [address] [place] [address] PCP - General Internal Medicine 04/25/17 documented as of this encounter
== END 2025-02-15 14:34 | disposition home or self-care (01) ==
LOC: HO.HNS 13:35
PROVIDERS: PCP Physician Assistant Medical; Visit Provider Physician Assistant
DX: M54.50 Low back pain, unspecified (principal)
CPT/HCPCS: 99024

== ENCOUNTER → 2025-02-15 13:34 | Outpatient (BNVA) | payer MEDICARE, SELFPAY | PROVIDERS: PCP Physician Assistant Medical; Visit Provider Physician Assistant | DX: Z47.89 Encounter for other orthopedic aftercare (principal); M54.50 Low back pain, unspecified; Z98.890 Other specified postprocedural states | CPT/HCPCS: 99212 ==

== ENCOUNTER 2025-03-31 08:30 | Outpatient (REF) | payer MEDICARE, SELFPAY ==
--- OUTSIDE RECORDS SUMMARY | 2021-05-02 06:30 | XMS_ITS | Continuity of Care Document ---
Author Organization [facility] Address [address] [address] Phone Care Team Providers Care Network Security Administrator Name Role Phone Lencho Still MD Unavailable Unavailabl e Allergies, Adverse Reactions, Alerts Substance Reaction Status Criticality lisinopril Active No Information erythromycin base Active No Informa tion Medications Medication Instructions Dosage Effective Dates (start - stop) Status Comments XATMEP (unknown strength) Not Available - Active FOLIC ACID (unknown strength) Not Available - Active NAPROSYN (unknown strength) Not Available - Active LOSARTAN POTASSIUM (unknown strength) Not Available - Active DILT-XR (unknown strength) Not Available - Active EZALLOR SPRINKLE (unknown strength) Not Available - Active ALPHAGAN P (unknown strength) Not Available - Active Procedures Procedure Date Office/Outpt E&M Established 15 Mins Apr Duplex Scan-extrem Veins; Office/Outpt E&M Established 15 Mins Oct Duplex Scan-extrem Veins; Comp Office/Outpt E&M Established 15 Mins Jul Duplex Scan-extrem Veins; / Duplex Scan-extrem Veins; / VenaSeal Endovenous Ablation, 1st Vein F Office/Oupt E&M New Pt 45 Mins Duplex Scan-extrem Veins; Comp Add'l Supplies Duplex Scan-extrem Veins; Uni/ Dec-14-20 20 Add'l Supplies Advance Directives Directive Yes / No Effective Date File Name No Information Encounters Encounter Description Practice Location Reason(s) For Visit Diagnoses Date Provider Providers Copied on Encounter Office/Outpt E&M Established 15 Mins [facility], [address], [id number], tel:[phone] [place] Body mass index (BMI) 28.0-28.9, adultCramp and spasmVenous insufficiency (chronic) (peripheral) 1 Cheko Musa. [address] [place], [facility] [address], [place], [address], [place]. tel: [phone] Referring Provider: Doreen Avalos, [address] [facility], [place], [address]. tel:[phone] [facility], [address] [place] [address], [id number], [place] [phone] [place] - [place] Chronic venous hypertension w inflammation of r low extremVaricose veins of right lower extremities with pain 1 Cheko Musa. [address], [address], [place], [address], [place]. tel: [phone] Referring Provider: Doreen Avalos, [address] [facility], [place], [address]. tel:[phone] Office/Outpt E&M Established 15 Mins [facility], [address] [place] [address], [id number], [place] [phone] [place] - [place] Body mass index (BMI) 28.0-28.9, adultVenous insufficiency (chronic) (peripheral) 1 Cheko Musa. [address], [address], [place], [address], [place]. tel:[phone] Referring Provider: Doreen Avalos, [address] [facility], [place], [address]. tel:[phone] [facility], [address] [place] [address], [id number], [place] tel:[phone] VR - [place] - [place] Chronic venous htn w inflammation of bilateral low extrm Thomas-0 7-202 1 Cheko Musa. [address], [address], [place], [address], [place]. tel: [phone] Referring Provider: Bridgette Carvajal RD, [place], [address]. tel:[phone] Office/Outpt E&M Established 15 Mins [facility], [address] [place] [address], [id number], [place] tel:[phone] - [place] - [place] Body mass index (BMI) 28.0-28.9, adultVenous insufficiency (chronic) (peripheral)Asym ptomatic varicose veins of right lower extremity Jul-0 8- 1 Cheko Musa. [address], [address], [place], [address], [place]. tel: [phone] Referring Provider: Bridgette Carvajal [address], [place], [address]. tel:[phone] [facility], [address] [place] [address], [place], [place], [id number], [place] tel:[phone] VR - [place] - [place] Chronic venous hypertension w oth comp of r low extrem Jul-0 8- 1 Cheko Musa. [address], [address], [place], [address], [place]. tel: [phone] Referring Provider: Bridgette Carvajal [address], [place], [address]. tel:[phone] [facility], [address] [place] [address], [place], [place], [id number], [place] tel:[phone] [place] - [place] Encntr for f/u exam aft trtmt for cond oth than malig neoplmChronic venous hypertension w oth comp of r low extrem 1 Cheko Musa. [address], [address], [facility] [place], [address], [place]. tel: [phone] Referring Provider: Doreen Avalos, [address] [facility], [place], [address]. tel:[phone] [facility], [address] [place] [address], [id number], [place] tel:[phone] VR - [place] - [place] Varicose veins of right lower extremity with inflammation 1 Cheko Musa. [address], [address], [place], [address], [place]. tel: [phone] Referring Provider: Doreen Avalos, [address] [facility], [place], [address]. tel:[phone] Office/Oupt E&M New Pt 45 Mins [facility], [address] [place] [address], [id number], [place] tel:[phone] [place] - [place] Body mass index (BMI) 28.0-28.9, adultEssential (primary) hypertensionVeno us insufficiency (chronic) (peripheral)Vari cose veins of bi low extrem w oth complications 1 Cheko Musa. [address] [place], [address], [facility] [place], [address], [place]. tel: [phone] Referring Provider: Doreen Avalos, [address] [facility], [place], [address]. tel:[phone] [facility], [address] [place] [address], [id number], [place] tel:[phone] [place] - [place] - [place] Chronic venous htn w oth comp of bilateral low extrm 1 Cheko Musa. [address], [address], [facility] [place], [address], [place]. tel:[phone] Referring Provider: Doreen Avalos, [address] [place], [address]. tel:[phone] Physician for [facility]in [facility], [address] [place] [address], [id number], tel:[phone] VR - [place] - [place] Varicose veins of right lower extremities with pain 0 Virgie DAMON Thang. [address] [place] [address], [facility] [address], [id number] , . tel: [phone] Referring Provider: Doreen Avalos, [address] [place], [address]. tel:[phone] Family History Family Member Type Diagnosis Age At Onset Sister Problem (finding) Hypertension Father Problem (finding) Varicose Veins Mother Problem (finding) Edema Mother Problem (finding) Venous insufficiency Sister Problem (finding) Venous insufficiency Mother Problem (finding) Varicose Veins Mother Problem (finding) Hypertension Mother Problem (finding) Congestive heart failur e Sister Problem (finding) Varicose Veins Sister Problem (finding) Edema Mother Problem (finding) Stroke Father Problem (finding) Venous insufficiency Payers Payer name Insurance type Covered constitution party ID Authoriza bee(s) [facility] Medicare A dvantage X CI [id number] Social History Type Description Quantity Date Captured Comments Alcohol Use Details No Caffeine Use Details Unknown Tobacco Use Status Ex-cigarette smoker Smoking Status Former smoker Smoking Tobacco Use Details Cigarette: Age Stopped: 42 Cigarette: No Details Available Sex Female Vital Signs Date / Time: Height Weight BMI Pulse Rate Blood Pressure Temperature Respiratory Rate Body Surface Area Head Circumference Head Circ. Percentile Wt./Roman. Percentile BMI percentile Pulse Ox Inhaled Ox 11:17 AM 68.00 in 83.915 kg (185.00 lbs) 28.1 3 kg/m eter (2) 72 /min 134/70 mm[Hg] 20 /min Chief Complaint And Reason For Visit No Information Reason For Referral Reason For Referral No Information Plan Of Treatment Date Type Action Status Goal Diet education completed Goal Tobacco cessation counseling completed Goal Diet education completed Goal Tobacco cessation counseling completed Goal Diet education completed Goal Tobacco cessation counseling completed Goal Diet education completed Goal Diet education completed Goal Tobacco cessation counseling completed Referral Ordered: Duplex Scan-extrem Veins; Uni/ Right leg ordered Referral Ordered: Doreen Avalos timeframe: 1 Month. (related to Essential (primary) hypertension) ordered Referral Ordered: Duplex Scan-extrem Veins; Comp Bilateral leg ordered History Of Present Illness Encounter Date Complaint History Of Prese nt Illness Not Listed Varicosities Pain Heaviness Cramping Fatigue Varicosities Pain Swelling Skin Changes Heaviness Cramping Functional Status Date Functional Assessmen t No Information Instructions Date Instruction Additional Infor mation Diet education Related to Body mass index [BMI] 28.0-28.9, adult Giving Encouragement to Exercise Related to Body mass index [BMI] 28.0-28.9, adult Patient education booklet given Related to Cramping Patient education booklet given Related to Venous Insufficiency (Chronic / Peripheral) Diet education Related to Body mass index [BMI] 28.0-28.9, adult Giving Encouragement to Exercise Related to Body mass index [BMI] 28.0-28.9, adult Continue compression stocking us e Related to Venous Insufficiency (Chronic / Peripheral) Diet education Related to Body mass index [BMI] 28.0-28.9, adult Giving Encouragement to Exercise Related to Body mass index [BMI] 28.0-28.9, adult Diet education Related to Body mass index [BMI] 28.0-28.9, adult Giving Encouragement to Exercise Related to Body mass index [BMI] 28.0-28.9, adult Lifestyle education Related to E ssential (primary) hypertension Diet education Related to Essen tial (primary) hypertension Exercise education Related to Es sential (primary) hypertension Patient education booklet given Related to Venous Insufficiency (Chronic / Peripheral) Continue compression stocking us e Related to Venous Insufficiency (Chronic / Peripheral) Assessments Type Assessment Date assessment Body mass index [BMI] 28.0-28.9, adult assessment Cramp and spasm assessment Venous insufficiency (chronic) ( peripheral) Patient Care Teams Name Effective Dates (start - stop) Status Members No Information
--- OUTSIDE RECORDS SUMMARY | 2024-11-08 19:00 | XMS_ITS | Continuity of Care Document ---
Author Organization [facility] Address [address] [place] [address] Phone Care Team Providers Care Forest Management Teacher Name Role Phone Mark DAMON, INDIRA, TAL, [...] Diagnoses Date Provider Providers Copied on Encounter [place] [facility], [address] [place] [address] Dr Ribeiro 1000[facility] 1000[place], [id number], tel:[phone] CVR - [facility] No Information 5 Mark DAMON RVT, TAL Martin. [address] [place] [address], [id number], [place]. tel:[phone] Referring Provider: Doreen Avalos [address] [place] [address], [facility]. tel:[phone] Office/Outpt E&M Established 25 Mins- CT & [place] [facility], [address] [place] [address] Dr Ribeiro 1000[facility] 1000[place]rice [place], [id number], tel:[phone] CVR [facility] Chronic venous hypertension (idiopathic) with other complications of bilateral lower extremity 5 Mark DAMON RVT, TAL Matrin. [address] [place] [address], [id number], [place]. tel:[phone] Referring Provider: Bridgette Carvajal [place], [place], [facility]. tel:[phone] [facility] [facility], [address] [place] [address] Dr Ribeiro 1000[facility] 1000[place]rice [place], [id number], [place] tel:[phone] CVR [facility] Chronic venous hypertension (idiopathic) with other complications of bilateral lower extremity 5 Mark DAMON RVT, RPVI Robert. [address] [place] [address], [id number], [place]. tel:[phone] Referring Provider: Bridgette Carvajal [place], [facility]. tel:[phone] Office/Outpt E&M Established 15 Mins- [place] & [place] [facility] MD LEVI, [address] [place] [address] Dr Ribeiro 1000SuBeatrice velasquez [place], [id number], [place] tel:[phone] [place] - [place] [facility] Venous insufficiency (chronic) (peripheral)Es sential (primary) hypertension 4 Malina Christensen. [address] [place] [address], [facility] [place], [id number], [place]. tel:[phone] Referring Provider: Doreen Avalos [address] [place] [address], [facility]. tel:[phone] [facility]I, [address] [place] [address] Dr Ribeiro 1000Beatrice velasquez MD, [id number], [place] tel:[phone] CVR - [facility] Chronic venous hypertension (idiopathic) with other complications of bilateral lower extremity 4 Delia Jackelin. [address] [place] [address] 205, [place], [place], [id number], [place]. tel:[phone] Referring Provider: Doreen Avalos [address] [place] [address], [facility]. tel:[phone] [facility], [address] [place] [address] Dr Ribeiro 1000Beatrice velasquez [place], [id number], [place] tel:[phone] [place] - [place] [facility] Localized edema 4 Mark DAMON RVT, RPVI Robert. [address] [place] [address], [place], [id number], [place]. tel:[phone] [facility] MD LEVI, [address] [place] [address] Dr Ribeiro 1000SuBeatriec velasquez MD, [id number], [place] tel:[phone] [place] [facility] Encounter for follow-up examination after completed treatment for conditions other than malignant neoplasmPain in right lower leg 4 Mark DAMON RVT, RPVI Robert. [address] [place] [address], [facility] [place] [id number], [place]. tel:[phone] Referring Provider: Doreen Avalos [address] [place] [address], [facility]. tel:[phone] [facility], [address] [place] [address] Dr Riebiro 1000Suite Beatrice Rizvi MD, [id number], [place] tel:[phone] [facility] [facility] Encounter for follow-up examination after completed treatment for conditions other than malignant neVaricose veins of right lower extremity with pain 4 Mark DAMON RVT, TAL Martin. [address] [place] [address], [facility] [place], [place], [id number], [place]. tel:[phone] Referring Provider: Bridgette Carvajal [place], [facility]. tel:[phone] [facility], [address] [place] [address] Dr Ribeiro 1000Suite Beatrice Rizvi [place], [id number], [place] tel:[phone] [place] [facility] Varicose veins of right lower extremity with other complications 4 Devin Schaeffer. [address] [place] [address], [facility] [place], [id number], [place]. tel:[phone] Referring Provider: Bridgette Carvajal [place], [facility]. tel:[phone] [facility], [address] [place] [address] Dr Ribeiro 1000Suite Beatrice Rizvi MD, [id number], [place] tel:[phone] [place] [facility] Varicose veins of right lower extremity with other complications 4 Mark DAMON RVT, TAL Martin. [address] [place] [address], [facility] [place], [id number], [place]. tel:[phone] Referring Provider: Bridgette Carvajal [place], [facility]. tel:[phone] [facility], [address] [place] [address] Dr Ribeiro 1000Suite Beatrice Rizvi MD, [id number], [place] tel:[phone] [facility] [facility] Venous insufficiency (chronic) (peripheral) 4 Mark DAMON RVT, RPVI Robert. [address] [place] [address], [place] [address], [facility] [place], [id number], [place]. tel:[phone] [facility] Esp[facility], [address] [place] [address] Dr Ribeiro 1000SuBeatrice velasquez MD, [id number], [place] tel:[phone] [place] [facility] Encounter for follow-up examination after completed treatment for conditions other than malignant neoplasmPain in left leg 4 Mark DAMON RVT, RPVI Robert. [address] [place] [address], [facility] [place], [id number], [place]. tel:[phone] Referring Provider: Doreen Avalos [address] [place] [address], [id number]. tel:[phone] [facility], [address] [place] [address] Dr Ribeiro 1000Suite Beatrice Rizvi [place], [id number], [place] tel:[phone] [place] - [place] [facility] No Information 4 Mark DAMON RVT, RPVI Robert. [address] [place] [address], [facility] [place], [id number], [place]. tel:[phone] Referring Provider: Doreen Avalos [address] [place] [address], [address]. tel:[phone] [facility], [address] [place] [address] Dr Ribeiro 1000Suite Beatrice Rizvi [place], [id number], [place] tel:[phone] CVR - [facility] Varicose veins of left lower extremity with other complications 4 Mark DAMON RVT, RPVI Robert. [address] [place] [address], [place], [id number], [place]. tel:[phone] Referring Provider: Doreen Avalos [address] [place], [address]. tel:[phone] [facility], [address] [place] [address] Dr Ribeiro 1000SuBeatrice velasquez MD, [id number], tel:[phone] [facility] No Information 4 Mark DAMON RVT, TAL Martin. [address] [place] [address], [facility] [place], [id number], [place]. tel:[phone] Office/Outpt E&M Established 25 Mins- CT & [place] [facility], [address] [place] [address] Dr Ribeiro 1000[facility] 1000Beatrice MD, [id number], tel:[phone] [facility] Chronic venous hypertension (idiopathic) without complications of bilateral lower extremityEssen tial (primary) hypertensionPr uritus, unspecified Jan- 4 Mark DAMON RVT, TAL Martin. [address] [place] [address], [facility] [place], [id number], [place]. tel:[phone] Referring Provider: Bridgette Carvajal [place], [facility]. tel:[phone] [place] [facility], [address] [place] [address] Dr Ribeiro 1000[facility] 1000[place]rice [place], [id number], tel:[phone] [facility] Varicose veins of bilateral lower extremities with pain 4 Mark DAMON RVT, TAL Martin. [address] [place] [address], [facility] [place], [id number], [place]. tel:[phone] Referring Provider: Bridgette Carvajal [place], [facility]. tel:[phone] Family History Family Member Type Diagnosis Age At Onset No Information Payers Payer name Insurance type Covered democrat ID Authoriza tion(s) No Information Social History Type Description Quantity Date Captured Comments Sex Female Smoking Status No Information Chief Complaint And Reason For Visit No Information Reason For Referral Reason For Referral No Information Plan Of Treatment Date Type Action Status Goal Diet education completed Goal Tobacco cessation counseling completed Goal Tobacco cessation counseling completed Goal [...] BOOKYanelis D Appointment Isabel Banda (1 Year) SAHI D History Of Present Illness Encounter Date Complaint History Of Prese nt Illness No Information Functional Status Date Functional Assessmen t No Information Instructions Date Instruction Additional Infor herberth Lifestyle education Related to B rommel mass index (BMI) 27.0-27.9, adult Giving Encouragement to exercise Related to Body mass index (BMI) 27.0-27.9, adult Diet education Related to Body mass index (BMI) 27.0-27.9, adult Patient education booklet given Related to Chronic [...]
--- NOTE | ~2025-03-31 | XR_ITS ---
Examination:CR Xr Lumbar Spine 4v Min Technique: AP, and lateral: Flexion, neutral, and extension view x-rays of the lumbar spine. Prior: July 30, 2024 INDICATION: M43.16 - Spondylolisthesis, lumbar region FINDINGS: There is moderate atherosclerotic calcification in the abdominal aorta. There is mild to moderate sclerosis involving the SI joints. There are 5 nonrib-bearing lumbar segments. Since prior x-ray, posterior pedicle screws and rods and interbody spacer have been placed at L4-5. Alignment is improved at L4-5 with minimal residual grade 1 anterolisthesis. There is no instability during flexion and extension. L4-5 interbody space has improved. L5-S1 grade 1 anterolisthesis is unchanged since the prior. It also is unchanged during flexion and extension. There is facet sclerosis and osteophytes. Other levels demonstrate no changes since the prior examination and demonstrate no instability during flexion and extension. XR/XR lumbar spine 4V min IMPRESSION: Interbody fusion of L4-5 with interbody spacer placement with minimal residual grade 1 anterolisthesis which is improved from the prior. X-ray appearance is otherwise unchanged and there is no sign of instability with flexion and extension. Electronically signed by: Viraj Ball MD 03/31/2025 11:46 AM LARISSA
--- OUTSIDE RECORDS SUMMARY | 2025-04-01 09:04 | XMS_ITS | Encounter Summary ---
Author Organization [facility] Address [address] [place] [address] Care Team Providers Care Social Media Strategist Name Role Phone Kade Cummings MD Primary Care Provider [phone] Encounter Details Date Type Department Care Team ([facility] st Contact Info) Description 07/22/2019 Prep for Surgery [facility] OPHTHALM[facility] [address] [place] [id number] Triston Fulton MD [address] [facility] [address] [place] [address] Social History Tobacco Use Types Packs/Day Years [...] on filedocumented in this encounter Care Teams Social Media Strategist Relationship Specialty Start Date End Date Kade Cummings MD [address] [place] [address] PCP - General Internal Medicine 04/25/17 documented as of this encounter
--- OUTSIDE RECORDS SUMMARY | 2025-04-01 09:04 | XMS_ITS | Clinical Summary ---
Author Organization [facility] Address [address] [place] [address] Phone Care Team Providers Care Emergency Specialist Name Role Phone Doreen Avalos Primary Care Provider [phone] Surgical History Surgery Date Site/Laterality Comments KNEE [...] osteoporosis. No priors. Study acquired on a [employer] densitometer. Imaging of the lumbar spine and [...] forosteoporosis. No priors. Study acquired on a [employer] Advance densitometer. Imaging of thelumbar spine and [...] on 03/19/2022 11:18 AM.Workstation Name - [facility] Gautam Mcconnell MD IMG DXA PROCEDURES Final Re sult from Last 3 Months or Most Recently Relevant to Health Maintenance Insurance [facility]) Care Teams Emergency Specialist Relationship Specialty Start Date End Date Doreen Avalos PA PCP - General Physician Dredge Mechanic 11/22/14
--- OUTSIDE RECORDS SUMMARY | 2025-04-01 09:04 | XMS_ITS | Clinical Summary ---
Author Organization [facility] Address [address] [place] [address] Care Team Providers Care Airplane Technician Name Role Phone Kade Cummings MD Primary Care Provider [phone] Allergies Active Allergy Reactions Criticality Noted Date [...] this topic Medical Devices Implanted Type Area Automotive Service Cashier Device Identifier Shelf Expiration Date Model / Serial / Lot Lens Iol 0 D +16 Loco Mod L Bcnvx 13mm 6mm Posterior Chamber - [id number] Implanted:Qty: 1 on 04/30/2017 by Ricardo [facility] [employer] SN60WF.160 / [id number] / Lens Iol 0 D +15.5 Loco Mod L Bcnvx 13mm 6mm Posterior - [id number] Implanted:Qty: 1 on 05/28/2017 by Ricardo Villarreal MD at [facility] [place] [employer] [id number].155 / [id number] / Insurance [employer] MGD MEDICARE Advance Directives * Full Code (Latest Code Status on File) Date Activated Date Inactivated Comments 07/23/2019 12:50 PM Care Teams Airplane Technician Relationship Specialty Start Date End Date Kade Cummings MD [address] [place] [id number] PCP - General Internal Medicine 04/25/17
--- OUTSIDE RECORDS SUMMARY | 2025-04-01 09:05 | XMS_ITS | Clinical Summary ---
Author Organization [facility] Address [address] [place] [address] Care Team Providers Care Sander Hand Name Role Phone Doreen Avalos PA-C Primary [...] Covid-19 (Pfizer) Dilution Required 08/29/2020,0 08/08/2020 [facility] 04/14[facility]2012 Family History Medical History Relation Name [...] age to complete this topic Care Teams Sander Hand Relationship Specialty Start Date End Date Doreen Avalos PA-C PCP - General Physician Automotive Glass Mechanic 11/22/14
== END 2025-03-31 08:31 | disposition home or self-care (01) ==
LOC: HO.HOSX 08:30
PROVIDERS: Visit Provider Physician Assistant
DX: Z47.89 Encounter for other orthopedic aftercare (principal); M43.16 Spondylolisthesis, lumbar region; Z98.1 Arthrodesis status
CPT/HCPCS: 72110; 99212

== ENCOUNTER 2025-03-31 11:16 | Outpatient (AMB) | payer MEDICARE, SELFPAY ==
--- OUTSIDE RECORDS SUMMARY | 2021-05-02 06:30 | XMS_ITS | Continuity of Care Document ---
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 [address] [place], [facility] [address], [place], [address], [place]. tel: [phone] Referring Provider: Doreen Avalos, [address] [facility], [place], [address]. tel:[phone] [facility], [address] [place] [address], [id number], [place] [phone] VR - [place] - [place] Chronic venous hypertension w inflammation of r low extremVaricose veins of right lower extremities with pain 1 Cheko Musa. [address] [place], [address], [place], [address], [place]. tel: [phone] Referring Provider: Doreen Avalos, [address] [facility], [place], [address]. tel:[phone] Office/Outpt E&M Established 15 Mins [facility], [address] [place] [address], [id number], [place] [phone] VR - [place] - [place] Body mass index (BMI) 28.0-28.9, adultVenous insufficiency (chronic) (peripheral) 1 Cheko Musa. [address] [place], [address], [place], [address], [place]. tel:[phone] Referring Provider: Doreen Avalos, [address] [facility], [place], [address]. tel:[phone] [facility], [address] [place] [address], [id number], [place] tel:[phone] VR - [place] - [place] Chronic venous htn w inflammation of bilateral low extrm Thomas-0 7-202 1 Cheko Musa. [address] [place], [address], [place], [address], [place]. tel: [phone] Referring Provider: Bridgette Carvajal RD, [place], [address]. tel:[phone] Office/Outpt E&M Established 15 Mins [facility], [address] [place] [address], [id number], [place] tel:[phone] - [place] - [place] Body mass index (BMI) 28.0-28.9, adultVenous insufficiency (chronic) (peripheral)Asym ptomatic varicose veins of right lower extremity Jul-0 8- 1 Cheko Musa. [address] [place], [address], [place], [address], [place]. tel: [phone] Referring Provider: Bridgette [place]vajal [address], [place], [address]. tel:[phone] [facility], [address] [place] [address], [place], [place], [id number], [place] tel:[phone] VR - [place] - [place] Chronic venous hypertension w oth comp of r low extrem Jul-0 8- 1 Cheko Musa. [address] [place], [address], [place], [address], [place]. tel: [phone] Referring Provider: Bridgette [place]vajal RD, [place], [address]. tel:[phone] [facility], [address] [place] [address], [place], [place], [id number], [place] tel:[phone] VR - [place] - [place] Encntr for f/u exam aft trtmt for cond oth than malig neoplmChronic venous hypertension w oth comp of r low extrem 1 Cheko Musa. [address] [place], [address], [facility] [place], [address], [place]. tel: [phone] Referring Provider: Doreen Avalos, [address] [facility], [place], [address]. tel:[phone] [facility], [address] [place] [address], [id number], [place] tel:[phone] VR - [place] - [place] Varicose veins of right lower extremity with inflammation 1 Cheko Musa. [address] [place], [address], [place], [address], [place]. tel: [phone] Referring Provider: Doreen Avalos, [address] [facility], [place], [address]. tel:[phone] Office/Oupt E&M New Pt 45 Mins [facility], [address] [place] [address], [id number], [place] tel:[phone] VR - [place] - [place] Body mass index (BMI) 28.0-28.9, adultEssential (primary) hypertensionVeno us insufficiency (chronic) (peripheral)Vari cose veins of bi low extrem w oth complications 1 Cheko Musa. [address] [place], [address], [facility] [place], [address], [place]. tel: [phone] Referring Provider: Doreen Avalos, [address] [facility], [place], [address]. tel:[phone] [facility], [address] [place] [address], [id number], [place] tel:[phone] VR - [place] - [place] Chronic venous htn w oth comp of bilateral low extrm 1 Cheko Musa. [address] [place], [address], [facility] [place], [address], [place]. tel:[phone] Referring Provider: Doreen Avalos, [address] [place], [address]. tel:[phone] Physician for Vein [facility], [address] [place] [address], [id number], tel:[phone] VR - [place] - [place] Varicose veins of right lower extremities with pain 0 Virgie DAMON Thang. [address] [place] [address], [facility] [address], [place], [id number] , . tel: [phone] Referring Provider: Doreen Avalos, [address] [place], [address]. tel:[phone] Family History Family Member Type Diagnosis Age [...] insufficiency Payers Payer name Insurance type Covered libertarian ID Authoriza bee(s) [facility] Medicare A dvantage X CI [id number] Social History Type Description Quantity Date Captured [...] cessation counseling completed Goal Diet education completed Referral Ordered: Duplex Scan-extrem Veins; Uni/ [...] Information Instructions Date Instruction Additional Infor mation Patient education booklet given Related to Cramping Diet education Related to Body mass index [BMI] 28.0-28.9, adult Giving Encouragement to Exercise Related to Body mass index [BMI] 28.0-28.9, adult Patient education booklet given Related to Venous [...] adult Patient education booklet given Related to Venous Insufficiency (Chronic / Peripheral) Continue compression stocking us e Related to Venous Insufficiency (Chronic / Peripheral) Lifestyle education Related to E ssential (primary) hypertension Diet education Related to Essen tial (primary) hypertension Exercise education Related to Es sential (primary) hypertension Assessments Type Assessment Date assessment Body mass index [BMI] 28.0-28.9, adult assessment Cramp and spasm assessment Venous insufficiency (chronic) ( peripheral) Patient Care Teams Name Effective Dates (start - stop) Status Members No Information
--- OUTSIDE RECORDS SUMMARY | 2024-11-08 19:00 | XMS_ITS | Continuity of Care Document ---
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 Name Role Phone Mark DAMON, INDIRA, TAL, Mario Unavailable U navailable Allergies, Adverse Reactions, Alerts Substance Reaction Status Criticality lisinopril Active No Information erythromycin base Active No Informa tion Procedures Procedure Date Office/Outpt E&M Established 25 Mins- CT & [place] Duplex Scan-extrem Veins; Comp- CT & MA Office/Outpt E&M Established 15 Mins- CT & MA Duplex Scan-extrem Veins; Comp- CT & [place] Surgical Stockings - Exchange Duplex Scan-extrem Veins; Uni/ CT & MA N Inj Scleros Solut; Mx Veins 1- CT & MA N Ultrason Guidan Needle Bx-rad- CT & MA N Duplex Scan-extrem Veins; Uni/ CT & MA N Ultrason Guidan Needle Bx-rad- CT & MA N Inj Sclerosing Solution; Sngl- CT & MA N Surgical Stockings Mediven Plus Thigh Wa ist - Duplex Scan-extrem Veins; Uni/ CT & MA N PT Did Not Receive Services Endovenous Laser, 1st Vein- CT & MA Ultrason Guidan Needle Bx-rad- CT & MA O Inj Sclerosing Solution; Sngl- CT & MA O ct- Office/Outpt E&M Established 25 Mins- CT & MA Duplex Scan-extrem Veins; Comp- CT & MA Advance Directives Directive Yes / No Effective Date File Name No Information Encounters Encounter Description Practice Location Reason(s) For Visit Diagnoses Date Provider Providers Copied on Encounter [facility], [address] [place] [address] Dr Ribeiro [address] [address], [id number], tel:[phone] CVR - [facility] No Information 5 Mark DAMON RVT, TAL Martin. [address] [place] [address], [id number], [place]. tel:[phone] Referring Provider: Doreen Avalos [address] [place] [address], [facility]. tel:[phone] Office/Outpt E&M Established 25 Mins- CT & [place] [facility], [address] [place] [address] Dr Ribeiro [address] [address], [id number], tel:[phone] CVR [facility] Chronic venous hypertension (idiopathic) with other complications of bilateral lower extremity 5 Mark DAMON RVT, TAL Martin. [address] [place] [address], [id number], [place]. tel:[phone] Referring Provider: Bridgette Carvajal [place], [place], [facility]. tel:[phone] [facility], [address] [place] [address] Dr Ribeiro [address] [address], [id number], [place] tel:[phone] CVR [facility] Chronic venous hypertension (idiopathic) with other complications of bilateral lower extremity 5 Mark DAMON RVT, RPVI Robert. [address] [place] [address], [id number], [place]. tel:[phone] Referring Provider: Bridgette Carvajal [place], [place], [facility]. tel:[phone] Office/Outpt E&M Established 15 Mins- CT & [place] [facility] LEVI, [address] [place] [address] Dr Ribeiro [address], [id number], [place] tel:[phone] [place] [facility] [place] Venous insufficiency (chronic) (peripheral)Es sential (primary) hypertension 4 Malina Christensen. [address] [place] [address], [facility] [place]inda [place], [id number], [place]. tel:[phone] Referring Provider: Doreen Avalos [address] [place] [address], [facility]. tel:[phone] [facility], [address] [place] [address] Dr Ribeiro [address], [id number], [place] tel:[phone] CVR - [facility] Chronic venous hypertension (idiopathic) with other complications of bilateral lower extremity 4 Delia Jackelin. [address] [place] [address] 205, [place], [place], [id number], [place]. tel:[phone] Referring Provider: Doreen Avalos [address] [place] [address], [facility]. tel:[phone] [facility], [address] [place] [address] Dr Ribeiro [address], [id number], [place] tel:[phone] [facility] [facility] [place] Localized edema 4 Mark DAMON RVT, RPVI Robert. [address] [place] [address], [place], [id number], [place]. tel:[phone] [facility], [address] [place] [address] Dr Ribeiro [address], [id number], [place] tel:[phone] [facility] Encounter for follow-up examination after completed treatment for conditions other than malignant neoplasmPain in right lower leg 4 Mark DAMON RVT, RPVI Robert. [address] [place] [address], [facility] [place], [id number], [place]. tel:[phone] Referring Provider: Doreen Aavlos [address] [place] [address], [facility]. tel:[phone] [facility], [address] [place] [address] Dr Ribeiro [address]Suite [place] Rizvi [place], [id number], [place] tel:[phone] [place] Encounter for follow-up examination after completed treatment for conditions other than malignant neVaricose veins of right lower extremity with pain 4 Mark DAMON RVT, TAL Martin. [address] [place] [address], [facility] linda, [place], [id number], [place]. tel:[phone] Referring Provider: Bridgette Carvajal [place], [place], [facility]. tel:[phone] [facility], [address] [place] [address] Dr Ribeiro [address]Suite [place], [id number], [place] tel:[phone] [place] Varicose veins of right lower extremity with other complications 4 Devin Schaeffer. [address] [place] [address], [facility] [place], [id number], [place]. tel:[phone] Referring Provider: Bridgette Carvajal [place], [place], [facility]. tel:[phone] [facility], [address] [place] [address] Dr Ribeiro [address]Suite [place], [id number], [place] tel:[phone] [place] Varicose veins of right lower extremity with other complications 4 Mark DAMON RVT, TAL Martin. [address] [place] [address], [facility] [place], [id number], [place]. tel:[phone] Referring Provider: Bridgette Carvajal [place], [place], [facility]. tel:[phone] [facility], [address] [place] [address] Dr Ribeiro [address]Suite [place], [id number], [place] tel:[phone] [place] Venous insufficiency (chronic) (peripheral) 4 Mark DAMON RVT, RPVI Robert. [address] [place] [address], [place] [address], [facility] [place], [id number], [place]. tel:[phone] [facility], [address] [place] [address] Dr Ribeiro [address]rice vel[place]quez [place], [id number], [place] tel:[phone] [facility] Encounter for follow-up examination after completed treatment for conditions other than malignant neoplasmPain in left leg 4 Mark DAMON RVT, RPVI Robert. [address] [place] [address], [facility] linda [place], [id number], [place]. tel:[phone] Referring Provider: Doreen Avalos [address] [place] [address], [id number]. tel:[phone] [facility], [address] [place] [address] Dr Ribeiro [address]Suite [place], [id number], [place] tel:[phone] [facility] [place] [facility] [place] No Information 4 Mark DAMON RVT, RPVI Robert. [address] [place] [address], [facility] [place], [id number], [place]. tel:[phone] Referring Provider: Doreen Avalos [address] [place] [address], [id number]. tel:[phone] [facility], [address] [place] [address] Dr Ribeiro [address]Suite [place], [id number], [place] tel:[phone] CVR - [facility] Varicose veins of left lower extremity with other complications 4 Mark DAMON RVT, RPVI Robert. [address] [place] [address], [place], [id number], [place]. tel:[phone] Referring Provider: Doreen Avalos [address] [place], [id number]. tel:[phone] [facility], [address] [place] [address] Dr Ribeiro [address], [id number], tel:[phone] [facility] No Information 4 Mark DAMON RVT, TAL Martin. [address] [place] [address], [facility] [place], [id number], [place]. tel:[phone] Office/Outpt E&M Established 25 Mins- CT & [place] [facility], [address] [place] [address] Dr Ribeiro [address] 1000[place], [id number], tel:[phone] [facility] Chronic venous hypertension (idiopathic) without complications of bilateral lower extremityEssen tial (primary) hypertensionPr uritus, unspecified Jan- 4 Mark DAMON RVT, TAL Martin. [address] [place] [address], [facility] [place]inda[place]AK[place], [place], [id number], [place]. tel:[phone] Referring Provider: Bridgette Carvajal [place], [place], [facility]. tel:[phone] [facility], [address] [place] [address] Dr Ribeiro [address] 1000[place], [id number], tel:[phone] [facility] Varicose veins of bilateral lower extremities with pain 4 Mark DAMON RVT, TAL Martin. [address] [place] [address], [facility] [place]AK[place], [place], [id number], [place]. tel:[phone] Referring Provider: Bridgette Carvajal [place], [place], [facility]. tel:[phone] Family History Family Member Type Diagnosis Age At Onset No Information Payers Payer name Insurance type Covered libertarian ID Authoriza tion(s) No Information Social History Type Description Quantity Date Captured Comments Sex Female Smoking Status No Information Chief Complaint And Reason For Visit No Information Reason For Referral Reason For Referral No Information Plan Of Treatment Date Type Action Status Goal Tobacco cessation counseling completed Goal Diet education completed Goal Tobacco cessation counseling completed Goal Diet education completed Goal Tobacco cessation counseling completed Goal Diet education completed Referral Ordered: Weight management: Referral to physician timeframe: 3 Months (related to Body mass index (BMI) 27.0-27.9, adult) ordered Referral Ordered: Weight management: Referral to physician timeframe: 3 Months (related to Body mass index (BMI) 27.0-27.9, adult) ordered Referral Ordered: Weight management: Referral to physician timeframe: 3 Months (related to Body mass index (BMI) 27.0-27.9, adult) ordered Appointment Isabel Banda (1 Year) BOOKYanelis D Appointment Isabel Banda (1 Year) SHAI D History Of Present Illness Encounter Date Complaint History Of Prese nt Illness No Information Functional Status Date Functional Assessmen t No Information Instructions Date Instruction Additional Infor herberth Patient education booklet given Related to Chronic venous hypertension (idiopathic) with other complications of bilateral lower extremity Compression stocking usage as conservative measure Related to Chronic venous hypertension (idiopathic) with other complications of bilateral lower extremity Lifestyle education Related to B rommel mass index (BMI) 27.0-27.9, adult Giving Encouragement to exercise Related to Body mass index (BMI) 27.0-27.9, adult Diet education Related to Body mass index (BMI) 27.0-27.9, adult Lifestyle education Related to B rommel mass index (BMI) 27.0-27.9, adult Giving Encouragement to exercise Related to Body mass index (BMI) 27.0-27.9, adult Diet education Related to Body mass index (BMI) 27.0-27.9, adult Pre and post instruc tions reviewed and provided Related to Localized edema Patient education booklet given Related to Localized edema Pre and post instruc tions reviewed and provided Related to Chronic venous hypertension (idiopathic) without complications of bilateral lower extremity Patient education booklet given Related to Chronic venous hypertension (idiopathic) without complications of bilateral lower extremity Lifestyle education Related to B rommel mass index (BMI) 27.0-27.9, adult Giving Encouragement to exercise Related to Body mass index (BMI) 27.0-27.9, adult Diet education Related to Body mass index (BMI) 27.0-27.9, adult Assessments Type Assessment Date No Information Patient Care Teams Name Effective Dates (start - stop) Status Members No Information
--- NOTE | 2025-03-31 11:23 | A.SPINEOV_ITS ---
Intake Visit Reasons: 2nd post op with xrays Intake Note: Mrs. Banda is here today for her 2nd post op with x-rays. Paint Technician Required: No Allergies erythromycin base Allergy (Unknown, Verified 02/15/25 13:51) Unknown lisinopril Allergy (Unknown, Verified 02/15/25 13:51) cough Assessment & Plan Assessment & Plan (1) Low back pain: Code(s): M54.50 - Low back pain, unspecified Category: Medical Plan Procedure: L4-5 OLIF Isabel comes in today for her 2nd postoperative appointment after having an L4-[address] Cuellar. She continues to report that her severe leg pain has resolved since her surgery. Unfortunately she continues to report what sounds like restless leg syndrome at night. She does have a diagnosis of this at baseline, does not being treated for it. She states that her legs will jerk and/or move almost spontaneously when she is attempting to lay down at night. She cited several other symptoms which she reports she is concerned about. She states that she has numbness in her toes which he has had for many years. She is concerned that it seems to be traveling up her calves slightly. She does have a diagnosis of peripheral neuropathy, and it was explained that this is likely the cause. She also reported that she has been getting muscle spasms in her low back throughout the day/night. This is causing her to only get about 4 hours of sleep per night. We reviewed her x-ray imaging which shows stable placement of her surgical construct with no changes from fluoroscopy. No new neurological deficits. The patient ambulates well and rises from seated position without difficulty. Her posterior and lateral incision sites are closed and well healing. I would like to send Isabel for a course of physical therapy to see if she can work out some of the muscle spasms that she has in her low back. I will also send in a prescription for 10 mg baclofen q.h.s. to see if this will help her get some sleep. Chico Cuellar MD,PhD [facility] Orders: Orders XR lumbar spine 4V min Today M43.16 - Spondylolisthesis, lumbar region Coding Level of Care Code Global (21420) Diagnoses Low back pain M54.50
--- OUTSIDE RECORDS SUMMARY | 2025-03-31 14:01 | XMS_ITS | Encounter Summary ---
Author Organization [facility] Address [address] [place] [address] Care Team Providers Care Gastroenterology Professor Name Role Phone Kade Cummings MD Primary Care Provider [phone] Encounter Details Date Type Department Care Team ([facility] st Contact Info) Description 07/22/2019 Prep for Surgery [facility] OPHTHALMOLOGY [address] [place] [phone] Triston Fulton MD 85 [facility] [address] [place] [address] Social History Tobacco Use Types Packs/Day Years [...] on filedocumented in this encounter Care Teams Gastroenterology Professor Relationship Specialty Start Date End Date Kade Cummings MD [address] [place] [address] PCP - General Internal Medicine 04/25/17 documented as of this encounter
--- OUTSIDE RECORDS SUMMARY | 2025-03-31 14:01 | XMS_ITS | Data Portability ---
Author Organization [facility] [employer] [facility], autoContract - [facility] Address [address] [place] [address] Assessment Encounter Date Assessment Date Assessment LastModified by Organization Details LastModified Time 05/13/2024 05/13/2024 Patient verbally consented to participate [...] levels Venous insufficiency Plan in place with [facility] vein center Spinal stenosis Plan in place with orthopedics, considering ESL Microvascular ischemic changes on head CT at ER, possible history of infarction Check cranial MRI Normal echo 2018 Chronic inflammatory disorder may be contributing Continue [...] care plan above Not available 05/15/2024 19:51:55 11/30/2024 11/30/2024 Cervical strain Assessment: Patient reports severe right-sided neck pain over the trapezius and sternocleidomastoid muscles, which started over a week ago after sleeping with a neck pillow. She has a history of cervical spine arthritis. No associated numbness or weakness in the arms is reported. The pain is likely due to muscle spasms from improper sleeping position. Previous treatments with acetaminophen have been ineffective. Plan: - Prescribe methocarbamol 500 1-2 tablets BID, with instructions to take at bedtime due to potential sedation - Refer to physical therapy at [facility] for cervical strain - Educate patient on proper sleeping posture and pillow use Lumbar radiculopathy (Sciatica) Assessment: Patient reports exacerbation of chronic lower back pain with sciatica, now extending higher up the back and radiating down the entire leg. History of L4, L5 stenosis. Pain severe enough to necessitate sleeping in a zero-gravity chair. Previous neurosurgical consultation discussed fusion surgery. No loss of bowel or bladder control. Recent improvement with new footwear was noted before current exacerbation. Plan: - Prescribe prednisone 20 mg 2 tablet PO daily for 3 days, to be taken with food in the morning - Prescribe tramadol 50 1 tablet PO q6-8h PRN pain - Refer to Dr. Lin in [place] for pain management - Refer to physical therapy at [facility] for left-sided sciatica - Discontinue naproxen until consultation with Dr. Mcconnell - Educate patient on risks and benefits of prescribed medications RA Followed by Dr Mccray The patient is advised to follow up for any new or worsening symptoms at any time, symptom recurrence after completing therapy or other concerns Continue with prescribed medication adjustments, and adhere to the recommended management plans for each condition. [email or web address] Not available 11/30/2024 17:54:28 12/28/2024 12/28/2024 Pre-op L4-5 OLIF 01/25/2025 History of bleeding/clotting issues: None History of KS or CVA: None History of anesthesia issues: None METS: 4+ MACE risk: low Patient is here for preoperative clearance for the above-mentioned procedure. Patient has no symptoms of chest pain/pressure at rest or with exertion, no dyspnea at rest or with exertion, no PND/orthopnea, no edema, no palpitations. Patient has a normal exam. Patient has no history that would preclude undergoing the above-mentioned procedure. I have examined this patient, reviewed appropriate lab work and tests and certify that to the best of my knowledge there is not a medical contraindication for undergoing elective surgery with general and/or regional anesthesia. Pt is cleared for surgery ===== Hypocalcemia Secondary hyperPTH? Osteoporosis Endo scheduled later this week ===== POV telehealth 05/13/2024 IGT A1c 5.7 Continue diet exercise Reassess [...] levels Venous insufficiency Plan in place with [facility] vein [place] Spinal stenosis Plan in place with orthopedics, [...] after implementing care plan above Not available 12/28/2024 18:57:52 02/02/2025 02/02/2025 spinal stenosis of lumbar region s/p spinal fusion - Continue current pain management regimen with Tylenol and oxycodone - Maintain use of assistive devices as needed (cane, PowerWalker, wheelchair for longer distances) - Monitor incision sites for signs of infection - Continue stool softener - Follow up with surgeon as scheduled later this month - Patient education on normal post-operative course, including expectation of various aches, pains Risks and benefits of the treatment plan were discussed thoroughly with patient. Patient is in agreement with the current plan of care and all questions were answered. Patient agreed to call immediately with any new or worsening symptoms for advice. Patient will follow up in 1 week if not improving (or as above) [email or web address] Not available 02/03/2025 08:00:07 Plan of Treatment Reminders Order Date Submit Date Provider Last Modified By Organization Details Last Modified Time Details Appointments None recorded. Lab CBC 2023 [facility], [address], [place], [address], 21:29:07 iron + TIBC + ferritin, serum 2023 [facility], [address], [place], [address], 21:29:06 CMP, serum or plasma 2023 [facility], [address], [place], [address], 21:29:07 HbA1c (hemoglobin A1c), blood 2023 [facility], [address], [place], [address], 21:29:09 lipid panel, serum 2023 [facility], [address], [place], [address], 21:29:06 Referral None recorded. Procedures None recorded. Surgeries None recorded. Imaging electrocard iogram 2024 025 [email or web address] [id number] , [address] [place] [address], [id number], 10:20:33 Medication Orders doxycycline hyclate 100 mg tablet 2024 025 [facility], [address] [place], [address], 14:11:15 tramadol 50 mg tablet 2024 025 [facility], [address] [place], [address], 14:09:21 prednisone 20 mg tablet 2024 025 [facility], [address] [place], [address], 05:02:02 methocarbam ol 500 mg tablet 2024 025 [facility], [address] [place], [address], 14:11:26 Patient TargetsNo targets recorded. Patient InstructionsNo instructions recorded. Reason for Referral None Reported. Results Created Date Observation Date Name Description Value Unit Range Abnormal Flag Note LastModifiedBy Organization Detail LastModifiedTime 01/18/2001/17/2025 COLOG UARD cologuard result Cancel led - Provid er Reques t not applic able Not Available [facility] [address], [place], [address], 01/17/2025 16:59:22 05/06/20 24 05/07/2024 PTH, INTAC T (ICMA [...] or Low Lorena l High Not Available [facility] [address], [place], [address], 05/07/2024 14:52:34 05/06/20 24 05/07/2024 PTH, INTAC T (ICMA ) AND IONIZ ED CALCI UM calcium 8.5 mg/dL 8.6-10 .4 low Not Available [facility] [place] [facility] [address], [place], [address], 05/07/2024 14:52:34 05/06/20 24 05/07/2024 PTH, INTAC T (ICMA ) AND IONIZ ED CALCI UM calcium, ionized 4.8 mg/dL 4.7-5. 5 normal Not Available [facility] [place] [facility] [address], [place], [address], 05/07/2024 14:52:34 05/06/20 24 05/07/2024 LIPID PANEL WITH REFLE X TO DIREC T LDL cholesterol, total 174 mg/dL <200 normal Not Available [facility] [place] [facility] [address], [place], [address], 05/07/2024 14:52:35 05/06/20 24 05/07/2024 LIPID PANEL WITH REFLE X TO DIREC T LDL HDL cholesterol 80 mg/dL > or = 50 normal Not Available [facility] [place] [facility] [address], [place], [address], 05/07/2024 14:52:35 05/06/20 24 05/07/2024 LIPID PANEL WITH REFLE X TO DIREC T LDL triglyceride s 72 mg/dL <150 normal Not Available [facility] [address], [place], [address], 05/07/2024 14:52:35 05/06/20 24 05/07/2024 LIPID PANEL [...] calcu lated using the Emily n-Hop kins domenic mccormick n, which is a valid ated novel metho d denissei rey gibbs accur acy than the Fried balaji equat ion in the estim ation of LDL-C . Emily ahn SS et al. MELBA. 2013; 310(1 9): 2061- 2068 (http ://ed ucati on.Qu estDi Spine[employer]. com/f aq/FA Q164) Not Available [facility] [place] [facility] [address], [address], 05/07/2024 14:52:35 05/06/20 24 05/07/2024 LIPID PANEL WITH REFLE X TO DIREC T LDL chol/HDLC ratio 2.2 (calc ) <5.0 normal Not Available [facility] [place] [facility] [address], [place], [address], 05/07/2024 14:52:35 05/06/20 24 05/07/2024 LIPID PANEL WITH REFLE X TO DIREC T LDL non HDL cholesterol 94 mg/dL _(charles c) <130 normal For patie nts with diabe romeo plus 1 major ASCVD risk facto r, treat ing to a non-H DL-C goal of <100 mg/dL (LDL- C of <70 mg/dL ) is consi faith rhodes optio n. Not Available [facility] [place] [facility] [address], [address], 05/07/2024 14:52:35 05/06/20 24 05/07/2024 IRON AND TOTAL IRON SHELLY NG CAPAC ITY iron, total 90 mcg/d L 45-160 normal Not Available [facility] [place] [facility] [address], [address], 05/07/2024 14:52:35 05/06/20 24 05/07/2024 IRON AND TOTAL IRON SHELLY NG CAPAC ITY iron binding capacity 319 mcg/d L_(ca lc) 250-45 0 normal Not Available [facility] [place] [facility] [address], [place], [address], 05/07/2024 14:52:35 05/06/20 24 05/07/2024 IRON AND TOTAL IRON SHELLY NG CAPAC ITY % saturation 28 %_(ca lc) 16-45 normal Not Available [facility] [place] [facility] [address], [place], [address], 05/07/2024 14:52:35 05/06/20 24 05/07/2024 COMPR EHENS NOMI METAB OLIC PANEL glucose 105 mg/dL 65-99 high Fasti ng refer ence inter ceasar For someo ne witho ut known diabe romeo, a gluco se value betwe en 100 and 125 mg/dL is consi stent with predi abete s and shoul d be confi rmed with a follo w-up test. Not Available [facility] [place] [facility] [address], [place], [address], 05/07/2024 14:52:36 05/06/20 24 05/07/2024 COMPR EHENS NOMI METAB OLIC PANEL urea nitrogen (BUN) 15 mg/dL 7-25 normal Not Available [facility] [address], [place], [address], 05/07/2024 14:52:36 05/06/20 24 05/07/2024 COMPR EHENS NOMI METAB OLIC PANEL creatinine 0.70 mg/dL 0.60-1 .00 normal Not Available [facility] [address], [place], [address], 05/07/2024 14:52:36 05/06/20 24 05/07/2024 COMPR EHENS NOMI METAB OLIC PANEL eGFR 92 mL/mi n/1.7 3m2 > or = 60 normal Not Available [facility] [address], [place], [address], 05/07/2024 14:52:36 05/06/20 24 05/07/2024 COMPR EHENS NOMI METAB OLIC PANEL BUN/creatini ne ratio SEE NOTE: (calc ) 6-22 Not Repor hill: BUN and Creat inine are withi n refer ence range . Not Available [facility] [address], [place], [address], 05/07/2024 14:52:36 05/06/20 24 05/07/2024 COMPR EHENS NOMI METAB OLIC PANEL sodium 140 mmol/ L 135-14 6 normal Not Available [facility] [address], [place], [address], 05/07/2024 14:52:36 05/06/20 24 05/07/2024 COMPR EHENS NOMI METAB OLIC PANEL potassium 4.2 mmol/ L 3.5-5. 3 normal Not Available [facility] [address], [place], [address], 05/07/2024 14:52:36 05/06/20 24 05/07/2024 COMPR EHENS NOMI METAB OLIC PANEL chloride 106 mmol/ L 98-110 normal Not Available [facility] [address], [place], [address], 05/07/2024 14:52:36 05/06/20 24 05/07/2024 COMPR EHENS NOMI METAB OLIC PANEL carbon dioxide 26 mmol/ L 20-32 normal Not Available [facility] [address], [place], [address], 05/07/2024 14:52:36 05/06/20 24 05/07/2024 COMPR EHENS NOMI METAB OLIC PANEL calcium 8.5 mg/dL 8.6-10 .4 low Not Available [facility] [address], [place], [address], 05/07/2024 14:52:36 05/06/20 24 05/07/2024 COMPR EHENS NOMI METAB OLIC PANEL protein, total 7.0 g/dL 6.1-8. 1 normal Not Available [facility] [address], [place], [address], 05/07/2024 14:52:36 05/06/20 24 05/07/2024 COMPR EHENS NOMI METAB OLIC PANEL albumin 3.9 g/dL 3.6-5. 1 normal Not Available [facility] [address], [place], [address], 05/07/2024 14:52:36 05/06/20 24 05/07/2024 COMPR EHENS NOMI METAB OLIC PANEL globulin 3.1 g/dL_ (calc ) 1.9-3. 7 normal Not Available [facility] [address], [place], [address], 05/07/2024 14:52:36 05/06/20 24 05/07/2024 COMPR EHENS NOMI METAB OLIC PANEL albumin/glob ulin ratio 1.3 (calc ) 1.0-2. 5 normal Not Available [facility] [address], [place], [address], 05/07/2024 14:52:36 05/06/20 24 05/07/2024 COMPR EHENS NOMI METAB OLIC PANEL bilirubin, total 0.6 mg/dL 0.2-1. 2 normal Not Available [facility] [address], [place], [address], 05/07/2024 14:52:36 05/06/20 24 05/07/2024 COMPR EHENS NOMI METAB OLIC PANEL alkaline phosphatase 72 U/L 37-153 normal Not Available [facility] [place] [facility] [address], [place], [address], 05/07/2024 14:52:36 05/06/20 24 05/07/2024 COMPR EHENS NOMI METAB OLIC PANEL AST 20 U/L 10-35 normal Not Available [facility] [place] [facility] [address], [place], [address], 05/07/2024 14:52:36 05/06/20 24 05/07/2024 COMPR EHENS NOMI METAB OLIC PANEL ALT 25 U/L 6-29 normal Not Available [facility] [address], [place], [address], 05/07/2024 14:52:36 05/06/20 24 05/07/2024 CBC (INCL UDES DIFF/ PLT) white blood cell count 5.6 thous and/u L 3.8-10 .8 normal Not Available [facility] [place] [facility] [address], [place], [address], 05/07/2024 14:52:36 05/06/20 24 05/07/2024 CBC (INCL UDES DIFF/ PLT) red blood cell count 4.27 ashok on/uL 3.80-5 .10 normal Not Available [facility] [address], [place], [address], 05/07/2024 14:52:36 05/06/20 24 05/07/2024 CBC (INCL UDES DIFF/ PLT) hemoglobin 13.4 g/dL 11.7-1 5.5 normal Not Available [facility] [address], [place], [address], 05/07/2024 14:52:36 05/06/20 24 05/07/2024 CBC (INCL UDES DIFF/ PLT) hematocrit 40.5 % 35.0-4 5.0 normal Not Available [facility] [place] [facility] [address] [place], [place], [address], 05/07/2024 14:52:36 05/06/20 24 05/07/2024 CBC (INCL UDES DIFF/ PLT) MCV 94.8 fL 80.0-1 00.0 normal Not Available [facility] [place] [facility] [address], [place], [address], 05/07/2024 14:52:36 05/06/20 24 05/07/2024 CBC (INCL UDES DIFF/ PLT) MCH 31.4 pg 27.0-3 3.0 normal Not Available [facility] [place] [facility] [address], [place], [address], 05/07/2024 14:52:36 05/06/20 24 05/07/2024 CBC (INCL UDES DIFF/ PLT) MCHC 33.1 g/dL 32.0-3 6.0 normal For adult s, a sligh t decre ase in the calcu lated MCHC value (in the range of 30 to 32 g/dL) is most likel y not clini maikol signi fican t; fahad er, it shoul d be inter prete d with cauti on in [facility] n with other red cell tj eters and the patie nt's clini charles condi tion. Not Available [facility] [place] [facility] [address], [place], [address], 05/07/2024 14:52:36 05/06/20 24 05/07/2024 CBC (INCL UDES DIFF/ PLT) RDW 14.1 % 11.0-1 5.0 normal Not Available [facility] [place] [facility] [address], [place], [address], 05/07/2024 14:52:36 12/12/20 24 05/07/2024 CBC (INCL UDES DIFF/ PLT) platelet count 275 thous and/u L 140-40 0 normal Not Available [facility] [place] [facility] [address], [place], [address], 05/07/2024 14:52:36 05/06/20 24 05/07/2024 CBC (INCL UDES DIFF/ PLT) MPV 10.3 fL 7.5-12 .5 normal Not Available [facility] [place] [facility] [address], [place], [address], 05/07/2024 14:52:36 05/06/2005/07/2024 CBC (INCL UDES DIFF/ PLT) absolute neutrophils 3662 cells /uL 1500-7 800 normal Not Available [facility] [place] [facility] [address], [place], [address], 05/07/2024 14:52:36 05/06/20 24 05/07/2024 CBC (INCL UDES DIFF/ PLT) absolute lymphocytes 1019 cells /uL 850-39 00 normal Not Available [facility] [place] [facility] [address], [place], [address], 05/07/2024 14:52:36 05/06/20 24 05/07/2024 CBC (INCL UDES DIFF/ PLT) absolute monocytes 538 cells /uL 200-95 0 normal Not Available [facility] [place] [facility] [address], [place], [address], 05/07/2024 14:52:36 05/06/20 24 05/07/2024 CBC (INCL UDES DIFF/ PLT) absolute eosinophils 330 cells /uL 15-500 normal Not Available [facility] [place] [facility] [address], [place], [address], 05/07/2024 14:52:36 05/06/20 24 05/07/2024 CBC (INCL UDES DIFF/ PLT) absolute basophils 50 cells /uL 0-200 normal Not Available [facility] [place] [facility] [address], [place], [address], 05/07/2024 14:52:36 05/06/20 24 05/07/2024 CBC (INCL UDES DIFF/ PLT) neutrophils 65.4 % normal Not Available [facility] [place] [facility] [address], [place], [address], 05/07/2024 14:52:36 05/06/20 24 05/07/2024 CBC (INCL UDES DIFF/ PLT) lymphocytes 18.2 % normal Not Available [facility] [place] [facility] [address], [place], [address], 05/07/2024 14:52:36 05/06/20 24 05/07/2024 CBC (INCL UDES DIFF/ PLT) monocytes 9.6 % normal Not Available [facility] [place] [facility] [address], [place], [address], 05/07/2024 14:52:36 05/06/20 24 05/07/2024 CBC (INCL UDES DIFF/ PLT) eosinophils 5.9 % normal Not Available [facility] [place] [facility] [address], [place], [address], 05/07/2024 14:52:36 05/06/20 24 05/07/2024 CBC (INCL UDES DIFF/ PLT) basophils 0.9 % normal Not Available [facility] [place] [facility] [address], [place], [address], 05/07/2024 14:52:36 05/06/20 24 05/07/2024 GLADYS TIN ferritin 72 NG/mL 16-288 normal Not Available [facility] [place] [facility] [address], [place], [address], 05/07/2024 14:52:37 05/06/20 24 05/07/2024 VITAM IN [...] /MS is recom leann d: order code 05736 (amena ents >2yrs ). See Note 1 Note 1 For addit ional infor bassam de la cruz refer to http: //[facility] manuel ahn.Kane stDia gnost ics.c om/fa q/FAQ 199 (This link is being provi ded for infor abby quezada/ educakshat paul purpo ses only. ) Not Available [facility] [place], [place], [address], 05/07/2024 14:52:37 05/06/20 24 05/07/2024 HEMOG LOBIN [...] Curre ntly, no conse nsus exist s romana le use of hemog lobin A1c for diagn osis of diabe romeo for child angel. Not Available [facility] [place] [facility] [address] [place], [place], [address], 05/07/2024 14:52:38 05/06/20 24 05/07/2024 HEMOG LOBIN A1C WITH MPG mean plasma glucose 126 mg/dL _(cahrles c) Not Available [facility] [place] [facility] [address] [place], [place], [address], 05/07/2024 14:52:38 12/25/19 25 12/24/2024 IRON, TIBC AND GLADYS TIN PANEL iron, total 65 mcg/d L 45-160 normal Not Available [facility] [place] [facility] [address] [place], [place], [address], 12/24/2024 22:31:03 12/25/19 25 12/24/2024 IRON, TIBC AND GLADYS TIN PANEL iron binding capacity 280 mcg/d L_(ca lc) 250-45 0 normal Not Available [facility] [place] [facility] [address], [place], [address], 12/24/2024 22:31:03 12/25/19 25 12/24/2024 IRON, TIBC AND GLADYS TIN PANEL % saturation 23 %_(ca lc) 16-45 normal Not Available [facility] [place] [facility] [address], [place], [address], 12/24/2024 22:31:03 12/25/19 25 12/24/2024 IRON, TIBC AND GLADYS TIN PANEL ferritin 102 NG/mL 16-288 normal Not Available [facility] [place] [facility] [address], [place], [address], 12/24/2024 22:31:03 12/25/19 25 12/24/2024 LIPID PANEL WITH REFLE X TO DIREC T LDL cholesterol, total 173 mg/dL <200 normal Not Available [facility] [place] [facility] [address], [place], [address], 12/24/2024 22:31:04 12/25/19 25 12/24/2024 LIPID PANEL WITH REFLE X TO DIREC T LDL HDL cholesterol 75 mg/dL > or = 50 normal Not Available [facility] [place] [facility] [address], [place], [address], 12/24/2024 22:31:04 12/25/19 25 12/24/2024 LIPID PANEL WITH REFLE X TO DIREC T LDL triglyceride s 72 mg/dL <150 normal Not Available [facility] [place] [facility] [address], [place], [address], 12/24/2024 22:31:04 12/25/19 25 12/24/2024 LIPID PANEL WITH REFLE X TO DIREC T LDL LDL-choleste rol 83 mg/dL _(charles c) normal Refer ence range : <100 Tommy able range <100 mg/dL for prima ry preve ntion ; <70 mg/dL for patie nts with CHD or diabe tic patie nts with > or = 2 CHD risk facto rs. LDL-C is now calcu lated using the Emily ahn-Hop kins domenic mccormick n, which is a valid ated novel maryo d cole barton r accur acy than the Fried balaji equat ion in the estim ation of LDL-C . Emily ahn SS et al. MELBA. 2013; 310(1 9): 2061- 2068 (http ://ed silvinaati on.[employer]. com/f aq/FA Q164) Not Available [facility] [place] [facility] [address], [place], [address], 12/24/2024 22:31:04 12/25/19 25 12/24/2024 LIPID PANEL WITH REFLE X TO DIREC T LDL chol/HDLC ratio 2.3 (calc ) <5.0 normal Not Available [facility] [address], [place], [address], 12/24/2024 22:31:04 12/25/19 25 12/24/2024 LIPID PANEL WITH REFLE X TO DIREC T LDL non HDL cholesterol 98 mg/dL _(charles c) <130 normal For patie nts with diabe romeo plus 1 major ASCVD risk facto r, treat ing to a non-H DL-C goal of <100 mg/dL (LDL- C of <70 mg/dL ) is chase rhodes optio n. Not Available [facility] [address], [place], [address], 12/24/2024 22:31:04 12/25/19 25 12/24/2024 COMPR EHENS NOMI METAB OLIC PANEL glucose 98 mg/dL 65-99 normal Fasti ng refer ence inter ceasar Not Available [facility] [address], [place], [address], 12/24/2024 22:31:05 12/25/19 25 12/24/2024 COMPR EHENS NOMI METAB OLIC PANEL urea nitrogen (BUN) 14 mg/dL 7-25 normal Not Available [facility] [address], [place], [address], 12/24/2024 22:31:05 12/25/19 25 12/24/2024 COMPR EHENS NOMI METAB OLIC PANEL creatinine 0.81 mg/dL 0.60-1 .00 normal Not Available [facility] [address], [place], [address], 12/24/2024 22:31:05 12/25/19 25 12/24/2024 COMPR EHENS NOMI METAB OLIC PANEL eGFR 77 mL/mi n/1.7 3m2 > or = 60 normal Not Available [facility] [address], [place], [address], 12/24/2024 22:31:05 12/25/19 25 12/24/2024 COMPR EHENS NOMI METAB OLIC PANEL BUN/creatini ne ratio SEE NOTE: (calc ) 6-22 Not Repor hill: BUN and Creat inine are withi n refer ence range . Not Available [facility] [address], [place], [address], 12/24/2024 22:31:05 12/25/19 25 12/24/2024 COMPR EHENS NOMI METAB OLIC PANEL sodium 139 mmol/ L 135-14 6 normal Not Available [facility] [address], [place], [address], 12/24/2024 22:31:05 12/25/19 25 12/24/2024 COMPR EHENS NOMI METAB OLIC PANEL potassium 3.9 mmol/ L 3.5-5. 3 normal Not Available [facility] [address], [place], [address], 12/24/2024 22:31:05 12/25/19 25 12/24/2024 COMPR EHENS NOMI METAB OLIC PANEL chloride 105 mmol/ L 98-110 normal Not Available [facility] [address], [place], [address], 12/24/2024 22:31:05 12/25/19 25 12/24/2024 COMPR EHENS NOMI METAB OLIC PANEL carbon dioxide 26 mmol/ L 20-32 normal Not Available [facility] [address], [place], [address], 12/24/2024 22:31:05 12/25/19 25 12/24/2024 COMPR EHENS NOMI METAB OLIC PANEL calcium 8.3 mg/dL 8.6-10 .4 low Not Available [facility] [place] [facility] [address], [place], [address], 12/24/2024 22:31:05 12/25/19 25 12/24/2024 COMPR EHENS NOMI METAB OLIC PANEL protein, total 7.2 g/dL 6.1-8. 1 normal Not Available [facility] [place] [facility] [address], [place], [address], 12/24/2024 22:31:05 12/25/19 25 12/24/2024 COMPR EHENS NOMI METAB OLIC PANEL albumin 3.8 g/dL 3.6-5. 1 normal Not Available [facility] [address], [place], [address], 12/24/2024 22:31:05 12/25/19 25 12/24/2024 COMPR EHENS NOMI METAB OLIC PANEL globulin 3.4 g/dL_ (calc ) 1.9-3. 7 normal Not Available [facility] [place] [facility] [address], [place], [address], 12/24/2024 22:31:05 12/25/19 25 12/24/2024 COMPR EHENS NOMI METAB OLIC PANEL albumin/glob ulin ratio 1.1 (calc ) 1.0-2. 5 normal Not Available [facility] [address], [place], [address], 12/24/2024 22:31:05 12/25/19 25 12/24/2024 COMPR EHENS NOMI METAB OLIC PANEL bilirubin, total 0.4 mg/dL 0.2-1. 2 normal Not Available [facility] [address], [place], [address], 12/24/2024 22:31:05 12/25/19 25 12/24/2024 COMPR EHENS NOMI METAB OLIC PANEL alkaline phosphatase 80 U/L 37-153 normal Not Available [facility] [place] [facility] [address] [place], [place], [address], 12/24/2024 22:31:05 12/25/19 25 12/24/2024 COMPR EHENS NOMI METAB OLIC PANEL AST 14 U/L 10-35 normal Not Available [facility] [place] [facility] [address] [place], [place], [address], 12/24/2024 22:31:05 12/25/19 25 12/24/2024 COMPR EHENS NOMI METAB OLIC PANEL ALT 12 U/L 6-29 normal Not Available [facility] [address] [place], [place], [address], 12/24/2024 22:31:05 12/25/19 25 12/24/2024 CBC (H/H, RBC, INDIC ES, WBC, PLT) white blood cell count 6.4 thous and/u L 3.8-10 .8 normal Not Available [facility] [address] [place], [place], [address], 12/24/2024 23:09:43 12/25/19 25 12/24/2024 CBC (H/H, RBC, INDIC ES, WBC, PLT) red blood cell count 4.44 ashok on/uL 3.80-5 .10 normal Not Available [facility] [address] [place], [place], [address], 12/24/2024 23:09:43 12/25/19 25 12/24/2024 CBC (H/H, RBC, INDIC ES, WBC, PLT) hemoglobin 14.0 g/dL 11.7-1 5.5 normal Not Available [facility] [address], [place], [address], 12/24/2024 23:09:43 12/25/19 25 12/24/2024 CBC (H/H, RBC, INDIC ES, WBC, PLT) hematocrit 41.8 % 35.0-4 5.0 normal Not Available [facility] [place] [facility] [address] [place], [place], [address], 12/24/2024 23:09:43 12/25/19 25 12/24/2024 CBC (H/H, RBC, INDIC ES, WBC, PLT) MCV 94.1 fL 80.0-1 00.0 normal Not Available [facility] [place] [facility] [address] [place], [place], [address], 12/24/2024 23:09:43 12/25/19 25 12/24/2024 CBC (H/H, RBC, INDIC ES, WBC, PLT) MCH 31.5 pg 27.0-3 3.0 normal Not Available [facility] [place] [facility] [address] [place], [place], [address], 12/24/2024 23:09:43 12/25/19 25 12/24/2024 CBC (H/H, RBC, INDIC ES, WBC, PLT) MCHC 33.5 g/dL 32.0-3 6.0 normal For adult s, a sligh t decre ase in the calcu lated MCHC value (in the range of 30 to 32 g/dL) is most likel y not clini maikol signi ficfernando t; fahad er, it shoul d be inter prete d with cauti on in corre latio n with other red cell tj eters and the patie nt's clini charles condi tion. Not Available [facility] [place] [facility] [address] [place], [place], [address], 12/24/2024 23:09:43 12/25/19 25 12/24/2024 CBC (H/H, RBC, INDIC ES, WBC, PLT) RDW 14.8 % 11.0-1 5.0 normal Not Available [facility] [address], [place], [address], 12/24/2024 23:09:43 12/25/19 25 12/24/2024 CBC (H/H, RBC, INDIC ES, WBC, PLT) platelet count 287 thous and/u L 140-40 0 normal Not Available [facility] [address], [place], [address], 12/24/2024 23:09:43 12/25/19 25 12/24/2024 CBC (H/H, RBC, INDIC ES, WBC, PLT) MPV 9.8 fL 7.5-12 .5 normal Not Available [facility] [address], [place], [address], 12/24/2024 23:09:43 12/25/19 25 12/25/2024 PTH, INTAC T WITHO UT CALCI UM parathyroid hormone, intact 126 pg/mL 16-77 high Inter preti ve Guide [...] or Low Lorena l High Not Available [facility] [address], [place], [address], 12/25/2024 05:20:43 12/25/19 25 12/24/2024 VITAM IN D,25- OH,TO MIGUEL,I A vitamin D,25-oh,tota l,ia 39 NG/mL 30-100 normal Vitam in D Statu [...] /MS is recom leann d: order code [id number] (amena ents >2yrs ). See Note 1 Note 1 For addit ional infor bassam de la cruz e refer to http: //[facility] manuel Burgos stDia gnprem ics.c om/fa q/FAQ 199 (This link is being provi ded for infor abby quezada/ educa gema l purpo ses only. ) Not Available [facility] [place] [facility] [address], [place], [address], 12/24/2024 21:29:08 12/25/19 25 12/25/2024 HEMOG LOBIN A1C WITH MPG hemoglobin A1C 5.9 % <5.7 high For someo ne witho ut [...] diabe romeo for child angel. Not Available [facility] [place] [facility] [address], [place], [address], 12/25/2024 00:56:31 12/25/19 25 12/25/2024 HEMOG LOBIN A1C WITH MPG mean plasma glucose 133 mg/dL _(charles c) Not Available [facility] [place] [facility] [address], [place], [address], 12/25/2024 00:56:31 05/04/20 24 05/03/2024 MRI, lumba r spine , w/o contr ast No observ ation record ed. [email or web address] [facility] [address] [facility] [address], [place], [address], 05/09/2024 20:11:43 08/03/19 25 07/30/2024 XR, thora cic spine No observ ation record ed. [email or web address] [address], [address], 08/08/2024 13:56:57 08/03/19 25 07/30/2024 XR, lumbo sacra l spine , 2 or 3 view No observ ation record ed. [email or web address] [facility] [address] [place], [address], 08/08/2024 13:57:26 12/29/19 25 elect juan garg am No observ ation record ed. [email or web address] [address], [address], 12/28/2024 18:55:14 01/26/20 25 01/25/2025 fluor oscop ic guide d lumba r facet stero id injec tion (PROC ) No observ ation record ed. [email or web address] [facility] [address] [place] [address], [address], 02/06/2025 12:58:14 03/03/20 25 03/02/2025 MAMMO , scree alberto, digit al, bilat eral No observ ation record ed. [email or web address] [facility] [address], [place], [address], 03/06/2025 15:52:39 Result Notes None recorded. Problems Name Problem SNOMED Code Status Onset Date Resolution Date Notes Provider Name and Address Organization Details Recorded Time 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 08365039651 225791 Active 2016 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/2015; IHM5Lorem iption: Neuropath y involving both lower extremiti es; WKF12Zurk ription: Neuropath y involving both lower extremiti es; NPI: [id number] 2; Not Available [facility] 5 11:24:16 History of arthrosco py of knee joint 092532345 Active 2016 H/O arthrosco py of right knee; OTD3Arzvp iption: H/O arthrosco py of right knee; XUI41Fycg ription: H/O arthrosco py of right knee; NPI: [id number] 2; Not Available [facility] 5 11:24:16 Essential hypertens ion 86625039 Active 2016 Essential hypertens ion; RUC4Wqsxg iption: Essential hypertens ion; KAK75Ozvk ription: Essential hypertens ion; NPI: [id number]; Not Available [facility] 5 11:24:17 Rheumatoi d arthritis of multiple joints 924323299 Active 2016 Rheumatoi d arthritis involving multiple sites with positive rheumatoi d factor; MCF5Ddwqp iption: Rheumatoi d arthritis involving multiple sites with positive rheumatoi d factor; ORL37Hopf ription: Rheumatoi d arthritis involving multiple sites with positive rheumatoi d factor; NPI: [id number] 2; Not Available [facility] 5 11:24:22 History of glaucoma 387378041 Active 2016 History of glaucoma; NCE3Lwgsv iption: History of glaucoma; PSF03Rfbr ription: History of glaucoma; NPI: [id number] 2; Not Available [facility] 5 11:24:23 Venous insuffici ency of lower limb 694981969 Active 2016 Venous insuffici ency of both lower extremiti es; NEL6Lazkj iption: Venous insuffici ency of both lower extremiti es; XXW11Lusz ription: Venous insuffici ency of both lower extremiti es; NPI: [id number] 2; Not Available [facility] 5 11:24:23 History of procedure 958314102 Active 2017 Echo Normal 08/29/17; OHU3Loitu iption: History of echocardi ogram; UWO41Daqu ription: History of echocardi ogram; dlname: Billie; dfname: Rita; Physician _Suffix: [place]; Physician _Phone: tel:[phone]; Physician _Fax: fax:[phone]; Physician _Addr1: [address]; Physician _Addr2: [address]; Physician _City: [place]; Physician _State: [place]; Physician _PostalCo de: [id number]; Not Available [facility] 5 11:24:16 Senile osteoporo sis 77745673 Active 2017 osteoporo sis BMD 09/16/2017 ; T -2.7 spine, T -2.1; MVD3Bknct iption: Age-relat ed osteoporo sis without current pathologi charles fracture; OEM99Yxiq ription: Age-relat ed osteoporo sis without current pathologi charles fracture; NPI: [id number] 2; Not Available [facility] 5 11:24:20 Electromy ogram abnormal 289588057 Active 2017 EMG LE 08/02/15; ZLF7Uhqhp iption: Abnormal EMG; CLR90Oscy ription: Abnormal EMG; Not Available [facility] 5 11:24:16 History of cardiovas cular disease 050742177 Active 2017 History of Raynaud's syndrome; VDR1Zizop iption: History of Raynaud's syndrome; MVA27Qlvy ription: History of Raynaud's syndrome; Not Available [facility] 5 11:24:19 Body mass index 25-29 - overweigh t 269626056 Active 2018 Overweigh t (BMI 25.0-29.9 ); VQG8Extqs iption: Overweigh t (BMI 25.0-29.9 ); XGX54Fsjk ription: Overweigh t (BMI 25.0-29.9 ); NPI: [id number] 2; Not Available [facility] 5 11:24:18 Chronic low back pain 906698432 Active 2018 Chronic bilateral low back pain with sciatica; WXP5Uljie iption: Chronic bilateral low back pain with sciatica; LVO23Vihr ription: Chronic bilateral low back pain with sciatica; NPI: [id number] 2; Not Available [facility] 5 11:24:18 Detachmen t of retina of left eye 69123658360 991649 Active 2019 Detached retina, left; NDQ7Ufhcl iption: Detached retina, left; EBE10Nfln ription: Detached retina, left; NPI: [id number] 2; Not Available [facility] 5 11:24:16 Degenerat ion of lumbar intervert ebral disc 74349808 Active 2019 Lumbar degenerat nomi disc disease; LTL9Bbotk iption: Lumbar degenerat nomi disc disease; GYV42Sccv ription: Lumbar degenerat nomi disc disease; dlname: Delia; dfname: Blanchard; dminit: Gym; Physician _Suffix: MD; Physician _Specialt y: Rehabilit ation Medicine; NPI: [id number] 9; Not Available [facility] 5 11:24:19 Lumbar radiculop athy 095447259 Active 2019 Lumbar radiculop athy; VIC3Gxrax iption: Lumbar radiculop athy; EIV94Cofm ription: Lumbar radiculop athy; NPI: [id number] 9; Not Available [facility] 5 11:24:23 Mixed hyperlipi demia 665365541 Active 2019 Mixed hyperlipi demia; XQI1Fgeqe iption: Mixed hyperlipi demia; DBK60Qnmf ription: Mixed hyperlipi demia; NPI: [id number] 2; Not Available [facility] 5 11:24:23 Glaucoma 59093016 Active 2022 Unspecifi ed glaucoma; WEA0Mtuhn iption: Unspecifi ed glaucoma; CZJ22Ackw ription: Unspecifi ed glaucoma; NPI: [id number] 2; Not Available [facility] 5 11:24:21 Restless legs syndrome 92820818 Active 2023 ANTONIETTA Carvajal [address], [place], [place], , [facility] 4 19:50:23 Spinal stenosis of lumbar region 34076009 Active 2023 ANTONIETTA Carvajal [address], [place], [place], , [facility] 4 19:50:24 Periphera l venous insuffici ency 84586074 Active 2023 ANTONIETTA Carvajal [address], [place], [place], , [facility] 4 19:50:27 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 352360422 Active 2023 ANTONIETTA Carvajal [address], [place], [place], , [facility] 4 19:50:29 Osteoporo sis 35250891 Active 2023 ANTONIETTA Carvajal [address], [place], [place], , [facility] 4 19:50:30 Impaired glucose tolerance 5750345 Active 2023 ANTONIETTA Carvajal [address], [place], [place], , [facility] 4 19:50:33 Rheumatoi d arthritis 30431628 Active 2023 ANTONIETTA Carvajal [address], [place], [place], , [facility] 4 19:52:06 Calcifica tion of coronary artery 591566276 Active 2023 Doreen Avalos, ANTONIETTA [address] [place] [address], [phone] , [facility] 4 19:52:28 Problem Notes None recorded. Procedures Surgical History Date Name Laterality Status Provider Name and Address Organization Details Recorded Time 07/23/19 20 Eye Surgery completed Michaelle Pankaj [facility] 03/22/2025 13:33:04 06/04/19 17 Cataract Surgery completed Michaelle Pankaj [facility] 03/22/2025 13:33:04 02/08/19 89 Caesarean Section completed Michaelle Pankaj [facility] 03/22/2025 13:33:04 Anesth knee joint procedure completed Not Available [facility] 08/03/2024 04:04:07 Anes delivery only completed Not Available [facility] 08/03/2024 04:04:07 Removal of tonsils completed Not Available [facility] 08/03/2024 04:04:07 Dilation and Evacuation completed Michaelle Pankaj [facility] 03/22/2025 13:33:04 Arthroscopic Surgery completed Michaelle Pankaj [facility] 03/22/2025 13:33:04 Knee Surgery completed Michaelle Pankaj [facility] 03/22/2025 13:33:04 Imaging Results None recorded. Procedure Notes None recorded. Medical Equipment None Reported. Allergies Allergen ID Allergen Name Allergen Category Reaction Reaction Severity Criticality Documentation Date Start Date Code Code System Note Provider Name and Address Organization Details Recorded Time 1166 erythromy rico medicatio n Not available Not available Not available 04/09/2024 4053 RxNorm Rita Billie null, [facility] 4 14:22:49 1167 lisinopri l medicatio n Not available Not available Not available 04/09/2024 03716 RxNorm Rita Billie null, [facility] 4 14:23:03 Medications Name Sig Start Date Stop Date Status Note LastModified by Organization Details LastModified Time latanopro st 0.005 % eye drops INSTILL 1 DROP INTO LEFT EYE AT BEDTIME 2022 active Not Available Not Available Not Avai lable fluconazo le 100 mg tablet 04/09 completed Not Available Not Available Not Available methocarb janny 500 mg tablet 1-2 po bid prn muscle spasm 12/28 completed Not Available Not Available Not Available diltiazem ER 180 mg capsule,2 4 hr,extend ed release Take 1 capsule (180 mg total) by mouth daily. 2023 active dfname: Syd kirkland; dlname: Robbie; Physicia n_Addr1: [address] [facility]; Physicia n_Addr2: [facility]; Physicia n_City: [place] ; Physicia n_State: [place]; Physicia n_Postal Code: [id number]; NPI: [id number]; Physicia n_Suffix : SHAYNE; [employer] n_Phone: tel:[phone]; [facility] n_Fax: fax:[phone]; Physicia n_Specia lty: Net [employer] Developer ; Not Available Not Available Not Available diltiazem CD 180 mg capsule,e xtended release 24 hr active Not Available Not Available Not Available prednison e 20 mg tablet Take 2 tablets every day by oral route in the morning for 3 days. 12/10 completed Not Available Not Available Not Available chlorthal idone 25 mg tablet 04/09 completed Not Available Not Available Not Available tramadol 50 mg tablet Take 1 tablet every 6-8 hours by oral route, for pain; can take with tylenol. 12/28 completed Not Available Not Available Not Available methotrex ate sodium 2.5 mg tablet Take 10 tablets (25 mg total) by mouth once a week. active dfname: Joanne ng; dlname: Henok ; Physicia n_Addr1: [address] [place]; Physicia n_City: [place]; Physicia n_State: [place]; Physicia n_Postal Code: [id number]; NPI: [id number]; Physicia n_Suffix : MD; [employer] n_Phone: tel:[phone]; Not Available Not Available Not Available nystatin- triamcino lone 100,000 unit/g-0. 1 % topical cream Apply topicall y 2 (two) times a day. 05/13 completed Not Available Not Available Not Available folic acid 1 mg tablet Take 1 tablet (1 mg total) by mouth 4 (four) times a week. active NPI: [id number]; Not Available Not Available Not Available timolol maleate 0.5 % eye drops INSTILL 1 DROP INTO BOTH EYES TWICE A DAY active Not Available Not Available No t Available losartan 100 mg tablet Take 1 tablet by mouth daily. 2024 active Not Available Not Available Not Avai lable doxycycli ne hyclate 100 mg tablet Take 1 tablet twice a day by oral route. 2024 active Not Available Not Available Not Avai lable naproxen 500 mg tablet active Not Available Not Available Not Available rosuvasta tin 5 mg tablet Take 1 tablet by mouth daily. 2024 active Not Available Not Available Not Avai lable Reclast active Not Available Not Avail able Not Available Prolia 60 mg/mL subcutane ous syringe 1 mL by sub-q route. active Not Available Not Available No t Available Simbrinza 1 %-0.2 % eye drops,aniceto pension INSTILL 3 DROP INTO AFFECTED EYE BY OPHTHALM IC ROUTE 3 TIMES PER DAY active Not Available Not Available No t Available Vyzulta 0.024 % eye drops active Not Available Not Available No t Available Vitals Date Recorded Body height Body temperature Heart rate Oxygen saturation Oxygen saturation in Arterial blood by Pulse oximetry Systolic And Diastolic Provider Name and Address Organization Details Last Updated DateTime 5 170.18 cm 98.2 [degF] 73 /min 97 % 97 % 124/71 mm[Hg] Michaelle Lira [facility] 5 11:48:04 Date Recorded Body height Body temperature Heart rate Oxygen saturation Oxygen saturation in Arterial blood by Pulse oximetry Body mass index (BMI) Body weight Systolic And Diastolic Provider Name and Address Organization Details Last Updated DateTime 5 171.45 cm 98 [degF] 70 /min 96 % 96 % 28.9 kg/m2 34824.7 7 g 121/69 mm[Hg] Michaelle Pankaj [facility] 14:08:19 Date Recorded Body height Heart rate Systolic And Diastolic Provider Name and Address Organization Details Last Updated DateTime 02/02/2025 171.45 cm 66 /min 124/74 mm[Hg] Rita Wise [facility] 02/02/2025 08:28:32 Date Recorded Body height Heart rate Body temperature Oxygen saturation Oxygen saturation in Arterial blood by Pulse oximetry Systolic And Diastolic Provider Name and Address Organization Details Last Updated DateTime 171.45 cm 68 /min 97.2 [degF] 97 % 97 % 112/69 mm[Hg] Michaelle Pankaj [facility] 13:31:46 Social History None recorded. Functional Status Question Answer Note LastModified by Organization D etails LastModified Time What is your level of alcohol consumption? None [email or web address] Information not available 08/03/2024 Mental Status None recorded. Family History Relationship Description Onset Age of this Age Resolved Age Notes LastModified by Organization Details LastModified Time Father Problem No Sig Med Hx; Member s: Father [email or web address] Not available 03/22/2025 13:32:16 Father Harmful pattern of use of alcohol [email or web address] Not available 2024 13:32:16 Mother Atrial fibrillation Atrial fibril lation ; Member s: Mother [email or web address] Not available 03/22/2025 13:32:16 Mother Migraine [email or web address] Not availabl e 03/22/2025 13:32:16 Mother Heart disease [email or web address] Not available 2024 13:32:16 Mother Osteoporosis [email or web address] Not avai lable 03/22/2025 13:32:16 Mother Epilepsy 30 [email or web address] Not availabl e 03/22/2025 13:32:16 Sister Malignant neoplasm of breast 41 [email or web address] Not available 2024 13:32:16 Paternal Grandfather Harmful pattern of use of alcohol Not available 2024 13:32:16 Notes:08/03/2024: Mother: Ot her, Stroke Medical History Condition Response Coronary Artery Disease Y Muscle, Joint, or Bone Problems Y Arthritis Y High Cholesterol Y Varicosities Y Hypertension Y Osteoporosis Y Gynecological HistoryNo gynecological history recorded. Obstetrics History GPAL:G 0 P 0 0 0 0 Immunizations Vaccine Type Date Status Note Provider Nam e and Address Organization Details Recorded Time COVID-19, mRNA, LNP-S, PF, 30 mcg/0.3 mL dose 1 completed Not Available [facility] 02/02/2025 08:24:01 COVID-19, mRNA, LNP-S, PF, 30 mcg/0.3 mL dose, charissa-sucrose 2 completed Not Available [facility] 02/02/2025 08:24:01 Td (adult), 5 Lf tetanus toxoid, preservative free, adsorbed 2 completed Not Available [facility] 07/05/2024 11:41:31 Tdap 9 completed Not Available [facility] 07/05/2024 11:41:31 COVID-19, mRNA, LNP-S, PF, 30 mcg/0.3 mL dose 1 completed Not Available [facility] 07/05/2024 11:41:31 COVID-19, mRNA, LNP-S, PF, 30 mcg/0.3 mL dose 1 completed Not Available [facility] 07/05/2024 11:41:31 Past Encounters Encounter ID Performer Location Encounter Start Date Encounter Closed Date Diagnosis/Indication Diagnosis SNOMED-CT Code Diagnosis ICD10 Code Diagnosis IMO Codes Diagnosis Note [id number] Shannan Keller APRN [id number] A_PCP [address] [place] [id number] 1 04/09/2024 14:04:42 04/09/2024 15:31:26 Injury of head 62683361 S09.90XA Contusion of head 442585 009 S00.93XA [id number] ANTONIETTA Carvajal [id number] [id number] [address] [place] [id number] 1 05/13/2024 07:01:04 05/17/2024 10:16:35 Impaired glucose tolerance 9745139 R73.03 High hemog lobin A1c level 706127723 R73.09 Hypocalcemia 3368718 E83 .51 Osteoporosis 68027790 M8 1.0 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 612397205 R90.82 Peripheral venous insufficiency 43101716 I87.2 Restless l egs syndrome 72352835 G25.81 Spinal ajay nosis of lumbar region 60633408 M48.062 Adult heal th examination 948980021 Z00.00 Rheumatoid arthritis 698 38693 M06.9 Calcificat ion of coronary artery 948430689 I25.84 [id number] ANTONIETTA Carvajal [id number] A_PCP [address] [place] [id number] 1 11/30/2024 11:30:03 11/30/2024 12:37:47 Disorder of left sciatic nerve 3977539986 60991 M54.32 8299249 Spasm of c ervical paraspinous muscle 837367674 M62.838 517790 Rheumatoid arthritis 698 29100 M06.9 [id number] ANTONIETTA Carvajal [id number] A_PCP [address] [place] [address] [id number] 1 12/28/2024 14:00:10 12/28/2024 15:04:16 Preoperative state 70431016 Z01.818 [id number] Lumbar radiculopathy 128 644416 M54.16 Spinal ajay nosis of lumbar region 74410050 M48.062 Hypocalcemia 7451575 E83 .51 Osteoporosis 88965893 M8 1.0 Rheumatoid arthritis 698 57945 M06.9 [id number] Shannan [facility] [id number] A_PCP [address] [place] [id number] 1 02/02/2025 08:23:42 02/02/2025 12:45:04 Spinal stenosis of lumbar region 28956046 M48.061 929714 Chronic back pain 126615 002 M54.9 G89.29 74302756 [id number] ANTONIETTA Paul [id number] A_PCP [address] [place] [id number] 1 03/22/2025 13:26:32 03/22/2025 14:19:33 Tick bite 14411011 S40.861A W57.XXXA [id number] - Patient discovered an embedded tick on her right elbow Friday evening after it had been attached for approximat venkata 24-48 hours- The tick was removed with tweezers but was damaged during extraction , preventing identifica tion- Physical examinatio n reveals erythema, swelling, and a palpable lump at the bite site with associated tenderness - Given the duration of attachment and local inflammato ry changes, there is concern for potential tick-borne illness transmissi on including Lyme disease- The clinical presentati on could represent either localized cellulitis from the bite itself or early tick-borne illness- Plan:a. Doxycyclin e twice daily for 10 daysb. Prescripti on to be sent to [facility] pharmacy Acute cellulitis 2730629 009 L03.90 [id number] Health Concerns Section Related Observation LastModified by Organization Detai ls LastModified Time None Recorded Concern Status LastModified by Organization Details LastModified Time None Recorded Advance Directives Directive None Recorded Payers Insurance Date Sequence Insurance Name Policy Number Policy Adhikari Covered Member ID Adhikari Member ID Guarantor Name 12/22/2024 1 [facility] Isabel Emerson [id number] Isabel Emerson 03/22/2025 1 [employer] [id number] Isabel Emerson [id number] Isabel Emerson 12/22/2024 2 [facility] (MEDICARE REPLACEMENT/A DVANTAGE - HMO) [id number] Isabel Emerson [id number] Isabel Emerson Notes Date Note Type Note Provider Name and Address Organization Details Recorded Time 05/13/2024 text/html ROS as noted in the HPI Telehealth follow up for labsThe patient's A1c level is [...] include Prolia, most 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 The patient has stopped taking calcium supplements since the previous office visit.In the review of systems, the patient reports leg pain from venous insufficiency and back pain from spinal stenosis. She does not report any symptoms related to her borderline prediabetes. Doreen Avalos, ANTONIETTA [address] [place] [address], [phone], [facility] 05/15/2024 19:52:59 11/30/2024 text/html ROS as noted in the HPI Isabel Emerson presents with severe neck and back pain limiting her mobility. She reports two areas of her body in agony, causing her to spend days crying and struggling to move.The neck pain started over a week ago after sleeping with a neck pillow. The patient has a history of cervical spine arthritis. The pain is located on the right side, over the trapezius and sternocleidomastoid muscles. She denies any numbness or weakness in her arms. Acetaminophen has not provided relief. The patient had been taking naproxen but stopped after her last blood work showed a GFR of 57.9. However, she took one naproxen before this visit due to severe pain. She has also tried Tylenol and aspirin for pain relief.The patient reports a history of lower back pain, L4, L5 stenosis, and sciatica for years. While it had improved with new footwear, the pain has recently returned with a vengeance and is now located higher up. The sciatica extends all the way down her leg. The severity of the back pain has forced her to sleep in a zero-gravity chair for comfort. She denies any loss of bowel or bladder controlLucy has attempted pain management techniques such as breathing through the pain. She saw a neurosurgeon, Dr. Cuellar, before [place], who discussed fusion surgery. A nurse at a pain clinic refused steroid injections due to her osteoporosis. 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 Mcconnell and a neurosurgeon in [place].Regarding other health issues, the patient mentions that an windows technical specialist found high calcium in her 24-hour urine test, but her PTH is normal. The windows technical specialist recommended Reclast instead of Prolia.Review of SystemsMusculoskeleta l: Positive for neck pain, lower back pain, sciatica.Neurological : Negative for numbness or weakness in arms.Remaining relevant ROS negative ANTONIETTA Carvajal [address] [place] [address],[place], [phone], [facility] 11/30/2024 17:54:41 12/28/2024 text/html ROS as noted in the HPI History of Present IllnessIsabel Emerson, a patient with a history of spinal stenosis, presents for evaluation of worsening back pain and associated symptoms in preparation for upcoming spinal fusion surgery. The patient reports a significant exacerbation of her condition on November 28, 2024, following an active 26 of November holiday.The patient describes her spine as now being fixed in a slipped position, which she is unable to adjust or realign as she could previously. On December 01, she sought medical attention due to severe neck and back pain, reporting that tramadol provided no relief. She is experiencing leg cramps, and is unable to lie prone in bed. She describes the leg cramps as excruciating when combined with her sciatica symptoms. These issues have significantly impacted her sleep, limiting her to only one or two hours at a time.The patient notes that prior to this exacerbation, she was able to walk in her usual spots and climb stairs without difficulty. She denies any breathing problems or chest pain associated with physical activity. The anti-seizure medication gabapentin prescribed for pain was ineffective, though she reports some improvement with prednisone.Regarding her medical history, the patient denies any history of blood clots or excessive bleeding during surgery. Her most recent surgery was an eye procedure performed under conscious sedation.The patient is scheduled for spinal fusion surgery on January 25, 2025, to address the slippage between L4 and L5 vertebrae.Review of SystemsGeneral: Positive for sleep disturbance due to pain.Musculoskeletal: Positive for back pain and sciatica.Neurological : Positive for numbness in leg.Remaining relevant ROS negative ANTONIETTA Carvajal [address] [place] [address], [phone], [facility] 12/28/2024 18:58:38 02/02/2025 text/html ROS as noted in the HPI Isabel presents for follow-up one week after lumbar spine surgery . She reports significant improvement in her pre-operative sciatic pain but is experiencing new post-operative symptoms.Isabel underwent fusion of L4 and L5 vertebrae on January 25, 2025. She reports complete resolution of her sciatic pain, stating I don't feel a shred of the sciatic agony. However, she is experiencing new symptoms including numbness in her feet and lower legs, and soreness in her thighs. Isabel describes difficulty lifting her legs immediately post-surgery, with gradual improvement in her right leg and then her left.Isabel's mobility has improved since surgery, though she still requires assistance. She uses a PowerWalker with a seat at home and occasionally uses her mother's wheelchair for transfers. She can walk a few steps without aid and go to the bathroom independently. She used a cane to come to the office today without difficulty.Isabel reports no fever, body aches, night sweats, or severe chills. She denies any issues with urination or bowel movements, though she has been taking stool softeners due to being on pain medication.For pain management, Isabel has been taking oxycodone 5mg as needed, typically at night . She took two Tylenol this morning for pain relief and typically is just taking Tylenol during the day. Isabel notes that IV Tylenol in the hospital was particularly effective. Shannan Keller APRN [address] [place], [phone], [facility] 02/03/2025 08:00:18 03/22/2025 text/html The patient presents today with a chief complaint of a tick bite discovered Friday and noticed Friday night/Friday morning. She initially thought it was a scab when she felt something while using the bathroom and scratched at it. The tick appeared large and was bleeding when she pulled at it. Her subsequently removed it with tweezers but crushed it in the process, making identification impossible.The bite is located on her right elbow and appears red and swollen with an associated lump that feels sore. The tick was attached from Friday through Friday to Friday, representing approximately 24-48 hours of attachment time. She expresses concern about invasive tick species and associated diseases.She lives with her spouse and has been living in her current location for 10 years. ANTONIETTA Paul [address] [place] [address], [phone], [facility] 03/22/2025 14:15:40 OBGyn Episode No OBEpisode recorded.
--- OUTSIDE RECORDS SUMMARY | 2025-03-31 14:01 | XMS_ITS | Clinical Summary ---
Author Organization [facility] Address [address] [place] [address] Care Team Providers Care Experimental Mechanic Outboard Motors Name Role Phone Kade Cummings MD Primary Care Provider [phone] Allergies Active Allergy Reactions Criticality Noted Date [...] 1971 Mammogram 1992 Colonoscopy 1997 RSV Vaccine 50 years and old er and Patients (1 - Risk 50-74 years 1-dose series) 2002 DXA Bone Density (Females,Ag es 65 and older) 2017 Influenza Vaccine 12/24/2024 Hepatitis B Vaccines Aged Out No long er eligible based on patient's age to complete this topic Medical Devices Implanted Type Area Corporate Safety Manager Device Identifier Shelf Expiration Date Model / Serial / Lot Lens Iol 0 D +16 Loco Mod L Bcnvx 13mm 6mm Posterior Chamber - [id number] Implanted:Qty: 1 on 04/30/2017 by Ric[facility]real [facility] [employer] [employer] SN60WF.160 / [id number] / Lens Iol 0 D +15.5 Loco Mod L Bcnvx 13mm 6mm Posterior - [id number] Implanted:Qty: 1 on 05/28/2017 by Ricardo Villarreal MD at [facility] [place] [employer] SN60WF.155 / [id number] / Insurance [employer] MGD MEDICARE Advance Directives * Full Code (Latest Code Status on File) Date Activated Date Inactivated Comments 07/23/2019 12:50 PM Care Teams Experimental Mechanic Outboard Motors Relationship Specialty Start Date End Date Kade Cummings MD [address] [place] [id number] PCP - General Internal Medicine 04/25/17
--- OUTSIDE RECORDS SUMMARY | 2025-03-31 14:01 | XMS_ITS | Clinical Summary ---
Author Organization [facility] Address [address] [place] [address] Phone Care Team Providers Care Embedded Developer Name Role Phone Doreen Avalos Primary Care Provider [phone] Surgical History Surgery Date Site/Laterality Comments KNEE [...] Last Done Comments Breast Cancer Screening 1952 Colorectal Cancer Screening: Colonoscopy 1950 Pneumococcal Vaccine: 50+ Years (1 of 1 - PCV) 2002 Zoster Vaccines (1 of 2) 2002 Falls Risk Assessment 05/02/2022 Hepatitis C Screening 05/02/2022 Social Influencers of Health Screening 05/02/2022 Hypertension/CHF/CAD Annual BMP Blood Test 05/05/2022 Depression Screening 05/26/2024 COVID-19 Vaccine (3 - 2024-2 6 season) 2025 08/29/2020, 08/08/2020 Influenza Vaccine (#1) 2025 RSV Immunization Adult [...] osteoporosis. No priors. Study acquired on a [employer] densitometer. Imaging of the lumbar spine and [...] forosteoporosis. No priors. Study acquired on a [employer] Advance densitometer. Imaging of thelumbar spine and [...] on 03/19/2022 11:18 AM.Workstation Name - [facility] Gautam Mcconnell MD IMG DXA PROCEDURES Final Re sult from Last 3 Months or Most Recently Relevant to Health Maintenance Insurance [facility] ([facility]) Care Teams Embedded Developer Relationship Specialty Start Date End Date Doreen Avalos PA PCP - General Physician Computer Numerical Control Grinder 11/22/14
--- OUTSIDE RECORDS SUMMARY | 2025-03-31 14:02 | XMS_ITS | Clinical Summary ---
Author Organization [facility] Address [address] [place] [address] Care Team Providers Care Silk Screen Frame Assembler Name Role Phone Doreen Avalos PA-C Primary Care Provider [phone] Allergies Active Allergy Reactions Criticality Noted Date [...] Covid-19 (Pfizer) Dilution Required 08/29/2020,0 08/08/2020 [facility]2012 Family History Medical History Relation [...] age to complete this topic Care Teams Silk Screen Frame Assembler Relationship Specialty Start Date End Date Doreen Avalos PA-C PCP - General Physician Plant Packer 11/22/14
== END 2025-03-31 12:20 | disposition home or self-care (01) ==
LOC: HO.HNS 11:16
PROVIDERS: PCP Physician Assistant Medical; Visit Provider Physician Assistant
DX: M54.50 Low back pain, unspecified (principal)
CPT/HCPCS: 99024

== ENCOUNTER → 2025-03-31 11:24 | Outpatient (BNV) | payer MEDICARE, SELFPAY | PROVIDERS: Visit Provider Radiology Diagnostic Radiology | DX: M43.16 Spondylolisthesis, lumbar region (principal) | CPT/HCPCS: 72110 ==